=== PATIENT | female | born 1995 | race Caucasian/White ===

== ENCOUNTER 2018-09-17 06:26 | Inpatient (IN) | payer MEDICAID, SELFPAY ==
[2018-09-17] VITALS (20 sets, daily range): BP systolic 84–125; BP diastolic 48–78; PULSE 102–130; RESP 16–23; TEMP 36.9–39.3; O2SAT 94–99; BMI 33.4; BMI 33.9
--- NOTE | 2018-09-17 06:30 | CT_ITS ---
STUDY: CT SOFT TISSUE NECK WITH CONTRAST REASON FOR EXAM: Female, 22 years old. Left-sided facial swelling after decompressing a boil. RADIATION DOSAGE (If Supplied By Facility): CTDIvol = ( 21.80 ) mGy, DLP = ( 669.53 ) mGycm TECHNIQUE: The patient was scanned in a multi-detector CT scanner. High resolution transaxial imaging was performed following intravenous administration of 100 ml of Isovue 300 contrast material. Sagittal and coronal images were reconstructed. Individualized dose optimization techniques were used for this CT. COMPARISON: None. FINDINGS: Normal bilateral parotid glands. There is abnormal soft tissue attenuation in the cloth feeder space as well as adjacent to the left masseter muscle and parotid glands consistent with sequela of acute inflammation. There appears to be diffuse groundglass attenuation and soft tissue edema within the subcutaneous tissues adjacent to the mandible suggestive of a local infection. There is no well-defined abscess. There is also some fluid on the right adjacent to the right submandibular gland and in the cloth feeder space. Normal bilateral cloth feeder spaces. Normal bilateral parapharyngeal spaces. Normal bilateral carotid spaces. Normal bilateral sublingual and submandibular glands and spaces. Normal visualized nasopharynx. Normal retropharyngeal space. Normal perivertebral space. Normal visualized bilateral faucial tonsils. The visualized tongue, tongue base and oropharynx are normal. Appears to be an enlarged right-sided submandibular node. This may be reactive. There is also enlargement of a left submandibular node. There are also enlarged bilateral level 2 nodes. The largest right-sided level 2A node measures 2.9 x 1.4 x 1.3 cm. The largest left sided level 2A node measures approximately 3.2 x 1.8 x 1.4 cm in size. There is no demonstrated solid or cystic mass lesion. There is no abnormal contrast enhancement. Normal epiglottis, bilateral vallecula and hypopharynx. The pre-epiglottic and paraglottic adipose spaces are normal. Normal visualized bilateral piriform sinuses, aryepiglottic folds, vocal cords, and arytenoid-cricoid articulations. Normal subglottic trachea. Normal bilateral lobes of the thyroid gland. Normal visualized pulmonary apices. Normal visualized paranasal sinuses. Normal visualized cervical spine. CT/Soft Tissue Neck WITH Contrast IMPRESSION: 1. There is a soft tissue edema and nonspecific fluid in the left cloth feeder space, left submandibular space and left face apparently related to acute infection. The source is unclear from this CT. There is no evidence for abscess. 2. Cervical lymphadenopathy, possibly reactive. Neoplastic etiologies are not excluded. Electronically Signed: Li Brown MD at 7:59 EST , Service support ,
--- NOTE | 2018-09-17 06:31 | ED.VISSUMM ---
- ER Visit Summary Date of Service: 09/17/18 Chief Complaint: [] Facial swelling History of Present Illness: The patient is a 22 F [] patient stated she woke up this morning with significant left cheek and neck swelling. She stated she thinks is from a pimple that she broke open a week ago. In his been sore. Over the last couple days the soreness is increased in her left cheek and upper neck. She took some ibuprofen but came in this morning due to the significant swelling. She is never had this before. She denies this coming from her teeth. Current severity is moderate to severe and she is swallowing her secretions fine. No abscess per patient. Physical Examination: [] Vital signs reviewed General: Well-nourished well-developed Head: Normocephalic atraumatic Eyes: Pupils equal round and reactive to light extraocular movements intact ENT: TMs clear no hemotympanum patient has significant cellulitis and swelling to her left lower cheek and lip. There is submental and the undersurface of her chin has erythema warmth and swelling as well. There is no abscess palpated. Neck: Nontender full range of motion Cardiovascular: Regular rate rhythm no murmurs normal S1-S2 Respiratory: No distress clear to auscultation bilaterally chest nontender Abdomen: Soft nontender nondistended normal bowel sounds no masses Back: Nontender no CVA tenderness Extremities: Nontender active range of motion ?4 extremities no trauma Skin: See above Neuro alert oriented cranial nerves II through XII intact normal strength sensation reflexes Test Results: [] Emergency Department Course and Treatment: [] Patient's soft tissue under her tongue shows no evidence of Ladarius's angina. She does have some discoloration on the inside of her left buccal region and undersurface of her lip. At this time I think she has a significant facial and upper neck cellulitis. IV established and given IV fluids and antibiotics with Zosyn and vancomycin. Pain medicine given. Culture sent of her blood. CT soft tissue neck obtained to rule out abscess. Patient will be admitted for a significant facial cellulitis. Results of her CAT scan will be signed out to the oncoming physician in the emergency department Treatment Plan: [] Disposition: [] Impression: [] Left facial cellulitis Left upper neck cellulitis Critical Care time 74 minutes This note was generated with [employer] software. It may contain incorrect words, spelling, and punctuation that were not noted in review of the chart prior to signing <Michael Andrade - Last Filed: 09/17/18 06:31> - ER Visit Summary Date of Service: 09/17/18 Chief Complaint: [] History of Present Illness: The patient is a 22 F [] Physical Examination: [] Test Results: I assumed the patient's care from the overnight physician at 7:05 AM. Patient is being treated with IV antibiotics for facial cellulitis and swelling. Concern is also for sepsis. CBC showed a white count of 15,100. Normal hemoglobin. No bands. Electrolytes unremarkable. Potassium 3.3. Anion gap of 12. Normal creatinine. Normal liver enzymes. Lactic acid was 1.5. Emergency Department Course and Treatment: Patient treated with IV fluids. IV Zosyn and IV vancomycin for the infection. IV Toradol and p.o. Tylenol for the fever. She also received morphine for pain and Zofran for nausea. Treatment Plan: Repeat exam patient is doing well at oh 7:50 AM. I very spoken to the hospitalist and the patient will be admitted to the PCU. Disposition: Admission Impression: Acute facial cellulitis with soft tissue swelling #2 Sepsis This note was generated with [employer] dictation software. It may contain incorrect words, spelling, and punctuation that were not noted in review of the chart prior to signing <Gee Parsons - Last Filed: 09/17/18 07:56> ED Disposition <Michael Andrade - Last Filed: 09/17/18 06:31> <Gee Parsons - Last Filed: 09/17/18 07:56> - Plan for ED Patient: Chief Complaint: Edema Referrals: Josiah Abdi III, MD [Primary Care Provider] -
[2018-09-17] MEDS: 0.9% Normal Saline 1,000 ML 1000 ML IV ×2 (06:41→07:01)
[2018-09-17] MEDS: Ondansetron 4 MG/2 ML Vial IV ×2 (06:41→11:26)
[2018-09-17] MEDS: Acetaminophen 500 MG Tablet 1000 MG PO (06:42)
[2018-09-17] MEDS: Ketorolac 15 MG/ML Vial IV (06:47)
[2018-09-17] MEDS: Morphine 4 MG/ML Syringe IV (06:48)
[2018-09-17 07:02] LABS: Absolute Lymphocyte Count 0.29 X10^3/ul (0.83-4.51); Absolute Neutrophil Count 13.8 X10^3/uL (2.0-7.7); Basophil# 0.01 X10^3/uL; Basophil% 0.1 % (0-1); Hematocrit 40.5 % (37-47); Hemoglobin 13.8 g/dl (12.0-15.0); Lymphocyte # 0.29 X10^3/ul (4.0); Lymphocyte % 1.9 % (19-41); Mean Corp Hgb Conc 34.1 g/gl (32-36); Mean Corpuscular Hgb 28.6 pg (27.0-32.0); Mean Platelet Vol. 11.7 fl (6.2-12.0); Monocyte# 0.84 X10^3/uL; Monocyte% 5.6 % (0-10); Neutrophil # 13.79 X10^3/uL (2.7-7.7); Neutrophil % 91.2 % (47-70); Platelet Count 161 K/mm3 (150-450); RBC Distribution Width CV 13.7 % (11.6-14.6); RBC Distribution Width SD 41.8 fl (35.1-43.9); Red Blood Count 4.82 M/mm3 (4.2-5.4); White Blood Count 15.1 K/mm3 (4.4-11.0)
[2018-09-17 07:03] LABS: POSITIVE DIFFERENTIAL YES
[2018-09-17 07:04] LABS: Differential Indicated SCAN CRITERIA MET; POSITIVE COUNT NO; POSITIVE MORPHOLOGY NO
[2018-09-17 07:13] LABS: AST(SGOT) 25 U/L (15-37); Alanine Aminotransfer ALT/SGPT 28 U/L (13-56); Albumin, Serum 3.5 g/dL (3.2-5.0); Alkaline Phosphatase 71 U/L (45-117); Anion Gap 12 (5-15); BUN 11 mg/dL (7-18); BUN/Creat Ratio 13.4 RATIO (10-20); Bilirubin, Direct 0.19 mg/dL (0.00-0.30); Calcium,Total 8.6 mg/dL (8.5-10.1); Chloride 106 mmol/L (98-107); Creatinine, Serum 0.82 mg/dL (0.55-1.02); EST Glomerular Filtration Rate 90 mL/min (>60); Est Glom Filt Rate - Afr Amer 109 mL/min (>60); Estimated Creatinine Clearance 106.72 ml/min; Globulin 3.6 g/dL (2.2-4.2); Glucose 125 mg/dL (74-106); Potassium 3.3 mmol/L (3.5-5.1); Protein, Total 7.1 g/dL (6.4-8.2); Sodium Level 137 mmol/L (136-145)
[2018-09-17 07:24] LABS: Differential Comment SCANNED
[2018-09-17 07:27] LABS: Lactic Acid 1.5 mmol/L (0.4-2.0)
--- NOTE | 2018-09-17 07:55 | PCM.HP.STD ---
Problem List (1) Facial cellulitis Status: Acute (2) Sepsis Status: Acute History of Present Illness Date of Admission: 09/17/18 Chief Complaint: Facial swelling The patient is a 22 year old F [] Past Medical History Allergies azithromycin [From Zithromax] Allergy (Verified 09/17/18 06:32) Unknown diphenhydramine HCl [From Benadryl] Allergy (Verified 09/17/18 06:32) Unknown Home Medications: Ambulatory Orders Medication Instructions Recorded NK 09/17/18 Smoking Status: Current every day smoker Review of Systems Constitutional: Denies: Chills, Fever, Weight Change HEENT: Denies: Head Aches, Sinus Congestion, Sinus Drainage Cardiovascular: Denies: Chest Pain, Palpitations Respiratory: Denies: Cough, Shortness of breath at rest, Sputum production Gastrointestinal: Denies: Abdominal Pain, Nausea, Vomiting Genitourinary: Denies: Dysuria Musculoskeletal: Denies: Joint Pain, Joint Tenderness Skin: Denies: Rash, Wounds Neurological: Denies: Numbness, Tingling, Focal weakness Psychiatric: Denies: Anxiety, Depression, Homicidal Ideations, Suicidal Ideations Hematologic/ Lymphatic: Denies: Easy Bruising, Easy Bleeding VTE Information - Inpt Only VTE Present on Admission: No VTE Pharm Prophylaxis ordered?: Yes Patient Problems: Active and Suspected Problems Facial cellulitis (Acute) Sepsis (Acute) - Physical Exam General: Alert, Oriented x3, Cooperative HEENT: Atraumatic, PERRLA, EOMI, Normocephalic Neck: Supple, No JVD, Negative Carotid Bruits Lungs: Clear to auscultation, Normal air movement Cardiovascular: Regular rate, No murmurs Abdomen: Bowel Sounds Present, Soft, Non Tender Extremities: No edema, Capillary Refill Less than 3 Seconds Skin: No rashes, No breakdown Musculoskeletal: No Tenderness to Palpation of Joints or Extremities Neurological: Cranial nerves II-XII grossly intact Psych/Mental Status: Normal Affect, Appropriate Vital Signs Temp Pulse Resp BP Pulse Ox 101.6 F H 120 H 20 H 105/59 L 95 09/17/18 07:31 09/17/18 07:31 09/17/18 07:31 09/17/18 07:31 09/17/18 07:31 Oxygen Delivery Method Room Air Weight: 99.79 kg Body Mass Index (BMI) 33.4 Laboratory Tests Past 24 Hrs 09/17/18 09/17/18 09/17/18 06:40 06:40 06:40 WBC 15.1 H RBC 4.82 Hgb 13.8 Hct 40.5 MCV 84.0 MCH 28.6 MCHC 34.1 RDW 13.7 RDW Differential 41.8 Plt Count 161 MPV 11.7 Immature Gran % (Auto) 1.200 H Neut % (Auto) 91.2 H Lymph % (Auto) 1.9 L [place] % (Auto) 5.6 Eos % (Auto) 0.0 Baso % (Auto) 0.1 Absolute Neuts (auto) 13.8 H Absolute Lymphs (auto) 0.29 L Total Counted Not Reportable Differential Comment SCANNED Sodium 137 Potassium 3.3 L Chloride 106 Carbon Dioxide 19.0 L Anion Gap 12 BUN 11 Creatinine 0.82 Estim Creat Clear Calc 106.72 Est GFR (MDRD) Af Amer 109 Est GFR (MDRD) Non-Af 90 BUN/Creatinine Ratio 13.4 Glucose 125 H Lactic Acid 1.5 Calcium 8.6 Total Bilirubin 1.00 Direct Bilirubin 0.19 AST 25 ALT 28 Alkaline Phosphatase 71 Total Protein 7.1 Albumin 3.5 Globulin 3.6 Assessment/Plan All Active Problems Facial cellulitis (Acute) Sepsis (Acute) Code Visit Inpatient E&M: 43385 Init Hosp L3
--- NOTE | 2018-09-17 09:21 | PCM.RX.CS ---
Consult Pharmacy has been consulted to manage selected antiobiotic: Vancomycin Type of Consult: New start Suspected Infection: Sepsis, Skin/Soft tissue Prior Doses of Antibiotics Received/Current Regimen: VANCOMYCIN 1500MG IV X1 IN ED 09/17/18 @0729 Labs: Sodium 137 mmol/L (136-145) 09/17/18 06:40 Potassium 3.3 mmol/L (3.5-5.1) L 09/17/18 06:40 Chloride 106 mmol/L (98-107) 09/17/18 06:40 Carbon Dioxide 19.0 mmol/L (21.0-32.0) L 09/17/18 06:40 Anion Gap 12 (5-15) 09/17/18 06:40 BUN 11 mg/dL (7-18) 09/17/18 06:40 Creatinine 0.82 mg/dL (0.55-1.02) 09/17/18 06:40 Est GFR (MDRD) Af Amer 109 mL/min (>60) 09/17/18 06:40 Est GFR (MDRD) Non-Af 90 mL/min (>60) 09/17/18 06:40 BUN/Creatinine Ratio 13.4 RATIO (10-20) 09/17/18 06:40 Glucose 125 mg/dL (74-106) H 09/17/18 06:40 Weight used for dosin kg Estimated Creatinine Clearance: 106ML/MIN Goal Trough: 15-20 mcg/mL Pharmacy Plan for Drug Dosing: PLAN/RECOMMENDATIONS 1. Vancomycin 1250mg IV Q8hr per protocol. Start 09/17/18 @1500 2. Trough scheduled prior to the 4th total dose of vancomycin 09/18/18 @0630 3. Pharmacy Service will continue to monitor and adjust dosing as required.
[2018-09-17] MEDS: 0.9% Normal Saline 1,000 ML 100 ML IV ×2 (09:27→18:18)
[2018-09-17] MEDS: oxyCODONE 5 MG Tablet PO ×2 (10:08→15:46)
[2018-09-17] MEDS: 0.9% NaCl Peripheral Flush Adult/Peds IV ×7 (10:45→23:03)
--- NOTE | 2018-09-17 11:44 | PCM.HP.STD ---
<Nicholas Quiroz - Last Filed: 09/17/18 11:44> Problem List (1) Sepsis Status: Acute (2) Facial cellulitis Status: Acute (3) Obesity Status: Chronic (4) Nicotine abuse Status: Chronic History of Present Illness Date of Admission: 09/17/18 Chief Complaint: facial pain and swelling The patient is a 22 year old F with a past medical history of unspecified spinal cancer in childhood in remission, obesity, nicotine abuse, who presented to the emergency room with complaints of facial swelling and pain. This began after she had picked a pimple on her face, left cheek, about 3 days ago. The next day she woke up and it felt very swollen and painful. She began having fevers and chills. She denies history of cellulitis. There is no drainage. She has pain throughout her left cheek, chin, and neck, with increased redness and warmth. She also had some nausea and vomiting, no diarrhea. She denies any tightness in her throat, shortness of breath, or feeling of airway closure. In the ER she appeared septic with tachycardia, leukocytosis, and a fever of 102.7, negative lactate. [] Past Medical History Past Medical History (Chronic Problems): Chronic Problems Obesity (Chronic) Nicotine abuse (Chronic) Allergies azithromycin [From Zithromax] Allergy (Verified 09/17/18 06:32) Unknown diphenhydramine HCl [From Benadryl] Allergy (Verified 09/17/18 06:32) Unknown Home Medications: Ambulatory Orders Medication Instructions Recorded NK 09/17/18 Surgical History: - - Spinal surgery Psychiatric History: No pertinent psych hx BUSINESS ADMINISTRATION PROGRAM CHAIR History: No pertinent BUSINESS ADMINISTRATION PROGRAM CHAIR history Lives: With Family Smoking Status: Current every day smoker Tobacco Use: Cigarettes Alcohol: None Drugs: None - *Family History Maternal History Items: Diabetes Paternal History Items: No pertinent history Sibling History Items: No pertinent history Review of Systems Constitutional: Reports: Chills, Fever. Denies: Weight Change HEENT: Denies: Head Aches, Sinus Congestion, Sinus Drainage Cardiovascular: Denies: Chest Pain, Palpitations Respiratory: Denies: Cough, Shortness of breath at rest, Sputum production Gastrointestinal: Denies: Abdominal Pain, Nausea, Vomiting Genitourinary: Denies: Dysuria Musculoskeletal: Denies: Joint Pain, Joint Tenderness Skin: Reports: Rash, - - Facial and neck erythema, pain, swelling. Denies: Wounds Neurological: Denies: Numbness, Tingling, Focal weakness Psychiatric: Denies: Anxiety, Depression, Homicidal Ideations, Suicidal Ideations Hematologic/ Lymphatic: Denies: Easy Bruising, Easy Bleeding VTE Information - Inpt Only VTE Present on Admission: No VTE Mechan Device Prophylaxis: None VTE Pharm Prophylaxis ordered?: No Reason prophylaxis not ordered:: Procedure Not Indicated Patient Problems: Active and Suspected Problems Facial cellulitis (Acute) Sepsis (Acute) - Physical Exam General: Alert, Oriented x3, Cooperative HEENT: Atraumatic, PERRLA, EOMI, Normocephalic, - - She has swelling, erythema, tenderness of the left cheek, chin, neck, no adenopathy appreciated, she has a muffled voice and difficulty opening her mouth Neck: Supple, No JVD, Negative Carotid Bruits Lungs: Clear to auscultation, Normal air movement Cardiovascular: Regular rate, No murmurs Abdomen: Bowel Sounds Present, Soft, Non Tender Extremities: No edema, Capillary Refill Less than 3 Seconds Skin: No rashes, No breakdown Musculoskeletal: No Tenderness to Palpation of Joints or Extremities Neurological: Cranial nerves II-XII grossly intact Psych/Mental Status: Normal Affect, Appropriate, Alert and oriented to time, place, person, mood and affect Vital Signs Temp Pulse Resp BP Pulse Ox 98.6 F 108 H 16 87/52 L 95 09/17/18 10:46 09/17/18 11:00 09/17/18 10:46 09/17/18 10:46 09/17/18 10:46 Oxygen Delivery Method Room Air Weight: 223 lb 1.725 oz Body Mass Index (BMI) 33.9 Laboratory Tests Past 24 Hrs 09/17/18 09/17/18 09/17/18 06:40 06:40 06:40 WBC 15.1 H RBC 4.82 Hgb 13.8 Hct 40.5 MCV 84.0 MCH 28.6 MCHC 34.1 RDW 13.7 RDW Differential 41.8 Plt Count 161 MPV 11.7 Immature Gran % (Auto) 1.200 H Neut % (Auto) 91.2 H Lymph % (Auto) 1.9 L [place] % (Auto) 5.6 Eos % (Auto) 0.0 Baso % (Auto) 0.1 Absolute Neuts (auto) 13.8 H Absolute Lymphs (auto) 0.29 L Total Counted Not Reportable Differential Comment SCANNED Sodium 137 Potassium 3.3 L Chloride 106 Carbon Dioxide 19.0 L Anion Gap 12 BUN 11 Creatinine 0.82 Estim Creat Clear Calc 106.72 Est GFR (MDRD) Af Amer 109 Est GFR (MDRD) Non-Af 90 BUN/Creatinine Ratio 13.4 Glucose 125 H Lactic Acid 1.5 Calcium 8.6 Total Bilirubin 1.00 Direct Bilirubin 0.19 AST 25 ALT 28 Alkaline Phosphatase 71 Total Protein 7.1 Albumin 3.5 Globulin 3.6 Assessment/Plan All Active Problems Facial cellulitis (Acute) Sepsis (Acute) 1. Acute sepsis 2/2 facial cellulitis - Continue vanc/zosyn. Discussed with Infectious disease, with trismus and muffled voice she is at risk for developing airway compromise and the maxilofacial surgeon will need consulted. Sepsis as evidenced by WBC elevation, fever, tachycardia, negative lactate. 2. Nicotine abuse - declines patch 3. Obesity - dietary eval 4. Hypokalemia - replete. 5. Hx spinal cancer as child, in remission since 2011 s/p surgery and rads, treated by [facility] DVT ppx: early ambulation DC planning: likely home with family at co. This patient was seen by Nicholas Quiroz PA-C under the supervision of Doctor Caceres. <Geeta Caceres - Last Filed: 09/17/18 14:24> Problem List (1) Facial cellulitis Status: Acute (2) Sepsis Status: Acute History of Present Illness The patient is a 22 year old F [] Past Medical History Allergies azithromycin [From Zithromax] Allergy (Verified 09/17/18 06:32) Unknown diphenhydramine HCl [From Benadryl] Allergy (Verified 09/17/18 06:32) Unknown - Physical Exam Vital Signs Temp Pulse Resp BP Pulse Ox 99.7 F H 112 H 18 89/56 L 99 09/17/18 12:48 09/17/18 12:48 09/17/18 12:48 09/17/18 12:48 09/17/18 12:48 Oxygen Delivery Method Room Air Weight: 101.2 kg Body Mass Index (BMI) 33.9 Intake and Output for Last 24 Hours 09/15/18 09/16/18 09/17/18 23:59 23:59 23:59 Intake Total 3312 / 3312 Balance 3312 / 3312 Laboratory Tests Past 24 Hrs 09/17/18 09/17/18 09/17/18 06:40 06:40 06:40 WBC 15.1 H RBC 4.82 Hgb 13.8 Hct 40.5 MCV 84.0 MCH 28.6 MCHC 34.1 RDW 13.7 RDW Differential 41.8 Plt Count 161 MPV 11.7 Immature Gran % (Auto) 1.200 H Neut % (Auto) 91.2 H Lymph % (Auto) 1.9 L [place] % (Auto) 5.6 Eos % (Auto) 0.0 Baso % (Auto) 0.1 Absolute Neuts (auto) 13.8 H Absolute Lymphs (auto) 0.29 L Total Counted Not Reportable Differential Comment SCANNED Sodium 137 Potassium 3.3 L Chloride 106 Carbon Dioxide 19.0 L Anion Gap 12 BUN 11 Creatinine 0.82 Estim Creat Clear Calc 106.72 Est GFR (MDRD) Af Amer 109 Est GFR (MDRD) Non-Af 90 BUN/Creatinine Ratio 13.4 Glucose 125 H Lactic Acid 1.5 Calcium 8.6 Total Bilirubin 1.00 Direct Bilirubin 0.19 AST 25 ALT 28 Alkaline Phosphatase 71 Total Protein 7.1 Albumin 3.5 Globulin 3.6 Assessment/Plan This patient was seen in conjunction with VANDANA Aggarwal. I have independently interviewed and examined the patient and reviewed pertinent historical, laboratory, and other data. Please refer to VANDANA Aggarwal note for his patient's presentation, findings, and recommendations. I have reviewed and his note and concur with his documentation 22-year-old female with past medical history of spinal tumor, unspecified type, status post surgical removal, radiation therapy in childhood, BCC who comes in with complaints of left facial pain as well as swelling that started suddenly. Patient remembers picking a pimple on the left cheek, woke up and felt a very swollen and painful. It was associated with chills and fever. She denied any tightness in the throat or shortness of breath. Denied any chest pain or dizziness. She admits to some nausea and vomiting but no diarrhea. PMHx: Obesity, nicotine abuse PSHx: Post spinal tumor removal FHx: DM in mother SHX: Smokes, does not drink, denies use of illicit drugs ROS; Essentially negative apart from HPI Physical Exam: Gen: Looks in some discomfort, obese, not pale, not jaundiced, able to complete sentences Head: Swelling of her left lower hamzah and neck, spreading to left mandibular region and lips. No swelling of tongue or pharynx. CVS:HS I +II, regular, no murmurs RESP: CTA GI: BS present and normal, soft, nontender, no palpable organs EXT:No edema ASSESSMENT: 1. Sepsis secondary to left jaw/facial cellulitis 2. Nicotine dependence 3. Hypokalemia 4. Obesity 5. H/o spinal tumor s/p removal 6. DVT PPx- Early ambulation Plan: Start on empiric antibiotics, ID consult, Monitor vitals closely IV fluids resusitation, strict I & Os Replace potassium Labs in a.m. Follow-up on blood cultures Code Visit Inpatient E&M: 43519 Init Hosp L3
--- NOTE | 2018-09-17 12:15 | PCM.HP.ID ---
Problem List (1) Facial cellulitis Status: Acute Reason for Consult: facial cellulitis Consulted by: Dr. Caceres History of Present Illness: The patient is a 22 year old F with h/o obesity and smoking who presented to ED this AM with sudden onset of diffuse facial swelling, shakes/chills, severe 10/10 aching jaw pain. Had pimple on L chin several days ago. Area around it with some soreness, but sx acutely worsened when she woke up this AM. No drainage. Having difficulty opening jaw and having some voice changes. No recent abx. Denies SOB. Mouth is dry, no issues with handling secretions. Had some associated n/v this AM. Came to ED, CT done, bcx sent, started on vanc/zosyn and admitted. Full ROS performed and neg except as noted above. Denies any h/o skin abscess or MRSA infection. No h/o dental problems or infections. - Medical History Past Medical History (Chronic Problems): Chronic Problems Obesity (Chronic) Nicotine abuse (Chronic) Allergies/Adverse Reactions: Allergies azithromycin [From Zithromax] Allergy (Verified 09/17/18 06:32) Unknown diphenhydramine HCl [From Benadryl] Allergy (Verified 09/17/18 06:32) Unknown Home Medications: Ambulatory Orders Medication Instructions Recorded NK 09/17/18 - Social History SMOKING STATUS:: Current every day smoker Vital Signs Temp Pulse Resp BP Pulse Ox 98.6 F 108 H 16 87/52 L 95 09/17/18 10:46 09/17/18 11:00 09/17/18 10:46 09/17/18 10:46 09/17/18 11:50 Oxygen Delivery Method Room Air Weight: 101.2 kg Body Mass Index (BMI) 33.9 Laboratory Tests Past 24 Hrs 09/17/18 09/17/18 09/17/18 06:40 06:40 06:40 WBC 15.1 H RBC 4.82 Hgb 13.8 Hct 40.5 MCV 84.0 MCH 28.6 MCHC 34.1 RDW 13.7 RDW Differential 41.8 Plt Count 161 MPV 11.7 Immature Gran % (Auto) 1.200 H Neut % (Auto) 91.2 H Lymph % (Auto) 1.9 L [place] % (Auto) 5.6 Eos % (Auto) 0.0 Baso % (Auto) 0.1 Absolute Neuts (auto) 13.8 H Absolute Lymphs (auto) 0.29 L Total Counted Not Reportable Differential Comment SCANNED Sodium 137 Potassium 3.3 L Chloride 106 Carbon Dioxide 19.0 L Anion Gap 12 BUN 11 Creatinine 0.82 Estim Creat Clear Calc 106.72 Est GFR (MDRD) Af Amer 109 Est GFR (MDRD) Non-Af 90 BUN/Creatinine Ratio 13.4 Glucose 125 H Lactic Acid 1.5 Calcium 8.6 Total Bilirubin 1.00 Direct Bilirubin 0.19 AST 25 ALT 28 Alkaline Phosphatase 71 Total Protein 7.1 Albumin 3.5 Globulin 3.6 - Other Studies Radiology: [] reviewed Other Studies: [] Route of nutrition/ use of supplements: [] Nutritional Intake: [] IV Site: [] [place] Catheter: [] - Physical Exam General: Alert, Oriented x3, Cooperative, - - ill appearing, uncomfortable HEENT: Atraumatic, PERRLA, EOMI, - - Lower half of face with diffuse redness, swelling, and tenderness; L more than R. Neck: Supple Lungs: Clear to auscultation, Normal air movement Cardiovascular: Regular rate, Regular Rhythm, No murmurs Abdomen: Soft, Non Tender, Non-Distended Extremities: No edema Skin: No rashes - no other rashes IV Site: Peripheral, without redness Musculoskeletal: No Tenderness to Palpation of Joints or Extremities Neurological: Cranial nerves II-XII grossly intact - Assessment/Plan Antibiotics: [] Assessment/Plan: [] Active and Suspected Problems Facial cellulitis (Acute) Sepsis (Acute) sepsis due to facial cellulitis - concern for possible Ladarius's angina. CT shows possible involvement of submandibular space. Bcx pending. Difficulty opening jaw and some voice changes. Will cover with vanc/unasyn, recommend OMFS eval; primary team will contact. Will follow, thank you, d/w primary team.
[2018-09-17] MEDS: Acetaminophen 325 MG Tablet 650 MG PO ×2 (13:19→21:19)
--- NOTE | 2018-09-17 17:18 | PCM.CONS.GEN ---
Problem List (1) Facial cellulitis Status: Acute (2) Sepsis Status: Acute Reason for Consult Date of Consultation: 09/17/18 Reason for Consultation: facial cellulitis History of Present Illness: The patient is a 22 year old F Who presents with acute left cheek swelling after popping a pimple over the skin. This rapidly became swollen and painful over the last 2 days. This has improved on IV antibiotics over the course of today. She reports swelling and tightness over the left neck has subsided and currently denies hoarseness, dysphagia, or worsening pain. She denies prior occurrence or frequent severe infection. She denies diabetes or immune suppression. She denies dental caries or infection. She denies animal or insect bites. 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 Denies: Difficulty Hearing, Difficulty Swallowing, Post Nasal Drip, Sinus Congestion Cardiovascular: Denies: Chest Pain, Chest Pressure, Chest Tightness Respiratory: Denies: Cough, Hemoptysis, Shortness of Breath Gastrointestinal: Denies: Abdominal Pain Genitourinary: Denies: Dysuria Musculoskeletal: Denies: Arm Pain, Back Pain, Neck Pain Neurological: Denies: Balance problems, Blurred vision, Difficulty swallowing Hematologic/ Lymphatic: Denies: Anemia, Easy Bruising, Easy Bleeding Patient Problems: Active and Suspected Problems Facial cellulitis (Acute) Sepsis (Acute) Subjective: Patient reports that her neck swelling has subsided and that she feels there has been improvement in the swelling of her left face and cheek. Objective: Well appearing female, eating dinner at bedside without difficultly. Soft, moderately tender edema of the left cheek with overlying erythema is noted. No consolidation or pointing to suggest abscess is noted. - Physical Exam General: Alert, Oriented x3, Cooperative, No apparent distress HEENT: Atraumatic, PERRLA, EOMI, Normocephalic, TM's Clear, EAC Clear Oral: Moist Mucosa, No Gingival or Mucosal Lesions/ Ulcerations, - - good dental condition wihtout caries Neck: Supple, No Nodes Lungs: Normal air movement, No rhonchi, No wheeze Cardiovascular: Regular rate, Regular Rhythm Extremities: No clubbing, No cyanosis Skin: - - mild erythema over left cheek Lymphatic: - - shotty adenopathy left neck Neurological: Cranial nerves II-XII grossly intact Psych/Mental Status: Normal Affect, Alert and oriented to time, place, person, mood and affect Vital Signs Temp Pulse Resp BP Pulse Ox 99.2 F H 112 H 20 H 89/64 L 96 09/17/18 15:44 09/17/18 16:39 09/17/18 15:44 09/17/18 15:44 09/17/18 15:44 Oxygen Delivery Method Room Air Weight: 101.2 kg Body Mass Index (BMI) 33.9 Intake and Output for Last 24 Hours 09/15/18 09/16/18 09/17/18 23:59 23:59 23:59 Intake Total 3312 / 3312 Balance 3312 / 3312 Laboratory Tests Past 24 Hrs 09/17/18 09/17/18 09/17/18 06:40 06:40 06:40 WBC 15.1 H RBC 4.82 Hgb 13.8 Hct 40.5 MCV 84.0 MCH 28.6 MCHC 34.1 RDW 13.7 RDW Differential 41.8 Plt Count 161 MPV 11.7 Immature Gran % (Auto) 1.200 H Neut % (Auto) 91.2 H Lymph % (Auto) 1.9 L Terry % (Auto) 5.6 Eos % (Auto) 0.0 Baso % (Auto) 0.1 Absolute Neuts (auto) 13.8 H Absolute Lymphs (auto) 0.29 L Total Counted Not Reportable Differential Comment SCANNED Sodium 137 Potassium 3.3 L Chloride 106 Carbon Dioxide 19.0 L Anion Gap 12 BUN 11 Creatinine 0.82 Estim Creat Clear Calc 106.72 Est GFR (MDRD) Af Amer 109 Est GFR (MDRD) Non-Af 90 BUN/Creatinine Ratio 13.4 Glucose 125 H Lactic Acid 1.5 Calcium 8.6 Total Bilirubin 1.00 Direct Bilirubin 0.19 AST 25 ALT 28 Alkaline Phosphatase 71 Total Protein 7.1 Albumin 3.5 Globulin 3.6 Assessment/Plan All Active Problems Facial cellulitis (Acute) Sepsis (Acute) Acute cellulitis of left face and cheek following trauma to facial skin lesion. CT is reviewed and I see no clinical evidence of abscess. She reports improvement with IV antibiotic and I would anticipate ongoing improvement. We discussed that signs of progression such as increasing pain, redness, firmness, enlargement, or continue fever and elevated white count may suggest abscess requiring surgical intervention, but that I feel the risk for this is low given her otherwise good health. I will continue to follow hospital course and may be notified of any progression for evaluation but agree with the current course of treatment.
[2018-09-17] MEDS: Calcium Carbonate 500 MG Tablet 1000 MG PO (21:19)
[2018-09-17] MEDS: Morphine 2 MG/ML Syringe 1 MG IV (21:33)
[2018-09-17] MEDS: 0.9% Normal Saline 1,000 ML 999 ML IV (23:03)
[2018-09-18] VITALS (17 sets, daily range): BP systolic 88–110; BP diastolic 50–69; PULSE 103–129; RESP 14–26; TEMP 36.8–37.9; O2SAT 94–99
--- NOTE | 2018-09-18 03:09 | EKG12_ITS ---
Test Reason : CP Blood Pressure : / mmHG Vent. Rate : 124 BPM Atrial Rate : 124 BPM P-R Int : 120 ms QRS Dur : 080 ms QT Int : 280 ms P-R-T Axes : 049 034 -08 degrees QTc Int : 402 ms Sinus tachycardia Low voltage QRS Nonspecific T wave abnormality Abnormal ECG Confirmed by KENISHA ROWE, CHACHA ([id number]), material expeditor DEANDRE BERUMEN ([id number]) on 09/20/2018 8:30:30 AM Referred By: MADHAV Confirmed By:CHACHA DE MD
[2018-09-18] MEDS: Acetaminophen 325 MG Tablet 650 MG PO ×3 (05:10→21:55)
[2018-09-18] MEDS: 0.9% Normal Saline 1,000 ML 100 ML IV ×2 (06:56→23:20)
[2018-09-18 07:12] LABS: Anion Gap 11 (5-15); BUN 6 mg/dL (7-18); BUN/Creat Ratio 8.6 RATIO (10-20); Calcium,Total 6.8 mg/dL (8.5-10.1); Chloride 112 mmol/L (98-107); EST Glomerular Filtration Rate 108 mL/min (>60); Est Glom Filt Rate - Afr Amer 131 mL/min (>60); Estimated Creatinine Clearance 125.01 ml/min; Glucose 93 mg/dL (74-106); Potassium 3.1 mmol/L (3.5-5.1); Sodium Level 142 mmol/L (136-145)
[2018-09-18 07:28] LABS: Vancomycin, Trough Level 11.2 ug/mL (5.0-15.0)
[2018-09-18] MEDS: oxyCODONE 5 MG Tablet PO ×3 (07:46→17:26)
[2018-09-18 08:31] LABS: Magnesium 1.4 mg/dL (1.6-2.6)
--- NOTE | 2018-09-18 10:25 | CASEMGMT ---
JEFF GRANGER assessment: Face to Face with patient for initial transition planning/care coordination assessment. JEFF GRANGER introduced self and role at [facility], pt voices understanding and consents to assessment at this time. Pt is lying in bed in no distress at this time. Pt is A/Ox4 at this time and answer all questions appropriately at this time. Pt's sig other at bedside during assessment. Care providers, pharmacy, and demographics verified at this time. PCP: Josiah Abdi Specialists: Pt states currently has no specialists. Preferred Pharmacy: [facility] retail pharm Insurance: [facility] Prescription Benefit: [facility] Living Will/HPOA: Pt states does not have LW/HPOA and declines info at this time. LNOK: Dominga Barker, mother; Margie Barker, grandmother Living Arrangements: Pt states lives with boyfriend and 2 children in house and states no concerns at home at this time. Pt is independent with ADL's. Transportation: Pt states drives self and states no transportation concerns at this time. DME/HHC: Pt states does not have any current DME and states no need for any at this time. Pt states no hx of HHC or SNF in the past. Pt states no concerns with going home at time of dishcarge. Pt states is currently unemployed. Pt states smokes 1/2pack/day and does not drink ETOH. Pt state no further concerns/needs at this time. CM to follow for any further discharge planning/needs. Advised pt to ask for CM if any further questions/concerns/needs arise, voices understanding. Plan: [place] JEFF GRANGER
--- NOTE | 2018-09-18 10:25 | PCM.PN.ID ---
Patient Problems: Active and Suspected Problems Facial cellulitis (Acute) Sepsis (Acute) Subjective: Feeling a little better, jaw and swelling slightly improved. Fever overnight. No n/v/d with abx. - Physical Exam General: Alert, Cooperative, No apparent distress Neck: - - diffuse swelling, redness, slightly improved. Mild induration over chin. Lungs: Clear to auscultation, Normal air movement Cardiovascular: Regular rate, Regular Rhythm Abdomen: Soft, Non Tender, Non-Distended Skin: No rashes - no other rash Vital Signs Temp Pulse Resp BP Pulse Ox 99.0 F 126 H 14 105/58 L 99 09/18/18 09:31 09/18/18 09:31 09/18/18 09:31 09/18/18 09:31 09/18/18 09:31 Oxygen Delivery Method Room Air Weight: 101.2 kg Body Mass Index (BMI) 33.9 Intake and Output for Last 24 Hours 09/16/18 09/17/18 09/18/18 23:59 23:59 23:59 Intake Total 6155.5 / 6155.5 2197 / 8 Output Total 200 / 200 Balance 5955.5 / 5955.5 2197 / 8 Laboratory Tests Past 24 Hrs 09/18/18 09/18/18 09/18/18 06:25 06:25 06:25 Sodium 142 Potassium 3.1 L Chloride 112 H Carbon Dioxide 19.0 L Anion Gap 11 BUN 6 L Creatinine 0.70 Estim Creat Clear Calc 125.01 Est GFR (MDRD) Af Amer 131 Est GFR (MDRD) Non-Af 108 BUN/Creatinine Ratio 8.6 L Glucose 93 Calcium 6.8 L Magnesium 1.4 L Vancomycin Trough 11.2 Medical Necessity - Tobacco Use Smoking Status: Current every day smoker Tobacco Use: Cigarettes Route of nutrition/ use of supplements: [] Nutritional Intake: [] IV Site: [] Peraza Catheter: [] - Assessment/Plan Antibiotics: [] Assessment/Plan: [] Active and Suspected Problems Facial cellulitis (Acute) Sepsis (Acute) sepsis due to facial cellulitis - some improvement, bcx neg so far, continue vanc/unasyn. Will follow
--- NOTE | 2018-09-18 10:55 | PCM.RX.CS ---
Consult Pharmacy has been consulted to manage selected antiobiotic: Vancomycin Type of Consult: Follow-up Suspected Infection: Skin/Soft tissue Prior Doses of Antibiotics Received/Current Regimen: Medications Vancomycin HCl 1,250 mg/ (Sodium Chloride) 275 mls @ 167 mls/hr IV Q8H [id number] Last Admin: 09/18/18 07:41 Dose: 167 mls/hr Labs: Sodium 142 mmol/L (136-145) 09/18/18 06:25 Potassium 3.1 mmol/L (3.5-5.1) L 09/18/18 06:25 Chloride 112 mmol/L (98-107) H 09/18/18 06:25 Carbon Dioxide 19.0 mmol/L (21.0-32.0) L 09/18/18 06:25 Anion Gap 11 (5-15) 09/18/18 06:25 BUN 6 mg/dL (7-18) L 09/18/18 06:25 Creatinine 0.70 mg/dL (0.55-1.02) 09/18/18 06:25 Est GFR (MDRD) Af Amer 131 mL/min (>60) 09/18/18 06:25 Est GFR (MDRD) Non-Af 108 mL/min (>60) 09/18/18 06:25 BUN/Creatinine Ratio 8.6 RATIO (10-20) L 09/18/18 06:25 Glucose 93 mg/dL (74-106) 09/18/18 06:25 Vancomycin Trough 11.2 ug/mL (5.0-15.0) 09/18/18 06:25 Goal Trough: 10-15 mcg/mL Pharmacy Plan for Drug Dosin hour trough 11.2 mcg/mL. D/W Dr Fall, will adjust goal level to 10-15 mcg/mL and leave dose the same. Recheck per protocol in 4 days. Pharmacy Service will continue to monitor and adjust dosing as required. Follow-Up Labs: Trough Vancomycin - 2/2 @ 0630
--- NOTE | 2018-09-18 10:58 | PHA.PHARE_ITS ---
Consult Pharmacy has been consulted to manage selected antiobiotic: Vancomycin Type of Consult: Follow-up Suspected Infection: Skin/Soft tissue Prior Doses of Antibiotics Received/Current Regimen: Medications Vancomycin HCl 1,250 mg/ (Sodium Chloride) 275 mls @ 167 mls/hr IV Q8H [id number] Last Admin: 09/18/18 07:41 Dose: 167 mls/hr Labs: Sodium 142 mmol/L (136-145) 09/18/18 06:25 Potassium 3.1 mmol/L (3.5-5.1) L 09/18/18 06:25 Chloride 112 mmol/L (98-107) H 09/18/18 06:25 Carbon Dioxide 19.0 mmol/L (21.0-32.0) L 09/18/18 06:25 Anion Gap 11 (5-15) 09/18/18 06:25 BUN 6 mg/dL (7-18) L 09/18/18 06:25 Creatinine 0.70 mg/dL (0.55-1.02) 09/18/18 06:25 Est GFR (MDRD) Af Amer 131 mL/min (>60) 09/18/18 06:25 Est GFR (MDRD) Non-Af 108 mL/min (>60) 09/18/18 06:25 BUN/Creatinine Ratio 8.6 RATIO (10-20) L 09/18/18 06:25 Glucose 93 mg/dL (74-106) 09/18/18 06:25 Vancomycin Trough 11.2 ug/mL (5.0-15.0) 09/18/18 06:25 Goal Trough: 10-15 mcg/mL Pharmacy Plan for Drug Dosin hour trough 11.2 mcg/mL. D/W Dr Fall, will adjust goal level to 10-15 mcg/mL and leave dose the same. Recheck per protocol in 4 days. Pharmacy Service will continue to monitor and adjust dosing as required. Follow-Up Labs: Trough Vancomycin - 2/2 @ 0630
[2018-09-18] MEDS: Ondansetron 4 MG/2 ML Vial IV (11:33)
--- NOTE | 2018-09-18 12:20 | PCM.PROGNOTE ---
Patient Problems: Active and Suspected Problems Facial cellulitis (Acute) Sepsis (Acute) Subjective: Continues to have fevers, she does note that her face swelling is beginning to improve. She did however have a slight increase in swelling and pain in the neck and chest. She continues to be tachycardic-sinus tachycardia. No shortness of breath, cough, sinusitis. No discharge. - Physical Exam General: Alert, Oriented x3, Cooperative HEENT: Atraumatic, PERRLA, EOMI, Normocephalic Neck: Supple, No JVD, Negative Carotid Bruits Lungs: Clear to auscultation, Normal air movement Cardiovascular: Regular rate, No murmurs Abdomen: Bowel Sounds Present, Soft, Non Tender Extremities: No edema, Capillary Refill Less than 3 Seconds Skin: No rashes, No breakdown, - - Erythema appears to have slightly increased to the upper chest. Swelling of the face is decreased. vat tender to palpation across the neck and cheek. Positive warmth. No expressible discharge. Musculoskeletal: No Tenderness to Palpation of Joints or Extremities Neurological: Cranial nerves II-XII grossly intact Psych/Mental Status: Normal Affect, Appropriate, Alert and oriented to time, place, person, mood and affect Vital Signs Temp Pulse Resp BP Pulse Ox 99.0 F 120 H 14 105/58 L 99 09/18/18 09:31 09/18/18 11:00 09/18/18 09:31 09/18/18 09:31 09/18/18 09:31 Oxygen Delivery Method Room Air Weight: 223 lb 1.725 oz Body Mass Index (BMI) 33.9 Intake and Output for Last 24 Hours 09/16/18 09/17/18 09/18/18 23:59 23:59 23:59 Intake Total 6155.5 / 6155.5 2197 Output Total 200 / 200 Balance 5955.5 / 5955.5 2197 Laboratory Tests Past 24 Hrs 09/18/18 09/18/18 09/18/18 06:25 06:25 06:25 Sodium 142 Potassium 3.1 L Chloride 112 H Carbon Dioxide 19.0 L Anion Gap 11 BUN 6 L Creatinine 0.70 Estim Creat Clear Calc 125.01 Est GFR (MDRD) Af Amer 131 Est GFR (MDRD) Non-Af 108 BUN/Creatinine Ratio 8.6 L Glucose 93 Calcium 6.8 L Magnesium 1.4 L Vancomycin Trough 11.2 Medical Necessity - Tobacco Use Smoking Status: Current every day smoker Tobacco Use: Cigarettes Assessment/Plan All Active Problems Facial cellulitis (Acute) Sepsis (Acute) 1. Acute sepsis 2/2 facial cellulitis -infectious disease and ENT are following. Persistent fevers, however these are lower, and tachycardia. Continue Vanco and Unasyn per infectious disease. Tachypnea resolved. 2. Nicotine abuse - declines patch 3. Obesity - dietary eval 4. Hypokalemia - replete. Mag is low at 1.4, will provide 4 g IV. Recheck in a.m., check phosphorus. 5. Hx spinal cancer as child, in remission since 2011 s/p surgery and rads, treated by [facility]. DVT ppx: early ambulation DC planning: likely home with family at dc. This patient was seen by Nicholas Quiroz PA-C under the supervision of Doctor Singh
--- NOTE | 2018-09-18 12:24 | PN_ITS ---
Patient Problems: Active and Suspected Problems Facial cellulitis (Acute) Sepsis (Acute) Subjective: Continues to have fevers, she does note that her face swelling is beginning to improve. She did however have a slight increase in swelling and pain in the neck and chest. She continues to be tachycardic-sinus tachycardia. No sh ortness of breath, cough, sinusitis. No discharge. - Physical Exam General: Alert, Oriented x3, Cooperative HEENT: Atraumatic, PERRLA, EOMI, Normocephalic Neck: Supple, No JVD, Negative Carotid Bruits Lungs: Clear to auscultation, Normal air movement Cardiovascular: Regular rate, No murmurs Abdomen: Bowel Sounds Present, Soft, Non Tender Extremities: No edema, Capillary Refill Less than 3 Seconds Skin: No rashes, No breakdown, - - Erythema appears to have slightly increased to the upper chest. Swelling of the face is decreased. mangle tender cloth to palpation across the neck and cheek. Positive warmth. No expressible discharge. Musculoskeletal: No Tenderness to Palpation of Joints or Extremities Neurological: Cranial nerves II-XII grossly intact Psych/Mental Status: Normal Affect, Appropriate, Alert and oriented to time, place, person, mood and affect Vital Signs Temp Pulse Resp BP Pulse Ox 99.0 F 120 H 14 105/58 L 99 09/18/18 09:31 09/18/18 11:00 09/18/18 09:31 09/18/18 09:31 09/18/18 09:31 Oxygen Delivery Method Room Air Weight: 223 lb 1.725 oz Body Mass Index (BMI) 33.9 Intake and Output for Last 24 Hours 09/16/18 09/17/18 09/18/18 23:59 23:59 23:59 Intake Total 6155.5 / 6155.5 2197 Output Total 200 / 200 Balance 5955.5 / 5955.5 2197 Laboratory Tests Past 24 Hrs 09/18/18 09/18/18 09/18/18 06:25 06:25 06:25 Sodium 142 Potassium 3.1 L Chloride 112 H Carbon Dioxide 19.0 L Anion Gap 11 BUN 6 L Creatinine 0.70 Estim Creat Clear Calc 125.01 Est GFR (MDRD) Af Amer 131 Est GFR (MDRD) Non-Af 108 BUN/Creatinine Ratio 8.6 L Glucose 93 Calcium 6.8 L Magnesium 1.4 L Vancomycin Trough 11.2 Medical Necessity - Tobacco Use Smoking Status: Current every day smoker Tobacco Use: Cigarettes Assessment/Plan All Active Problems Facial cellulitis (Acute) Sepsis (Acute) 1. Acute sepsis 2/2 facial cellulitis -infectious disease and ENT are following. Persistent fevers, however these are lower, and tachycardia. Continue Vanco and Unasyn per infectious disease. Tachypnea resolved. 2. Nicotine abuse - declines patch 3. Obesity - dietary eval 4. Hypokalemia - replete. Mag is low at 1.4, will provide 4 g IV. Recheck in a.m., check phosphorus. 5. Hx spinal cancer as child, in remission since 2011 s/p surgery and rads, treated by [facility]. DVT ppx: early ambulation DC planning: likely home with family at dc. This patient was seen by Nicholas Quiroz PA-C under the supervision of Doctor Singh
[2018-09-18] MEDS: Magnesium Sulfate 4gm/100mL 4 GM/100 ML IV.SOLN. IV (13:05)
[2018-09-18 13:13] LABS: Phosphorus 1.1 mg/dL (2.5-4.9)
[2018-09-18] MEDS: Na Biphos/Potassium Phosphate PACKET 1 PACKET PO ×2 (15:25→21:52)
--- NOTE | 2018-09-18 17:11 | PCM.PROGNOTE ---
Patient Problems: Active and Suspected Problems Facial cellulitis (Acute) Sepsis (Acute) Subjective: Patient reports swelling has subsided and swallowing is improved, but still with moderate discomfort. Redness has progressed over upper chest but subsided in the face. Objective: Well appearing with soft erythema over upper chest and back, reduced swelling of left cheek without palpable masses or area of induration. - Physical Exam General: Alert, Oriented x3, Cooperative, No apparent distress HEENT: Atraumatic, PERRLA, EOMI Oral: Dry Mucosa Neck: Supple Lungs: Normal air movement, No rhonchi, No wheeze Skin: - - soft, but wide erythema over upper chest and back extending to anterior neck, blanches with pressure with brisk refill Psych/Mental Status: Alert and oriented to time, place, person, mood and affect Vital Signs Temp Pulse Resp BP Pulse Ox 98.5 F 122 H 18 110/69 99 09/18/18 15:30 09/18/18 15:30 09/18/18 15:30 09/18/18 15:30 09/18/18 15:30 Oxygen Delivery Method Room Air Weight: 101.2 kg Body Mass Index (BMI) 33.9 Intake and Output for Last 24 Hours 09/16/18 09/17/18 09/18/18 23:59 23:59 23:59 Intake Total 6155.5 / 6155.5 3298 / 3298 Output Total 200 / 200 2 / 2 Balance 5955.5 / 5955.5 3296 / 3296 Laboratory Tests Past 24 Hrs 09/18/18 09/18/18 09/18/18 06:25 06:25 06:25 Sodium 142 Potassium 3.1 L Chloride 112 H Carbon Dioxide 19.0 L Anion Gap 11 BUN 6 L Creatinine 0.70 Estim Creat Clear Calc 125.01 Est GFR (MDRD) Af Amer 131 Est GFR (MDRD) Non-Af 108 BUN/Creatinine Ratio 8.6 L Glucose 93 Calcium 6.8 L Phosphorus Magnesium 1.4 L Vancomycin Trough 11.2 09/18/18 06:25 Sodium Potassium Chloride Carbon Dioxide Anion Gap BUN Creatinine Estim Creat Clear Calc Est GFR (MDRD) Af Amer Est GFR (MDRD) Non-Af BUN/Creatinine Ratio Glucose Calcium Phosphorus 1.1 L* Magnesium Vancomycin Trough Medical Necessity - Tobacco Use Smoking Status: Current every day smoker Tobacco Use: Cigarettes Assessment/Plan All Active Problems Facial cellulitis (Acute) Sepsis (Acute) Patient appears to have improved swelling over left face, but area of redness has progressed. The absence of induration seems atypical for infectious cause and other causes may be prudent to consider if WBC count is declining, but this was not done today. I would obtain with tomorrow's labs for evaluation of trend. Consideration of red man syndrome from Vancomycin is considered but will defer to ID. I see no need for surgical intervention as no apparent abscess formation is noted, nor any crepitice to suggest air forming organisms, but serial follow-up is warranted until redness ans swelling is resolved. Cultures remain negative to date.
[2018-09-18 21:34] LABS: M R Staph aureus DNA By PCR Negative (Negative); Probe Check PASS; Specimen Processing Control PASS
[2018-09-18] MEDS: 0.9% NaCl Peripheral Flush Adult/Peds IV (21:51)
[2018-09-19] VITALS (8 sets, daily range): BP systolic 92–114; BP diastolic 59–78; PULSE 85–109; RESP 14–26; TEMP 36.7–37.6; O2SAT 95–100
[2018-09-19] MEDS: oxyCODONE 5 MG Tablet PO ×4 (04:45→20:22)
[2018-09-19 06:55] LABS: Absolute Lymphocyte Count 0.44 X10^3/ul (0.83-4.51); Absolute Neutrophil Count 6.5 X10^3/uL (2.0-7.7); Basophil# 0.01 X10^3/uL; Basophil% 0.1 % (0-1); Eosinophil# 0.14 X10^3/uL; Eosinophils% 1.9 % (0-5); Hematocrit 32.9 % (37-47); Hemoglobin 10.4 g/dl (12.0-15.0); Lymphocyte # 0.44 X10^3/ul (4.0); Lymphocyte % 5.9 % (19-41); Mean Corp Hgb Conc 31.6 g/gl (32-36); Mean Corpuscular Hgb 27.5 pg (27.0-32.0); Mean Platelet Vol. 11.7 fl (6.2-12.0); Monocyte# 0.31 X10^3/uL; Monocyte% 4.1 % (0-10); Neutrophil # 6.53 X10^3/uL (2.7-7.7); Neutrophil % 87.5 % (47-70); Platelet Count 111 K/mm3 (150-450); RBC Distribution Width CV 14.6 % (11.6-14.6); Red Blood Count 3.78 M/mm3 (4.2-5.4); White Blood Count 7.5 K/mm3 (4.4-11.0)
[2018-09-19 06:59] LABS: Differential Indicated SCAN CRITERIA MET; POSITIVE COUNT NO; POSITIVE DIFFERENTIAL YES; POSITIVE MORPHOLOGY NO
[2018-09-19 07:45] LABS: Anion Gap 7 (5-15); BUN 4 mg/dL (7-18); BUN/Creat Ratio 7.1 RATIO (10-20); Calcium,Total 7.4 mg/dL (8.5-10.1); Chloride 112 mmol/L (98-107); Creatinine, Serum 0.57 mg/dL (0.55-1.02); EST Glomerular Filtration Rate 139 mL/min (>60); Est Glom Filt Rate - Afr Amer 168 mL/min (>60); Estimated Creatinine Clearance 153.52 ml/min; Glucose 124 mg/dL (74-106); Magnesium 2.1 mg/dL (1.6-2.6); Phosphorus 0.9 mg/dL (2.5-4.9); Potassium 3.6 mmol/L (3.5-5.1); Sodium Level 141 mmol/L (136-145)
[2018-09-19] MEDS: Acetaminophen 325 MG Tablet 650 MG PO ×2 (08:20→14:21)
[2018-09-19] MEDS: Na Biphos/Potassium Phosphate PACKET 1 PACKET PO ×4 (08:20→21:49)
[2018-09-19] MEDS: 0.9% Normal Saline 1,000 ML 100 ML IV ×2 (08:21→18:02)
--- NOTE | 2018-09-19 13:38 | PCM.PROGNOTE ---
Patient Problems: Active and Suspected Problems Facial cellulitis (Acute) Sepsis (Acute) Subjective: Chills overnight again. Low grade fever. Neck erythema not improved. Still pruritic. Facial swelling and erythema improved. - Physical Exam General: Alert, Oriented x3, Cooperative HEENT: Atraumatic, PERRLA, EOMI, Normocephalic Neck: Supple, No JVD, Negative Carotid Bruits Lungs: Clear to auscultation, Normal air movement Cardiovascular: No murmurs, Tachycardic Abdomen: Bowel Sounds Present, Soft, Non Tender Extremities: No edema, Capillary Refill Less than 3 Seconds Skin: - - rash on neck no improvement. facial erythema and swelling improved. Musculoskeletal: No Tenderness to Palpation of Joints or Extremities Neurological: Cranial nerves II-XII grossly intact Psych/Mental Status: Normal Affect, Appropriate, Alert and oriented to time, place, person, mood and affect Vital Signs Temp Pulse Resp BP Pulse Ox 99.7 F H 98 14 109/70 100 09/19/18 10:00 09/19/18 10:00 09/19/18 10:00 09/19/18 10:09/19/18 10:00 Oxygen Delivery Method Room Air Weight: 223 lb 1.725 oz Body Mass Index (BMI) 33.9 Intake and Output for Last 24 Hours 09/17/18 09/18/18 09/19/18 23:59 23:59 23:59 Intake Total 6155.5 / 6155.5 5708.1 / 5708.1 2296 / 2296 Output Total 200 / 200 2 / 2 Balance 5955.5 / 5955.5 5706.1 / 5706.1 2296 / 2296 Microbiology Past 72 Hours 09/17/18 06:40 Blood Culture - Preliminary Blood Culture (Wb) - Left Hand No growth in 48 hours. 09/17/18 06:55 Blood Culture - Preliminary Blood Culture (Wb) - Right Hand No growth in 48 hours. Laboratory Tests Past 24 Hrs 09/18/18 09/19/18 09/19/18 18:30 06:10 06:10 WBC 7.5 RBC 3.78 L Hgb 10.4 L Hct 32.9 L MCV 87.0 MCH 27.5 MCHC 31.6 L RDW 14.6 RDW Differential 45.0 H Plt Count 111 L MPV 11.7 Immature Gran % (Auto) 0.500 Neut % (Auto) 87.5 H Lymph % (Auto) 5.9 L Loving % (Auto) 4.1 Eos % (Auto) 1.9 Baso % (Auto) 0.1 Absolute Neuts (auto) 6.5 Absolute Lymphs (auto) 0.44 L Total Counted Not Reportable Sodium 141 Potassium 3.6 Chloride 112 H Carbon Dioxide 22.0 Anion Gap 7 BUN 4 L Creatinine 0.57 Estim Creat Clear Calc 153.52 Est GFR (MDRD) Af Amer 168 Est GFR (MDRD) Non-Af 139 BUN/Creatinine Ratio 7.1 L Glucose 124 H Calcium 7.4 L Phosphorus 0.9 L* Magnesium 2.1 MRSA (PCR) Negative Medical Necessity - Tobacco Use Smoking Status: Current every day smoker Tobacco Use: Cigarettes Assessment/Plan All Active Problems Facial cellulitis (Acute) Sepsis (Acute) 1. Acute sepsis 2/2 facial cellulitis -infectious disease and ENT are following. Improving. Vanco DCd for itchy erythematous rash. Facial swelling and erythema improved. Leukocytosis resolved. Hgb did decline 3 grams, will recheck in AM, no sign of bleeding. Blood cultures negative. 2. Nicotine abuse - declines patch 3. Obesity - dietary eval 4. Hypokalemia and hypomagnesemia resolved. Continue to replete and recheck phos. 5. Hx spinal cancer as child, in remission since 2012 s/p surgery and rads, treated by [facility] DVT ppx: early ambulation DC planning: likely home with family at [place]. This patient was seen by Nicholas Quiroz PA-C under the supervision of Doctor Singh
--- NOTE | 2018-09-19 13:41 | PN_ITS ---
Patient Problems: Active and Suspected Problems Facial cellulitis (Acute) Sepsis (Acute) Subjective: Chills overnight again. Low grade fever. Neck erythema not improved. Still pruritic. Facial swelling and erythema improved. - Physical Exam General: Alert, Oriented x3, Cooperative HEENT: Atraumatic, PERRLA, EOMI, Normocephalic Neck: Supple, No JVD, Negative Carotid Bruits Lungs: Clear to auscultation, Normal air movement Cardiovascular: No murmurs, Tachycardic Abdomen: Bowel Sounds Present, Soft, Non Tender Extremities: No edema, Capillary Refill Less than 3 Seconds Skin: - - rash on neck no improvement. facial erythema and swelling improved. Musculoskeletal: No Tenderness to Palpation of Joints or Extremities Neurological: Cranial nerves II-XII grossly intact Psych/Mental Status: Normal Affect, Appropriate, Alert and oriented to time, place, person, mood and affect Vital Signs Temp Pulse Resp BP Pulse Ox 99.7 F H 98 14 109/70 100 09/19/18 10:00 09/19/18 10:00 09/19/18 10:00 09/19/18 10:09/19/18 10:00 Oxygen Delivery Method Room Air Weight: 223 lb 1.725 oz Body Mass Index (BMI) 33.9 Intake and Output for Last 24 Hours 09/17/18 09/18/18 09/19/18 23:59 23:59 23:59 Intake Total 6155.5 / 6155.5 5708.1 / 5708.1 2296 / 2296 Output Total 200 / 200 2 / 2 Balance 5955.5 / 5955.5 5706.1 / 5706.1 2296 / 2296 Microbiology Past 72 Hours 09/17/18 06:40 Blood Culture - Preliminary Blood Culture (Wb) - Left Hand No growth in 48 hours. 09/17/18 06:55 Blood Culture - Preliminary Blood Culture (Wb) - Right Hand No growth in 48 hours. Laboratory Tests Past 24 Hrs 09/18/18 09/19/18 09/19/18 18:30 06:10 06:10 WBC 7.5 RBC 3.78 L Hgb 10.4 L Hct 32.9 L MCV 87.0 MCH 27.5 MCHC 31.6 L RDW 14.6 RDW Differential 45.0 H Plt Count 111 L MPV 11.7 Immature Gran % (Auto) 0.500 Neut % (Auto) 87.5 H Lymph % (Auto) 5.9 L [place] % (Auto) 4.1 Eos % (Auto) 1.9 Baso % (Auto) 0.1 Absolute Neuts (auto) 6.5 Absolute Lymphs (auto) 0.44 L Total Counted Not Reportable Sodium 141 Potassium 3.6 Chloride 112 H Carbon Dioxide 22.0 Anion Gap 7 BUN 4 L Creatinine 0.57 Estim Creat Clear Calc 153.52 Est GFR (MDRD) Af Amer 168 Est GFR (MDRD) Non-Af 139 BUN/Creatinine Ratio 7.1 L Glucose 124 H Calcium 7.4 L Phosphorus 0.9 L* Magnesium 2.1 MRSA (PCR) Negative Medical Necessity - Tobacco Use Smoking Status: Current every day smoker Tobacco Use: Cigarettes Assessment/Plan All Active Problems Facial cellulitis (Acute) Sepsis (Acute) 1. Acute sepsis 2/2 facial cellulitis -infectious disease and ENT are following. Improving. Vanco DCd for itchy erythematous rash. Facial swelling and erythema improved. Leukocytosis resolved. Hgb did decline 3 grams, will recheck in AM, no sign of bleeding. Blood cultures negative. 2. Nicotine abuse - declines patch 3. Obesity - dietary eval 4. Hypokalemia and hypomagnesemia resolved. Continue to replete and recheck phos. 5. Hx spinal cancer as child, in remission since 2012 s/p surgery and rads, treated by [facility] DVT ppx: early ambulation DC planning: likely home with family at ok. This patient was seen by Nicholas Quiroz PA-C under the supervision of Doctor Singh
--- NOTE | 2018-09-19 14:12 | PN.ID_ITS ---
Patient Problems: Active and Suspected Problems Facial cellulitis (Acute) Sepsis (Acute) Subjective: Feeling better. Vanc stopped, redness and itching slightly improved. Jaw better, face less swollen. No fever. - Physical Exam General: Alert, Cooperative, No apparent distress Lungs: Clear to auscultation, Normal air movement Cardiovascular: Regular rate, Regular Rhythm Abdomen: Soft, Non Tender, Non-Distended Skin: - - Improved redness and swelling around jaw; chin with mild induration. Redness improved on chest and torso. Vital Signs Temp Pulse Resp BP Pulse Ox 99.7 F H 98 14 109/70 100 09/19/18 10:00 09/19/18 10:00 09/19/18 10:00 09/19/18 10:00 09/19/18 10:00 Oxygen Delivery Method Room Air Weight: 101.2 kg Body Mass Index (BMI) 33.9 Intake and Output for Last 24 Hours 09/17/18 09/18/18 09/19/18 23:59 23:59 23:59 Intake Total 6155.5 / 6155.5 5708.1 / 5708.1 2296 / 2296 Output Total 200 / 200 2 / 2 Balance 5955.5 / 5955.5 5706.1 / 5706.1 2296 / 2296 Microbiology Past 72 Hours 09/17/18 06:40 Blood Culture - Preliminary Blood Culture (Wb) - Left Hand No growth in 48 hours. 09/17/18 06:55 Blood Culture - Preliminary Blood Culture (Wb) - Right Hand No growth in 48 hours. Laboratory Tests Past 24 Hrs 09/18/18 09/19/18 09/19/18 18:30 06:10 06:10 WBC 7.5 RBC 3.78 L Hgb 10.4 L Hct 32.9 L MCV 87.0 MCH 27.5 MCHC 31.6 L RDW 14.6 RDW Differential 45.0 H Plt Count 111 L MPV 11.7 Immature Gran % (Auto) 0.500 Neut % (Auto) 87.5 H Lymph % (Auto) 5.9 L [place] % (Auto) 4.1 Eos % (Auto) 1.9 Baso % (Auto) 0.1 Absolute Neuts (auto) 6.5 Absolute Lymphs (auto) 0.44 L Total Counted Not Reportable Sodium 141 Potassium 3.6 Chloride 112 H Carbon Dioxide 22.0 Anion Gap 7 BUN 4 L Creatinine 0.57 Estim Creat Clear Calc 153.52 Est GFR (MDRD) Af Amer 168 Est GFR (MDRD) Non-Af 139 BUN/Creatinine Ratio 7.1 L Glucose 124 H Calcium 7.4 L Phosphorus 0.9 L* Magnesium 2.1 MRSA (PCR) Negative Medical Necessity - Tobacco Use Smoking Status: Current every day smoker Tobacco Use: Cigarettes Route of nutrition/ use of supplements: [] Nutritional Intake: [] IV Site: [] Peraza Catheter: [] - Assessment/Plan Antibiotics: [] Assessment/Plan: [] Active and Suspected Problems Facial cellulitis (Acute) Sepsis (Acute) sepsis due to facial cellulitis - much more improvement, bcx neg so far, continue unasyn. Plan on home on augmentin for 5 more days. allergic reaction - rash and itching on chest may be due to vanc. Improving now that vanc stopped. Will follow
[2018-09-19] MEDS: Calcium Carbonate 500 MG Tablet 1000 MG PO (19:27)
[2018-09-19] MEDS: Ondansetron ODT 4 MG Tablet PO (21:58)
[2018-09-20] MEDS: oxyCODONE 5 MG Tablet PO ×3 (01:03→10:07)
[2018-09-20 02:20] VITALS: BP 114/66; PULSE 80; RESP 16; TEMP 36.9; O2SAT 96
[2018-09-20] MEDS: Acetaminophen 325 MG Tablet 650 MG PO ×2 (04:01→10:07)
[2018-09-20] MEDS: 0.9% Normal Saline 1,000 ML 100 ML IV (04:14)
[2018-09-20] MEDS: Ondansetron 4 MG/2 ML Vial IV (04:20)
[2018-09-20] MEDS: 0.9% NaCl Peripheral Flush Adult/Peds IV (04:20)
[2018-09-20 04:34] VITALS: TEMP 37.2
[2018-09-20 06:38] LABS: Absolute Lymphocyte Count 0.73 X10^3/ul (0.83-4.51); Basophil# 0.01 X10^3/uL; Basophil% 0.2 % (0-1); Eosinophil# 0.08 X10^3/uL; Eosinophils% 1.5 % (0-5); Hematocrit 31.6 % (37-47); Hemoglobin 10.2 g/dl (12.0-15.0); Lymphocyte # 0.73 X10^3/ul (4.0); Lymphocyte % 13.8 % (19-41); Mean Corp Hgb Conc 32.3 g/gl (32-36); Mean Corpuscular Volume 86.8 fL (81-99); Mean Platelet Vol. 11.2 fl (6.2-12.0); Monocyte# 0.44 X10^3/uL; Monocyte% 8.3 % (0-10); Neutrophil # 4.02 X10^3/uL (2.7-7.7); Neutrophil % 75.8 % (47-70); Platelet Count 133 K/mm3 (150-450); RBC Distribution Width CV 14.4 % (11.6-14.6); RBC Distribution Width SD 44.3 fl (35.1-43.9); Red Blood Count 3.64 M/mm3 (4.2-5.4); White Blood Count 5.3 K/mm3 (4.4-11.0)
[2018-09-20 06:51] LABS: POSITIVE COUNT NO; POSITIVE DIFFERENTIAL NO; POSITIVE MORPHOLOGY NO
[2018-09-20 06:58] LABS: Phosphorus 2.7 mg/dL (2.5-4.9)
[2018-09-20 08:35] VITALS: BP 105/72; PULSE 67; RESP 16; TEMP 37.1; O2SAT 95
[2018-09-20] MEDS: Na Biphos/Potassium Phosphate PACKET 1 PACKET PO (08:39)
--- NOTE | 2018-09-20 10:57 | PCM.PN.ID ---
Patient Problems: Active and Suspected Problems Facial cellulitis (Acute) Sepsis (Acute) Subjective: Feeling better, redness improved, no fever, jaw pain improved. - Physical Exam General: Alert, Cooperative, No apparent distress Lungs: Clear to auscultation, Normal air movement Cardiovascular: Regular rate, Regular Rhythm Abdomen: Soft, Non Tender, Non-Distended Skin: - - rash and swelling improved on face and chest. Small area of induration on chin. Vital Signs Temp Pulse Resp BP Pulse Ox 98.8 F 67 16 105/72 95 09/20/18 08:35 09/20/18 08:35 09/20/18 08:35 09/20/18 08:35 09/20/18 08:35 Oxygen Delivery Method Room Air Weight: 101.2 kg Body Mass Index (BMI) 33.9 Intake and Output for Last 24 Hours 09/18/18 09/19/18 09/20/18 23:59 23:59 23:59 Intake Total 5708.1 / 5708.1 4363 / 4363 796 / 796 Output Total 2 / 2 Balance 5706.1 / 5706.1 4363 / 4363 796 / 796 Microbiology Past 72 Hours 09/17/18 06:40 Blood Culture - Preliminary Blood Culture (Wb) - Left Hand No growth in 48 hours. 09/17/18 06:55 Blood Culture - Preliminary Blood Culture (Wb) - Right Hand No growth in 48 hours. Laboratory Tests Past 24 Hrs 09/20/18 09/20/18 06:25 06:25 WBC 5.3 RBC 3.64 L Hgb 10.2 L Hct 31.6 L MCV 86.8 MCH 28.0 MCHC 32.3 RDW 14.4 RDW Differential 44.3 H Plt Count 133 L MPV 11.2 Immature Gran % (Auto) 0.400 Neut % (Auto) 75.8 H Lymph % (Auto) 13.8 L [place] % (Auto) 8.3 Eos % (Auto) 1.5 Baso % (Auto) 0.2 Absolute Neuts (auto) 4.0 Absolute Lymphs (auto) 0.73 L Total Counted Not Reportable Phosphorus 2.7 Medical Necessity - Tobacco Use Smoking Status: Current every day smoker Tobacco Use: Cigarettes Route of nutrition/ use of supplements: [] Nutritional Intake: [] IV Site: [] Peraza Catheter: [] - Assessment/Plan Antibiotics: [] Assessment/Plan: [] Active and Suspected Problems Facial cellulitis (Acute) Sepsis (Acute) sepsis due to facial cellulitis - much more improvement, bcx neg so far, continue unasyn. Plan on home on augmentin for 5 more days. allergic reaction - rash and itching on chest may be due to vanc. Improving now that vanc stopped. Will follow
--- NOTE | 2018-09-20 11:39 | DCINST_ITS ---
- Discharge Diagnoses Current Active Problems: Current Active and Chronic Problems Facial cellulitis (Acute) Sepsis (Acute) Obesity (Chronic) Nicotine abuse (Chronic) You will use the following diet at home:: No restrictions Your food should be the consistency of: Regular Your liquids should be the consistency of: Regular/Thin Discharge Activity: Return to Normal Activity Allergies/Adverse Reactions: Allergies azithromycin [From Zithromax] Allergy (Verified 09/17/18 06:32) Unknown diphenhydramine HCl [From Benadryl] Allergy (Verified 09/17/18 06:32) Unknown Medications to take at Discharge Amoxicillin/Potassium Clav [Augmentin 875-125 Tablet] 1 each PO BID #10 tablet 09/20/18 Oxycodone [Oxyir] 5 mg PO Q6H PRN PRN 2 Days #8 tablet 09/20/18 The following prescriptions were given: Amoxicillin/Potassium Clav [Augmentin 875-125 Tablet] 1 each PO BID #10 tablet Oxycodone [Oxyir] 5 mg PO Q6H PRN PRN 2 Days #8 tablet PRN Reason: Mod-Severe Pain (4-10/10) Primary Care Physician: Josiah Abdi III, MD [Primary Care Provider] - Please follow up with your Primary Care Physician in: 1-2 weeks Test Results: Test results from this visit will be discussed in further detail at your follow- up appointment, if applicable. Proposed Discharge Date: 09/20/18
--- NOTE | 2018-09-20 13:05 | DS.PCM_ITS ---
Discharge Date and Diagnosis - Problem List Patient Problems: Active and Suspected Problems Facial cellulitis (Acute) Sepsis (Acute) Date of Admission: 09/17/18 Date of Discharge: 09/20/18 - Primary Discharge Diagnosis Active and Suspected Problems Acute sepsis secondary to facial cellulitis Drug reaction-vancomycin Hypokalemia normocytic anemia Hypophosphatemia Hypomagnesemia Obesity History of pediatric spinal cancer in remission status post resection and chemotherapy. Nicotine abuse - Secondary Discharge Diagnosis Chronic Problems Obesity (Chronic) Nicotine abuse (Chronic) Hospital Course and Treatment Imaging Results: CT/Soft Tissue Neck WITH Contrast IMPRESSION: 1. There is a soft tissue edema and nonspecific fluid in the left customer services supervisor space, left submandibular space and left face apparently related to acute infection. The source is unclear from this CT. There is no evidence for abscess. 2. Cervical lymphadenopathy, possibly reactive. Neoplastic etiologies are not excluded. Consults: ID - Juan David ENT - [facility] Operations: None Procedures: None Summary of Care Provided: Hospital Course: The patient is a 22 year old F with past medical history as above who presented to the emergency room with swelling of the left side of her face markedly over her lower cheek and chin. This began several days prior after she popped a zit on her face. She has had significant pain, swelling, warmth of her face and neck. She is found to be septic in the emergency room with elevated white count, tachycardia, fever. She is placed on Vanco and Zosyn and admitted to the PCU. On presentation she had muffled voice and difficulty fully opening her jaw. Infectious disease and ENT were consulted. The patient appeared to have an increased rash across her chest with pruritus which was felt to be secondary to the addition of vancomycin. This was discontinued. She gradually improved on IV antibiotics. There is no expressible discharge culture. She was transitioned to Augmentin for 5 more days as per infectious disease recommendation. Her white count resolved, her tachycardia resolved, fever resolved. Also during her stay she had significant hypokalemia, hypomagnesemia, hypophosphatemia. He did and normalized. She will need to follow-up with her PCP in 1-2 weeks. This patient was seen by Nicholas Quiroz PA-C under the supervision of Doctor Singh. [] Patient Problems: Active and Suspected Problems Facial cellulitis (Acute) Sepsis (Acute) - Physical Exam General: Alert, Oriented x3, Cooperative HEENT: Atraumatic, PERRLA, EOMI, Normocephalic Neck: Supple, No JVD, Negative Carotid Bruits Lungs: Clear to auscultation, Normal air movement Cardiovascular: Regular rate, No murmurs Abdomen: Bowel Sounds Present, Soft, Non Tender Extremities: No edema, Capillary Refill Less than 3 Seconds Skin: No rashes, No breakdown, - - erythema over the left lower face. erythema over the chest. warmth improved. Musculoskeletal: No Tenderness to Palpation of Joints or Extremities Neurological: Cranial nerves II-XII grossly intact Psych/Mental Status: Normal Affect, Appropriate, Alert and oriented to time, place, person, mood and affect Vital Signs Temp Pulse Resp BP Pulse Ox 98.8 F 67 16 105/72 95 09/20/18 08:35 09/20/18 08:35 09/20/18 08:35 09/20/18 08:35 09/20/18 08:35 Oxygen Delivery Method Room Air Weight: 223 lb 1.725 oz Body Mass Index (BMI) 33.9 Intake and Output for Last 24 Hours 09/18/18 09/19/18 09/20/18 23:59 23:59 23:59 Intake Total 5708.1 / 5708.1 4363 / 4363 796 / 796 Output Total 2 / 2 Balance 5706.1 / 5706.1 4363 / 4363 796 / 796 Microbiology Past 72 Hours 09/17/18 06:40 Blood Culture - Preliminary Blood Culture (Wb) - Left Hand No growth in 48 hours. 09/17/18 06:55 Blood Culture - Preliminary Blood Culture (Wb) - Right Hand No growth in 48 hours. Laboratory Tests Past 24 Hrs 09/20/18 09/20/18 06:25 06:25 WBC 5.3 RBC 3.64 L Hgb 10.2 L Hct 31.6 L MCV 86.8 MCH 28.0 MCHC 32.3 RDW 14.4 RDW Differential 44.3 H Plt Count 133 L MPV 11.2 Immature Gran % (Auto) 0.400 Neut % (Auto) 75.8 H Lymph % (Auto) 13.8 L [place] % (Auto) 8.3 Eos % (Auto) 1.5 Baso % (Auto) 0.2 Absolute Neuts (auto) 4.0 Absolute Lymphs (auto) 0.73 L Total Counted Not Reportable Phosphorus 2.7 Discharge Diet: No Restrictions Discharge Activity: Return to Normal Activity Home Medications: Medications to take at Discharge Amoxicillin/Potassium Clav [Augmentin 875-125 Tablet] 1 each PO BID #10 tablet 09/20/18 Oxycodone [Oxyir] 5 mg PO Q6H PRN PRN 2 Days #8 tablet 09/20/18 Following Prescrptions Were Given to Patient: Amoxicillin/Potassium Clav [Augmentin 875-125 Tablet] 1 each PO BID #10 tablet Oxycodone [Oxyir] 5 mg PO Q6H PRN PRN 2 Days #8 tablet PRN Reason: Mod-Severe Pain (-05/30) Primary Care Physician: Josiah Abdi III, MD [Primary Care Provider] - Please follow up with your Primary Care Physician in: 1-2 weeks Disposition: Home Minutes spent on discharge:: 35 Patient Condition:: Stable Medical Necessity - Tobacco Use Smoking Status: Current every day smoker Tobacco Use: Cigarettes Meaningful Use Info Meaningful Use Diagnoses (Choose all that apply): None applicable
[2018-09-20 13:27] VITALS: BP 107/62; PULSE 60; RESP 18; TEMP 36.7; O2SAT 97
--- NOTE | 2018-09-20 14:05 | PHA.DC.COU ---
Pharmacy Services has performed discharge medication counseling for this patient. The patient was counseled on the following discharge medications and changes in medications for homegoing review. 1. AUGMENTIN The Reason for Use, instructions for use, and potential side effects were reviewed for all new medications. The patient's questions regarding all of their medications were answered. The patient was able to verbally demonstrate an understanding of their discharge medications.
== END 2018-09-20 15:00 | disposition home or self-care (01) | DRG 720 ==
LOC: ED 06:49 → PCU 08:05
PROVIDERS: Physician Assistant; Admitting Provider Internal Medicine; Emergency Provider Emergency Medicine; Family Provider Family Medicine; PCP Family Medicine; Visit Provider Internal Medicine
DX: A41.9 Sepsis, unspecified organism (principal); L03.211 Cellulitis of face; F17.210 Nicotine dependence, cigarettes, uncomplicated; E87.6 Hypokalemia; E83.42 Hypomagnesemia; L27.0 Generalized skin eruption due to drugs and medicaments taken internally; T36.8X5A Adverse effect of other systemic antibiotics, initial encounter; Y92.230 Patient room in hospital as the place of occurrence of the external cause; Z68.33 Body mass index [BMI] 33.0-33.9, adult; Z85.89 Personal history of malignant neoplasm of other organs and systems; E66.9 Obesity, unspecified
CPT/HCPCS: 36415; 70491; 80048; 80076; 80202; 83605; 83735; 84100; 85025; 87040; 87641; 93005; 97161; 97166; 97802; 99285; 99406; J7030; J7040; J7050; Q9967; A4216; J0295; J2405

== ENCOUNTER 2018-09-22 08:39 | Emergency (ER) | payer MEDICAID, SELFPAY ==
[2018-09-17 08:27] VITALS: BMI 33.9
[2018-09-22 08:40] VITALS: BP 116/82; PULSE 54; RESP 16; TEMP 36.6; O2SAT 97; BMI 33.4
--- NOTE | 2018-09-22 09:00 | EKG12_ITS ---
Test Reason : CHEST PAIN Blood Pressure : / mmHG Vent. Rate : 053 BPM Atrial Rate : 053 BPM P-R Int : 114 ms QRS Dur : 088 ms QT Int : 462 ms P-R-T Axes : 058 030 036 degrees QTc Int : 433 ms Sinus bradycardia with sinus arrhythmia Otherwise normal ECG Confirmed by FLORENCE ROWE, MAGGI ([id number]), senior technical editor DEANDRE BERUMEN ([id number] on 09/26/2018 1:28:56 PM Referred By: VIVI Confirmed By:MAGGI HENRIQUEZ MD
[2018-09-22 09:21] LABS: Basophil# 0.02 X10^3/uL; Basophil% 0.4 % (0-1); Eosinophil# 0.06 X10^3/uL; Eosinophils% 1.3 % (0-5); Hemoglobin 11.8 g/dl (12.0-15.0); Lymphocyte % 23.7 % (19-41); Mean Corp Hgb Conc 32.8 g/gl (32-36); Mean Corpuscular Hgb 27.6 pg (27.0-32.0); Mean Corpuscular Volume 84.3 fL (81-99); Mean Platelet Vol. 10.9 fl (6.2-12.0); Monocyte# 0.46 X10^3/uL; Monocyte% 9.9 % (0-10); Neutrophil # 2.95 X10^3/uL (2.7-7.7); Neutrophil % 63.4 % (47-70); Platelet Count 215 K/mm3 (150-450); RBC Distribution Width CV 14.2 % (11.6-14.6); RBC Distribution Width SD 43.5 fl (35.1-43.9); Red Blood Count 4.27 M/mm3 (4.2-5.4); White Blood Count 4.7 K/mm3 (4.4-11.0)
[2018-09-22 09:22] LABS: POSITIVE COUNT NO; POSITIVE DIFFERENTIAL NO; POSITIVE MORPHOLOGY NO
[2018-09-22] MEDS: 0.9% Normal Saline 1,000 ML 150 ML IV (09:23)
--- NOTE | 2018-09-22 09:26 | RAD_ITS ---
STUDY: X-RAY CHEST REASON FOR EXAM: Female, 22 years old. Dyspnea TECHNIQUE: PA and lateral views of the chest. COMPARISON: None. FINDINGS: EKG leads project over the chest. The lungs are clear and expanded. There is no demonstrated pleural abnormality. Normal size heart. Normal mediastinum and howard. Normal visualized pulmonary arteries. Normal visualized aortic arch and descending thoracic aorta. Normal visualized thoracic spine. Normal visualized ribs, clavicles, and shoulders. There is no demonstrated abnormality of the visualized soft tissue structures of the upper abdomen. RAD/Chest PA and Lateral IMPRESSION: Normal x-ray examination of the chest. Electronically Signed: Riki Ratliff MD at 9:42 EST , Service support ,
[2018-09-22 09:28] LABS: Anion Gap 9 (5-15); BUN 3 mg/dL (7-18); BUN/Creat Ratio 5.5 RATIO (10-20); Calcium,Total 8.2 mg/dL (8.5-10.1); Chloride 110 mmol/L (98-107); Creatinine, Serum 0.54 mg/dL (0.55-1.02); EST Glomerular Filtration Rate 146 mL/min (>60); Est Glom Filt Rate - Afr Amer 177 mL/min (>60); Estimated Creatinine Clearance 162.05 ml/min; Glucose 90 mg/dL (74-106); Potassium 3.4 mmol/L (3.5-5.1); Sodium Level 143 mmol/L (136-145)
[2018-09-22 09:37] VITALS: BP 114/88; PULSE 52; RESP 15; TEMP 36.8; O2SAT 96
[2018-09-22 09:40] LABS: D-Dimer Quantitative (DVT/PE) 4.28 FEU/ug/m (0.27-0.49)
--- NOTE | 2018-09-22 09:52 | CT_ITS ---
STUDY: CTA CHEST REASON FOR EXAM: Female, 22 years old. Chest pain, history of thoracic spine surgery for cancer RADIATION DOSAGE (If Supplied By Facility): CTDIvol = ( 18.38 ) mGy, DLP = ( 727.65 ) mGycm TECHNIQUE: The examination was performed with the intravenous administration of 100 ml of Isovue 370 contrast material. Post-processing of the angiographic images was performed, with multiplanar reformation and 3D reconstruction. Individualized dose optimization techniques were used for this CT. COMPARISON: None. FINDINGS: Normal enhancement of the main pulmonary artery and right and left pulmonary arteries. Normal enhancement of the bilateral peripheral pulmonary arteries. There is no demonstrated pulmonary embolism. Normal thoracic aorta and visualized great vessels. There is no demonstrated aortic dissection. Normal heart and pericardium. Normal mediastinum. Normal hilar regions. Normal visualized trachea and bronchi. The lungs are well expanded. Normal pulmonary parenchyma. Small volume bilateral pleural effusions. Normal chest wall structures. Operative hardware of posterior thoracolumbar spine identified (spinous processes), very mild degenerative changes of the thoracic spine. No lytic or sclerotic bone lesion. Although not fully visualized, the right kidney appears to be severely atrophic (versus ptotic). Adjacent to the pancreatic head on the first image, there is slight mesenteric induration and fullness of the pancreatic head/body, however, the pancreas is not well visualized. There are small lymph nodes of the upper abdomen. CT/CTA Chest W/WO Contrast IMPRESSION: 1. No central or segmental pulmonary embolism. 2. Mild peripancreatic inflammation and upper abdominal lymph nodes (only partially visualized on the first image) suggests possibility of pancreatitis. Correlation with laboratory values is suggested. 3. Small bilateral pleural effusions. 4. Suspect severe right renal atrophy (incompletely imaged). Electronically Signed: Riki Ratliff MD at 10:26 EST , Service support ,
[2018-09-22 10:00] VITALS: BP 123/87; PULSE 47; RESP 16; TEMP 36.3; O2SAT 94
[2018-09-22 11:00] VITALS: BP 126/87; PULSE 54; RESP 16; TEMP 36.3; O2SAT 98
[2018-09-22 11:58] LABS: Lipase 133 U/L (73-393)
--- NOTE | 2018-09-22 12:24 | ED.VISSUMM ---
- ER Visit Summary Date of Service: 09/22/18 Chief Complaint: [Shortness of breath] History of Present Illness: The patient is a 22 F [presents to the emergency department with complaint of shortness of breath started about a week ago. Patient states she was discharged from the hospital 2 days ago after being admitted for facial cellulitis. Patient had a little bit of a dry cough. She continues to be on antibiotics. This morning patient felt very short of breath and felt like there was a weight on her chest and comes in for evaluation. Mother feels like may be is her anxiety acting up. Patient does have a history of anxiety but is currently not taking any medication. She denies recent travel or surgery.] Physical Examination: HEENT-PERRLA, EOMI. Cranial nerves II through XII grossly intact. TMs clear. Mucous membranes moist. No adenopathy. Cardiovascular-regular rate and rhythm without murmur or ectopy Lungs-clear to auscultation, chest wall stable without crepitus or subcu emphysema Abdomen-normoactive bowel sounds, soft, mild epigastric tenderness on palpation, no rebound or rigidity, no peritoneal signs. Extremities-intact ?4, normal range of motion, normal pulses, atraumatic] Test Results: [CBC with differential obtained showed a white blood cell count of 4.7, hemoglobin 11.8, hematocrit 36, placed 215. Chemistries unremarkable. D-dimer was elevated 4.[address] of the chest was obtained which showed no evidence of PEs. Patient had small bilateral effusions. Patient was noted to have some mild inflammation around the head of the pancreas there is some concern for pancreatitis however her lipase was normal at 133.] EKG obtained on arrival showed a sinus rhythm with a ventricular rate of 53 bpm with no acute I segment changes. Emergency Department Course and Treatment: [Patient was not given any treatment in the emergency department and her dyspnea essentially resolved. She is been ambulatory to the bathroom and back without difficulty.] Treatment Plan: [Patient will be given a prescription for Ativan as needed for anxiety] Disposition: [Discharged home in stable condition] Impression: [Dyspnea-etiology uncertain Anxiety] This note was generated with [employer] software. It may contain incorrect words, spelling, and punctuation that were not noted in review of the chart prior to signing ED Disposition - Plan for ED Patient: Referrals: Josiah Abdi III, MD [Primary Care Provider] -
--- NOTE | 2018-09-22 12:27 | ED.DCSUM_ITS ---
- ER Visit Summary Date of Service: 09/22/18 Chief Complaint: [Shortness of breath] History of Present Illness: The patient is a 22 F [presents to the emergency department with complaint of shortness of breath started about a week ago. Patient states she was discharged from the hospital 2 days ago after being admitted for facial cellulitis. Patient had a little bit of a dry cough. She continues to be on antibiotics. This morning patient felt very short of breath and felt like there was a weight on her chest and comes in for evaluation. Mother feels like may be is her anxiety acting up. Patient does have a history of anxiety but is currently not taking any medication. She denies recent travel or surgery.] Physical Examination: HEENT-PERRLA, EOMI. Cranial nerves II through XII grossly intact. TMs clear. Mucous membranes moist. No adenopathy. Cardiovascular-regular rate and rhythm without murmur or ectopy Lungs-clear to auscultation, chest wall stable without crepitus or subcu emphysema Abdomen-normoactive bowel sounds, soft, mild epigastric tenderness on palpation, no rebound or rigidity, no peritoneal signs. Extremities-intact ?4, normal range of motion, normal pulses, atraumatic] Test Results: [CBC with differential obtained showed a white blood cell count of 4.7, hemoglobin 11.8, hematocrit 36, placed 215. Chemistries unremarkable. D- dimer was elevated 4.[address] of the chest was obtained which showed no evidence of PEs. Patient had small bilateral effusions. Patient was noted to have some mild inflammation around the head of the pancreas there is some concern for pancreatitis however her lipase was normal at 133.] EKG obtained on arrival showed a sinus rhythm with a ventricular rate of 53 bpm with no acute I segment changes. Emergency Department Course and Treatment: [Patient was not given any treatment in the emergency department and her dyspnea essentially resolved. She is been ambulatory to the bathroom and back without difficulty.] Treatment Plan: [Patient will be given a prescription for Ativan as needed for anxiety] Disposition: [Discharged home in stable condition] Impression: [Dyspnea-etiology uncertain Anxiety] This note was generated with [employer] software. It may contain incorrect words, spelling, and punctuation that were not noted in review of the chart prior to signing ED Disposition - Plan for ED Patient: Referrals: Josiah Abdi III, MD [Primary Care Provider] -
--- NOTE | 2018-09-22 12:27 | ED.DEP ---
ED Disposition - Plan for ED Patient: Instructions: ED Chest Pain Atypical Unkn Cause, ED Stress React Prescriptions: Lorazepam [Ativan] 0.5 mg PO TID PRN #10 tab PRN Reason: Anxiety Referrals: Josiah Abdi III, MD [Primary Care Provider] -
[2018-09-22 12:40] VITALS: BP 121/62; PULSE 74; RESP 15; O2SAT 98
== END 2018-09-22 12:42 | disposition home or self-care (01) ==
LOC: ED 09:35
PROVIDERS: Emergency Provider Emergency Medicine; Family Provider Family Medicine; PCP Family Medicine
DX: R06.00 Dyspnea, unspecified (principal); F41.9 Anxiety disorder, unspecified; R74.8 Abnormal levels of other serum enzymes; J90 Pleural effusion, not elsewhere classified; Z72.0 Tobacco use
CPT/HCPCS: 71046; 71275; 80048; 83690; 85025; 85379; 93005; 96360; 96361; 99285; J7030; Q9967; A4216

== ENCOUNTER 2018-09-29 19:07 | Emergency (ER) | payer MEDICAID, SELFPAY ==
[2018-09-29 19:08] VITALS: BP 118/85; PULSE 84; RESP 14; TEMP 36.1; O2SAT 98; BMI 32.6
--- NOTE | 2018-09-29 19:28 | ED.DCSUM_ITS ---
- ER Visit Summary Date of Service: 09/29/18 Chief Complaint: Skin infection History of Present Illness: The patient is a 22 F who was recently admitted for a skin infection. She had a left facial infection that spread down into her neck. She had imaging done and they could not find a focus. She was seen by ID. She was treated with Unasyn and then Augmentin. She completed her Augmentin course about a week ago. She has a continued induration to her left chin and today it started to look purple. No fevers or other associated symptoms. It does not seem to be spreading at this point. Physical Examination: Afebrile and vitals unremarkable. Patient alert and oriented. No acute distress. Patient's left chin has a quarter sized area of induration and it is slightly violaceous. Skin intact. No fluctuance. Skin otherwise unremarkable. Neck unremarkable. Good range of motion. Cranial nerves grossly intact. Test Results: None performed Emergency Department Course and Treatment: Patient has a continued infection. I suspect this may be the source of her recent face and neck infection. She may have a small abscess. I cannot palpate any fluctuance. This appears to be superficial. She may need I&D if this continues to be an issue. Will refer her to plastics. Will restart her Augmentin. Return if it is spreading or for any new or worsening issues. Treatment Plan: As above Disposition: Discharge Impression: 1. Facial cellulitis This note was generated with [employer] dictation software. It may contain incorrect words, spelling, and punctuation that were not noted in review of the chart prior to signing ED Disposition - Plan for ED Patient: Referrals: Josiah Abdi III, MD [Primary Care Provider] -
--- NOTE | 2018-09-29 19:28 | ED.DEP ---
ED Disposition - Plan for ED Patient: Instructions: Discharge Instructions for Cellulitis Prescriptions: Amox/Clavulanate Tablet [Augmentin Tablet] 875 mg PO Q12H #20 tab Referrals: Leonard Clayton MD [STAFF PHYSICIAN] -
[2018-09-29] MEDS: Amox/Clavulanate 875 MG Tablet PO (19:38)
== END 2018-09-29 19:46 | disposition home or self-care (01) ==
LOC: ED 19:30
PROVIDERS: Emergency Provider Emergency Medicine; Family Provider Family Medicine; PCP Family Medicine
DX: L03.211 Cellulitis of face (principal); Z72.0 Tobacco use
CPT/HCPCS: 99283

== ENCOUNTER 2018-10-12 09:35 | Day surgery (SDC) | payer MEDICAID, SELFPAY ==
[2018-10-05 10:15] VITALS: BMI 32.6
--- NOTE | 2018-10-11 17:43 | PCM.HP.BLA ---
History and Physical Date of Admission: 10/12/18 HISTORY OF PRESENT ILLNESS 22 year old female who presents for evaluation of her left chin infection. She was hospitalized on September 17, 2018 for facial cellulitis and sepsis. At that time she states she popped a zit which led to the infection and hospitalization. CT Neck showed soft tissue edema and no evidence of abscess and cervical adenopathy, possibly reactive. She was treated with Unasyn and Vancomycin and discharged home on Augmentin. She finished the antibiotics, and her redness and swelling returned. She went to the ED on 09/29/18 and she was restarted on Augmentin. She has a persistent soft tissue mass left chin, and she presents today for further evaluation and treatment. PAST MEDICAL HISTORY Anxiety and depression Cancer of spinal cord PAST SURGICAL HISTORY spinal surgery ALLERGIES azithromycin [From Zithromax] diphenhydramine HCl [From Benadryl] MEDICATIONS Lorazepam [Ativan] amoxicillin 875 mg-potassium clavulanate 125 mg FAMILY HISTORY Mother - Diabetes Grandmother - Heart disease SOCIAL HISTORY Smoking Status: Current every day smoker alcohol intake: never substance use type: does not use REVIEW OF SYSTEMS General - Denies fever, fatigue, and weight loss. Eyes - Denies cataracts and glaucoma. ENT - Denies nasal congestion and sore throat. Endocrine - Denies excessive thirst and urination. Skin - Denies skin cancer. Has infected soft tissue mass left chin. Musculoskeletal - Denies joint pain, joint stiffness, weakness of muscles and joints, back pain, and arthritis. Neuro - Has headaches. Has lightheadedness. Cardiovascular - Denies chest pain, fatigue, and shortness of breath with exertion. Psych - Has a history of anxiety. Respiratory - Denies chronic cough and shortness of breath. Patient is a smoker. Gastrointestinal - Denies nausea, vomiting, diarrhea, and constipation. Hematologic - Denies abnormal bruising and bleeding. Has a history of spinal cancer with radiation at age 15. Genitourinary - Denies hematuria and urinary frequency. PHYSICAL EXAMINATION General - Alert and oriented. HEENT - PERRL. EOMI. Throat is clear. On the left chin is a soft tissue mass. It is mobile. Slightly tender to palpation. Measures 1.5 cm. It is raised in configuration. No intra oral masses. Patient can smile symmetrically. No sensory deficits. Neck - Supple and non-tender. No cervical adenopathy. Lungs- Clear to auscultation. Heart - Regular rate and rhythm. Abdomen - Soft and non distended. Extremities - FROM. No axillary adenopathy. Radial pulses are palpable. Neuro - CN II-XII grossly intact. Psych - Normal mood and affect. ASSESSMENT 1. 1.5 cm infected soft tissue mass left chin. 2. Smoker. PLAN CT Neck reviewed. Continue the Augmentin. Renewed her script for 10 days. Patient has a persistent infected soft tissue mass left chin. Recommend incision and drainage and excisional debridement of this infected soft tissue mass. Will leave the wound open initially and begin wound care with Silver dressing changes daily. Once the infection is treated and the inflammation has subsided, can consider delayed closure with a local skin flap. Will schedule the surgery next week. Will send tissue to Pathology for analysis to rule out carcinoma and to Microbiology for culture. A positive culture may necessitate antibiotic modification. Surgery will be on an outpatient basis under general anesthesia. In the meantime, recommend warm compresses to her chin to promote drainage. If spontaneous drainage occurs, may be able to postpone the surgery until the inflammation subsides. At which time, may be able to proceed with excision of the mass with primary closure, possibly a local skin flap. Patient was informed of the risks and complications of the procedure including alternatives to surgery. These were discussed with the patient personally. Patient voices understanding and wishes to proceed. Some of the risks and complications were included in a form from the [employer] [employer]. Encouraged patient to stop smoking as it may have deleterious effects on wound healing.
[2018-10-12 10:05] VITALS: BP 107/72; PULSE 77; RESP 18; TEMP 36.9; O2SAT 99; BMI 31.9
--- NOTE | 2018-10-12 11:25 | ABS_PTH ---
PATIENT: KEVIN WALKER LOC: [facility] [place] U#:[id number] AGE/SX: 22/F ROOM: RE10/12/[address]: Dr. Leonard Clayton MD : 1995 BED: DIS: 10/12/2018 SPEC #: [id number] RECD: 10/12/18 13:59 STATUS: REBEKA REChip #: [id number] DELBERT: 10/12/18 11:[address]: Leonard Clayton DEPT: SURGICAL PATHOLOGY RECD BY: Jaskaran Doherty ENTERED: 10/12/18 14:42 SP TYPE: Abscess OTHR DR: Dr. Josiah Abdi III, MD Tissues: Chin Procedures: PAS Fungus (control) Special Stain Group I Surgery Specimen Level IV AFB Stain (control) HEADER OPERATION: Incision, drainage, debridement, chin abscess PRE-OP DIAGNOSIS: 1.5 cm infected soft tissue mass left chin TISSUE SUBMITTED: Soft tissue left chin abscess MICROSCOPIC DIAGNOSIS Left chin abscess: A piece of skin with underlying tissue with acute and chronic inflammation and abscess formation. Special stains for acid fast bacilli and fungi are negative for organisms, in the area of abscess formation; matched controls are appropriate. See comment. JENNIFER:marlo 10/15/18 COMMENT Special stain for fungi is positive for organisms (yeast, consistent with dermatophytes) in the superficial keratin layers of hair follicle. Correlation with cllinical findigs and appropriate follow up are necessary. MICROSCOPIC DESCRIPTION Slides are reviewed. GROSS DESCRIPTION Received in fixative is one container labeled with the patient's name and designated soft tissue of left chip abscess. The specimen consists of a piece of skin with underlying tissue measuring 1.5 x 0.5 cm and up to 0.7 cm in thickness. This specimen appears to be disrupted. Also present in the container is a small piece of akhtar soft tissue measuring 0.3 x 0.3 x 0.1 cm. The largest piece is bisected. The entire specimen is submitted in one cassette. / JENNIFER:marlo 10/12/18 TC:2 CPT: 10322, 99064 x2
--- NOTE | 2018-10-12 12:09 | PCM.OPRPT ---
Report of Operation Date of Procedure: 10/12/18 Pre-Operative Diagnosis: 1. 1.5 cm infected soft tissue mass left chin. 2. Smoker. Post-Operative Diagnosis: Same. Surgery/Procedure Performed:: Surgical preparation left chin with incision and drainage and excisional debridement 1.5 cm infected soft tissue mass abscess (2 cm2). Description of Surgical Findings:: 22 year old female who presents for evaluation of her left chin infection. She was hospitalized on September 17, 2018 for facial cellulitis and sepsis. At that time she states she popped a zit which led to the infection and hospitalization. CT Neck showed soft tissue edema and no evidence of abscess and cervical adenopathy, possibly reactive. She was treated with Unasyn and Vancomycin and discharged home on Augmentin. She finished the antibiotics, and her redness and swelling returned. She went to the ED on 09/29/18 and she was restarted on Augmentin. Patient was informed of the risks and complications of the procedure including alternatives to surgery. These were discussed with the patient personally. Patient voices understanding and wishes to proceed. Some of the risks and complications were included in a form from the [place] [employer]. Encouraged patient to stop smoking as it may have deleterious effects on wound healing. Size of defect left chin - 2 x 1 x 0.6 cm. metal mockup maker: None Type of Anesthesia:: General Specimen's removed: 1. Infected soft tissue mass abscess left chin to Pathology and Microbiology. 2. MRSA Wound DNA by PCR.. Drains: None. Estimated Blood Loss (mL): 5 ml. Description of Procedure: Patient was taken to OR in supine position and was placed under general anesthesia. The face was prepped and draped in the usual fashion. SCD's were placed for DVT prophylaxis. Perioperative antibiotics were given intravenously. Using xylocaine with epinephrine, the infected area left chin was infiltrated. After waiting 5 minutes for the anesthetic to take effect, I proceeded with surgical preparation of the left chin with incision and drainage of the infected soft tissue abscess. Small amount of pus was seen. A lot of fat necrosis was seen with indurated scar tissue. The fat necrosis and indurated scar tissue was excised and debrided which was adherent to the underlying musculature (mentalis, depressor anguli victor hugo, and depressor labii inferioris muscles). No exposed bone was seen. The infected soft tissue was sent to Pathology for analysis to rule out carcinoma and to Microbiology for culture. MRSA Wound DNA by PCR was also sent. The wound was irrigated with saline. Hemostasis was obtained with electrocautery. The size of the defect after incision and drainage and excisional debridement was 2 x 1 x 0.6 cm. The wound was then dressed with Aquacel Silver compression dressing which was sutured with 4-0 Nylon tie over stent suture dressing. A small 2x2 gauze was also applied over the Silver dressing. Patient tolerated the procedure well and was sent to PACU in satisfactory condition. Patient will be sent home on antibiotics and pain medication. She will keep her head elevated during the initial postop period. She will also be on a lifting restriction. Patient will followup on Monday for a Silver dressing change and to instruct the patient on the dressing changes. Also will discuss the Pathology report and the Microbiology report. A positive culture may necessitate antibiotic modification. Grafts/Implants Used: None. - Complications None. - Admit VTE Documentation VTE Present on Admission: No VTE Mechan Device Prophylaxis: SCD's VTE Pharm Prophylaxis ordered?: No Code Visit Surgery Charges CPT - 06820 ICD-10 - R22.0, L02.01, L03.211, S01.80xA, F17.200 36435 R22.0, L02.01, L03.211, F17.200
--- NOTE | 2018-10-12 12:20 | PCM.DC ---
You will use the following diet at home:: No restrictions, Other - encourage nutritional supplementation with protein to help the healing process. Discharge Activity: May not drive while taking narcotic pain medications., May Shower - from the neck down. May get the left chin wet in the shower after the first dressing change in the office on monday10/15/18. May shower in (days): 1 - from the neck down only. may wash face gently in the sink. May resume sexual activity in: 10-14 days Ice area for (Minutes): 5 - as needed for facial swelling. Weight Bearing Status: Weight bearing as tolerated Lifting Restrictions: 20 lbs. Keep extremity elevated above heart level: - - elevate head. Call your doctor if your incision/area has: Continuous Slow Oozing, Sudden Increased Bleeding, Increased Pain/ Swelling, Increased Redness, Foul Smelling Discharge, Swelling at the incision site Call your doctor if you observe: Fever of 101 or Higher, Coldness, Increased Pain, Shortness of breath, Chest pain, Calf discomfort, Uncontrolled pain Suture Line Care: - - daily silver dressing changes. will change operative dressing in office monday10/15/18. Change Dressing in (Days):: 3 - will change silver dressing in office on monday10/15/18. Cleanse incision/area with: - - may get left chin wound wet in the shower after the first dressing change in the office. Allergies/Adverse Reactions: Allergies azithromycin [From Zithromax] Allergy (Verified 10/10/18 08:57) Unknown diphenhydramine HCl [From Benadryl] Allergy (Verified 10/10/18 08:57) Unknown Medications to take at Discharge Lorazepam [Ativan] 0.5 mg PO TID PRN #10 tab 09/22/18 Clindamycin HCl [Cleocin] 300 mg PO TID #30 cap 10/12/18 Oxycodone HCl/Acetaminophen [Percocet 5/325] 1 - 2 tab PO 4X/DAY PRN PRN 5 Days #40 tab 10/12/18 The following prescriptions were given: Oxycodone HCl/Acetaminophen [Percocet 5/325] 1 - 2 tab PO 4X/DAY PRN PRN 5 Days #40 tab PRN Reason: Pain Clindamycin HCl [Cleocin] 300 mg PO TID #30 cap Primary Care Physician: Josiah Abdi III, MD [Primary Care Provider] - Test Results: Test results from this visit will be discussed in further detail at your follow-up appointment, if applicable. Please Follow Up With: Leonard Clayton MD When: monday10/15/18. call [phone] for appt. Proposed Discharge Date: 10/12/18
--- NOTE | 2018-10-12 12:24 | DCINST_ITS ---
You will use the following diet at home:: No restrictions, Other - encourage nutritional supplementation with protein to help the healing process. Discharge Activity: May not drive while taking narcotic pain medications., May Shower - from the neck down. May get the left chin wet in the shower after the first dressing change in the office on monday10/15/18. May shower in (days): 1 - from the neck down only. may wash face gently in the sink. May resume sexual activity in: 10-14 days Ice area for (Minutes): 5 - as needed for facial swelling. Weight Bearing Status: Weight bearing as tolerated Lifting Restrictions: 20 lbs. Keep extremity elevated above heart level: - - elevate head. Call your doctor if your incision/area has: Continuous Slow Oozing, Sudden Increased Bleeding, Increased Pain/ Swelling, Increased Redness, Foul Smelling Discharge, Swelling at the incision site Call your doctor if you observe: Fever of 101 or Higher, Coldness, Increased Pain, Shortness of breath, Chest pain, Calf discomfort, Uncontrolled pain Suture Line Care: - - daily silver dressing changes. will change operative dressing in office monday10/15/18. Change Dressing in (Days):: 3 - will change silver dressing in office on monday10/15/18. Cleanse incision/area with: - - may get left chin wound wet in the shower after the first dressing change in the office. Allergies/Adverse Reactions: Allergies azithromycin [From Zithromax] Allergy (Verified 10/10/18 08:57) Unknown diphenhydramine HCl [From Benadryl] Allergy (Verified 10/10/18 08:57) Unknown Medications to take at Discharge Lorazepam [Ativan] 0.5 mg PO TID PRN #10 tab 09/22/18 Clindamycin HCl [Cleocin] 300 mg PO TID #30 cap 10/12/18 Oxycodone HCl/Acetaminophen [Percocet 5/325] 1 - 2 tab PO 4X/DAY PRN PRN 5 Days #40 tab 10/12/18 The following prescriptions were given: Oxycodone HCl/Acetaminophen [Percocet 5/325] 1 - 2 tab PO 4X/DAY PRN PRN 5 Days #40 tab PRN Reason: Pain Clindamycin HCl [Cleocin] 300 mg PO TID #30 cap Primary Care Physician: Josiah Abdi III, MD [Primary Care Provider] - Test Results: Test results from this visit will be discussed in further detail at your follow- up appointment, if applicable. Please Follow Up With: Leonard Clayotn MD When: monday10/15/18. call [phone] for appt. Proposed Discharge Date: 10/12/18
[2018-10-12 12:25] VITALS: BP 107/72; BP 111/75; PULSE 90; RESP 16; TEMP 36.4; O2SAT 100
[2018-10-12 12:30] VITALS: BP 107/72; BP 111/75; PULSE 80; RESP 16; O2SAT 100
[2018-10-12 12:45] VITALS: BP 107/72; BP 115/82; PULSE 63; RESP 16; O2SAT 99
[2018-10-12 12:59] VITALS: BP 107/69; BP 107/72; PULSE 67; RESP 16; TEMP 36.8; O2SAT 98
[2018-10-12 13:35] VITALS: BP 107/72
[2018-10-12 15:42] LABS: M R Staph aureus DNA By PCR Negative (Negative); Probe Check PASS; Specimen Processing Control PASS; Staph aureus DNA By PCR NEGATIVE (Negative)
== END 2018-10-12 13:55 | disposition home or self-care (01) ==
LOC: SDC 09:36 → AC 09:37
PROVIDERS: Family Provider Family Medicine; PCP Family Medicine; Referring Provider Surgery; Visit Provider Surgery
PROC: (CPT 10061; principal; 2018-10-12 11:15)
DX: L02.01 Cutaneous abscess of face (principal); F32.9 Major depressive disorder, single episode, unspecified; F41.9 Anxiety disorder, unspecified; F17.210 Nicotine dependence, cigarettes, uncomplicated; Z79.899 Other long term (current) drug therapy
CPT/HCPCS: 10061; 87070; 87075; 87102; 87205; 87206; 87640; 88304; 88305; 88312; J7120; J2405

== ENCOUNTER 2021-11-09 07:10 | Emergency (ER) | payer MEDICAID, SELFPAY ==
[2021-11-09 07:11] VITALS: BP 125/74; PULSE 87; RESP 16; TEMP 36.6; O2SAT 99; BMI 23.6
--- NOTE | 2021-11-09 07:20 | EX.ED.DYSGE1 ---
HPI History of Present Illness Chief Complaint: Nausea/Vomiting Detail of Chief Complaint: Nausea and lightheadedness Informant: patient Narrative Narrative: Patient presents to the emergency department with complaint of nausea and feeling lightheaded today. Patient states that she developed an illness 2 days ago which she thought was a stomach bug. Patient had frequent vomiting and diarrhea associated with it. She denies any abdominal pain. She denies eating any undercooked foods or suspicious foods. She denies recent travel. Currently she states the vomiting and diarrhea is better but today she was nauseated and felt lightheaded and had some blurry vision so she comes in for evaluation. She tells me she is urinating normally. She is not had any fevers. She had COVID-19 early in the year. She denies cough or sore throat or body aches. Patient denies any sick contacts. Patient denies urinary symptoms. PFSH [facility] Medical History (Updated 11/09/21 @ 08:[address] 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, 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) Smoking Status: Current every day smoker tobacco type: cigarettes alcohol intake: never substance use type: does not use additional social history: DOES NOT USE ASPIRIN DOES USE IBUPROFEN ROS ROS ED ROS Narrative Lightheaded Constitutional Constitutional ED: Reports systems reviewed and no addt'l complaints, except as documented; Denies body ache(s), change in weight or chills Eyes Eyes: Denies acute decrease in peripheral vision, change in vision, double vision or loss of vision ENT ENT ED: Reports none; Denies ear pain, lip swelling, loss taste/smell, neck pain, otalgia or sore throat Cardiovascular Cardiovascular: Reports none; Denies abdominal pain, chest pain with activity, leg edema, lightheadedness, palpitations, rapid heart rate or syncope Respiratory/Chest Respiratory/Chest: Reports none; Denies change in mental status, dry cough, dyspnea, hemoptysis, shortness of breath at rest or shortness of breath with exertion Gastrointestinal Gastrointestinal: Reports none and nausea; Denies abdominal pain, change in stool character, diarrhea, hematemesis, hematochezia, melena, rectal bleeding or vomiting Genitourinary Genitourinary ED: Reports none; Denies abdominal discomfort, anuria, dysuria, genital pain or polyuria Musculoskeletal Musculoskeletal: Reports none; Denies arthralgias, back pain, difficulty walking, extremity pain, muscle weakness or myalgias Integumentary Reports none; Denies abscess or rash Neurologic Neurologic: Reports none; Denies abnormal gait, confusion, focal weakness, frequent falls, headache(s), loss of vision, numbness, paresthesias, radicular pain, vertigo or weakness Psychiatric Psychiatric: Reports systems reviewed and no addt'l complaints, except as documented and none; Denies behavioral changes, confusion, difficulty concentrating, hallucinations, suicidal ideation, tactile hallucinations or visual hallucinations Endocrine Endocrinology: Denies none, cold intolerance, excessive sweating, fatigue or heat intolerance Hematologic/Lymphatic Hematologic/Lymphatic: Reports none; Denies anemia, easy bleeding or easy bruising Allergic/Immunologic Allergic/Immunologic ED: Denies as per HPI, none, lip swelling, mouth swelling, throat swelling, tongue swelling or hives EXAM Physical Exam Const Vital Signs: 11/09/21 07:11 Temperature 97.9 F Temperature Source Temporal Pulse Rate 87 Respiratory Rate 16 Blood Pressure 125/74 H Blood Pressure Mean 91 Pulse Ox 99 Oxygen Delivery Method Room Air Positive well nourished and well developed General Appearance ED: well developed and NAD HEENT Reports TM's clear and moist mucous membranes normocephalic and atraumatic; Negative for trauma or tenderness Tympanic Membrane ED: Yes TM's clear Eyes PERRL and EOMs intact bilaterally General Eye ED: Negative for pale conjunctiva or scleral icterus Neck no lymphadenopathy, supple and no JVD General: Negative for tenderness Chest Wall inspection of chest normal and palpation of chest normal Chest: Negative for tenderness Resp normal respiratory effort and clear to auscultation bilaterally Effort and Inspection: Negative for respiratory distress or pain with movement Auscultation: Negative for rhonchi, wheezes or diminished lung sounds Cardio regular rate, regular rhythm, S1 normal heart sound, S2 normal heart sound and no murmurs Peripheral Pulses: pulses 2+ throughout GI normal to inspection, nondistended, normoactive bowel sounds, soft to palpation, non-tender, non-distended and no masses Back/Spine no CVA tenderness and no thoracic nor lumbar tenderness Extremity normal to inspection General Extremety ED: Negative for edema General Extremity: Negative for edema Neuro oriented x3, CN's II-XII intact bilaterally, no sensory deficits noted and gait normal Sensorium / Orientation: awake, alert, oriented to person, oriented to place and oriented to time Motor Exam: strength 5/5 throughout and strength abnormal Psych mental status grossly normal Skin no rashes or lesions noted and no wounds MDM MDM MDM Narrative Medical decision making narrative: IV line established on arrival. Patient received a liter normal same fluid bolus. Patient was given potassium chloride 40 mEq p.o. She felt improved after fluids and Zofran. Orthostatic vital signs were performed and were normal. Patient will be given a prescription for Zofran and advised to follow-up with primary care physician in 3 to 5 days as needed. Patient to return if persistent vomiting, diarrhea, abdominal pain, dehydration, or condition worsen anyway. I suspect likely she has a viral gastroenteritis. Lab Data Attestation: I reviewed the patient's lab results. Labs: Laboratory Results - last 24 hr 11/09/21 11/09/21 07:34 07:34 WBC 5.9 RBC 4.84 Hgb 14.2 Hct 42.3 MCV 87.4 MCH 29.3 MCHC 33.6 RDW Std Deviation 45.1 H RDW Coeff of [place] 13.9 Plt Count 178 MPV 11.4 Immature Gran % (Auto) 0.300 Neut % (Auto) 74.1 H Lymph % (Auto) 15.0 L [place] % (Auto) 8.9 Eos % (Auto) 1.4 Baso % (Auto) 0.3 Absolute Neuts (auto) 4.4 Absolute Lymphs (auto) 0.88 Nucleated RBC % 0 Sodium 140 Potassium 3.4 L Chloride 111 H Carbon Dioxide 24.0 Anion Gap 5 BUN 9 Creatinine 0.74 Estim Creat Clear Calc 115.20 Est GFR (MDRD) Af Amer 120 Est GFR (MDRD) Non-Af 99 BUN/Creatinine Ratio 12.1 Glucose 88 Calcium 8.8 Discharge Plan Triage Chief Complaint: Nausea/Vomiting ED Provider: Madhavi Parsons Dx/Rx/DC Orders Clinical Impression: Viral gastroenteritis Instructions: ED Gastroenteritis, Viral (Adult) Prescriptions: New ondansetron [ondansetron] 4 MG tablet 4 mg PO Q8H PRN PRN (Reason: Nausea) Qty: 10 RF: 0 No Action NK RF: 0 Primary Care Provider: Care Physician,No Primary Referrals: Gee Swift MD [NON-STAFF] - 3-5 Days Care Physician,No Primary [Primary Care Provider] - Disposition Disposition: Home, Self Care
[2021-11-09] MEDS: Ondansetron 4 MG/2 ML Vial IV (07:32)
[2021-11-09] MEDS: 0.9% Normal Saline 1,000 ML 1000 ML IV (07:32)
[2021-11-09 07:44] LABS: Absolute Lymphocyte Count 0.88 X10^3/uL (0.83-4.51); Absolute Neutrophil Count 4.4 X10^3/uL (2.0-7.7); Basophil# 0.02 X10^3/uL; Basophil% 0.3 % (0-1); Eosinophil# 0.08 X10^3/uL; Eosinophils% 1.4 % (0-5); Hematocrit 42.3 % (37-47); Hemoglobin 14.2 g/dL (12.0-15.0); Lymphocyte # 0.88 X10^3/ul (0.83-4.51); Mean Corp Hgb Conc 33.6 g/dL (32-36); Mean Corpuscular Hgb 29.3 pg (27.0-32.0); Mean Corpuscular Volume 87.4 fL (81-99); Mean Platelet Vol. 11.4 fl (6.2-12.0); Monocyte# 0.52 X10^3/uL; Monocyte% 8.9 % (0-10); NRBC Flagged by Analyzer 0 % (0-5); Neutrophil # 4.35 X10^3/uL (2.7-7.7); Neutrophil % 74.1 % (47-70); Platelet Count 178 K/mm3 (150-450); RBC Distribution Width CV 13.9 % (11.6-14.6); RBC Distribution Width SD 45.1 fl (35.1-43.9); Red Blood Count 4.84 M/mm3 (4.2-5.4); White Blood Count 5.9 K/mm3 (4.4-11.0)
[2021-11-09 07:59] LABS: Anion Gap 5 (5-15); BUN 9 mg/dL (7-18); BUN/Creat Ratio 12.1 RATIO (10-20); Calcium,Total 8.8 mg/dL (8.5-10.1); Chloride 111 mmol/L (98-107); Creatinine, Serum 0.74 mg/dL (0.55-1.02); EST Glomerular Filtration Rate 99 mL/min (>60); Est Glom Filt Rate - Afr Amer 120 mL/min (>60); Glucose 88 mg/dL (74-106); Potassium 3.4 mmol/L (3.5-5.1); Sodium Level 140 mmol/L (136-145)
[2021-11-09] MEDS: Potassium Chloride Oral Tablet 20 MEQ 40 MEQ PO (08:26)
[2021-11-09 08:27] VITALS: BP 105/68; BP 109/72; BP 117/68; PULSE 61; PULSE 67; PULSE 74
[2021-11-09] MEDS: Ketorolac 30 MG/ML Syringe IV (09:08)
[2021-11-09 09:59] VITALS: BP 106/61; PULSE 68; O2SAT 100
== END 2021-11-09 10:00 | disposition home or self-care (01) ==
PROVIDERS: Emergency Provider Emergency Medicine; Visit Provider Emergency Medicine
DX: A08.4 Viral intestinal infection, unspecified (principal); R42 Dizziness and giddiness; Z86.16 Personal history of COVID-19
CPT/HCPCS: 80048; 85025; 96361; 96374; 96375; 99284; J7030; J2405

== ENCOUNTER → 2022-08-08 | Outpatient (CLI) | payer MEDICAID, SELFPAY ==
[2022-08-21 12:35] LABS: HPV Reflexed? NOT INDICATED
== END | disposition home or self-care (01) ==
LOC: LABSPEC 16:05
PROVIDERS: Referring Provider Nurse Practitioner Women's Health; Visit Provider Nurse Practitioner Women's Health
DX: Z12.4 Encounter for screening for malignant neoplasm of cervix (principal)
CPT/HCPCS: 88175; G0145

== ENCOUNTER 2022-11-22 07:14 | Emergency (ER) | payer MEDICAID, SELFPAY ==
[2022-11-22 07:15] VITALS: BP 118/75; PULSE 98; RESP 16; TEMP 36.9; O2SAT 98; BMI 24.3
--- NOTE | 2022-11-22 07:39 | EDS_ITS ---
HPI HPI - GI History of Present Illness Chief Complaint: Nausea/Vomiting/Diarrhea Informant: patient Abdominal Pain/Flank Pain Onset: Days (3) Context: Gradual Onset Timing: Continuous Quality: Aching Location: RLQ and LLQ Worsened by: Nothing Relieved by: Nothing Nausea/Vomiting/Emesis GI Symptom: Positive for Nausea and Vomiting Onset: Days (3) Quality: Positive for Nonbilious; Negative for Blood streaks, Coffee ground or Hematemesis Diarrhea/Melena/Hematochezia GI Symptom: Positive for Diarrhea; Negative for Melena or Hematochezia Onset: Days (3) Stool Quality: Positive for Watery Associated Symptoms Associated Symptoms: Negative for Dysuria, Frequency or Hematuria LMP: Approximately 1 month ago Narrative Narrative: Patient presents with nausea, vomiting, and diarrhea for the past 3 days. Patient states she has been unable to keep anything down. Patient denies any hematemesis or coffee-ground emesis. Patient denies any melena or hematochezia. Patient states her diarrhea is watery. Patient admits to some mild lower abdominal pain. Patient describes it as aching. Patient states it has been constant. Patient states nothing makes it better nothing makes it worse. Patient denies any urinary complaints. Patient states her last menstrual period was approximately 1 month ago. PFSH PFS Medical History Anxiety and depression Cancer of spinal cord Home Medications ondansetron 4 mg disintegrating tablet 4 mg PO Q8H PRN PRN Nausea #10 tabs 11/22/22 [Rx Last Taken Unknown] Allergy/AdvReac Type Severity Reaction Status Date / Time azithromycin [From Zithromax] Allergy Unknown Verified 11/22/22 07:14 diphenhydramine HCl Allergy Unknown Verified 11/22/22 07:14 [From Benadryl] Family History Mother Diabetes Grandmother Heart disease Surgical History H/O bilateral salpingectomy History of spinal surgery Social History Smoking Status: Current every day smoker tobacco type: cigarettes alcohol intake: current details: occasionally substance use type: does not use caffeine: Yes what type of physical activity do you participate in: none seatbelt use: always do you feel safe at home: Yes additional social history: Single-[address] Thru ROS ROS ED Constitutional Constitutional ED: Denies chills or fever(s) Eyes Eyes: Denies blurry vision or change in vision ENT ENT ED: Denies rhinorrhea or sore throat Cardiovascular Cardiovascular: Denies chest pain or palpitations Respiratory/Chest Respiratory/Chest: Denies cough or dyspnea Gastrointestinal Gastrointestinal: Reports abdominal pain, diarrhea, nausea and vomiting; Denies melena Genitourinary Genitourinary ED: Denies dysuria or hematuria Musculoskeletal Musculoskeletal: Denies back pain or neck pain Integumentary Denies abscess or rash Neurologic Neurologic: Denies headache(s) or weakness Allergic/Immunologic Allergic/Immunologic ED: Denies mouth swelling or urticaria EXAM Physical Exam Const Vital Signs: 11/22/22 07:15 Temperature 98.4 F Temperature Source Temporal Pulse Rate 98 Respiratory Rate 16 Blood Pressure 118/75 Blood Pressure Mean 89 Pulse Ox 98 Oxygen Delivery Method Room Air Positive well nourished and well developed General Appearance ED: well developed and NAD HEENT Reports moist mucous membranes Neck supple and no JVD Resp normal respiratory effort and clear to auscultation bilaterally Cardio regular rate, regular rhythm and no murmurs GI normal to inspection, nondistended, normoactive bowel sounds Palpation: soft and tender LLQ, RLQ and suprapubic; Negative for guarding or rebound tenderness present Extremity normal to inspection General Extremety ED: Negative for edema or tenderness General Extremity: Negative for edema Neuro oriented x3, CN's II-XII intact bilaterally, moves all extremities and no sensory deficits noted Sensorium / Orientation: alert Motor Exam: strength 5/5 throughout Psych mental status grossly normal Skin no rashes or lesions noted MDM MDM MDM Narrative Medical decision making narrative: Differential diagnosis includes gastroenteritis, urinary tract infection, colitis, diverticulitis, ovarian cyst, and ectopic . CBC will be obtained to assess for leukocytosis and anemia. Basic metabolic profile will be obtained to assess for electrolyte abnormality and renal function. Urinalysis will be obtained to assess for urinary tract infection. Serum hCG will be obtained to assess for . Stool will be sent for ova and parasites and enteric pathogens to assess for bacterial gastroenteritis. Lab Data Attestation: I reviewed the patient's lab results. Lab results narrative: CBC was reviewed and was within normal limits. Basic metabolic profile was reviewed. There is a mild hypokalemia of 3.2. Serum hCG was reviewed and was negative. Urinalysis was reviewed. There is no evidence of urinary tract infection or hematuria. Labs: Laboratory Results - last 24 hr 11/22/22 11/22/22 11/22/22 08:20 08:20 08:35 WBC 5.7 RBC 5.31 Hgb 15.2 H Hct 45.8 MCV 86.3 MCH 28.6 MCHC 33.2 RDW Std Deviation 42.3 RDW Coeff of [place] 13.4 Plt Count 158 MPV 11.2 Immature Gran % (Auto) 0.400 Neut % (Auto) 82.4 H Lymph % (Auto) 9.8 L [place] % (Auto) 6.5 Eos % (Auto) 0.5 Baso % (Auto) 0.4 Absolute Neuts (auto) 4.7 Absolute Lymphs (auto) 0.56 L Nucleated RBC % 0 Differential Comment SCANNED Sodium 137 Potassium 3.2 L Chloride 108 H Carbon Dioxide 23.0 Anion Gap 6 BUN 10 Creatinine 0.71 Estim Creat Clear Calc 117.94 Est GFR (MDRD) Af Amer 125 Est GFR (MDRD) Non-Af 103 BUN/Creatinine Ratio 14.0 Glucose 95 Calcium 8.7 Serum , Qual NEGATIVE Urine Color Urine Clarity Urine pH Ur Specific [place] Urine Protein Urine Glucose (UA) Urine Ketones Urine Occult Blood Urine Nitrite Urine Bilirubin Urine Urobilinogen Ur Leukocyte Esterase Urine RBC Urine WBC Ur Squamous Epith Cells Urine Bacteria Urine Mucus 11/22/22 09:18 WBC RBC Hgb Hct MCV MCH MCHC RDW Std Deviation RDW Coeff of [place] Plt Count MPV Immature Gran % (Auto) Neut % (Auto) Lymph % (Auto) [place] % (Auto) Eos % (Auto) Baso % (Auto) Absolute Neuts (auto) Absolute Lymphs (auto) Nucleated RBC % Differential Comment Sodium Potassium Chloride Carbon Dioxide Anion Gap BUN Creatinine Estim Creat Clear Calc Est GFR (MDRD) Af Amer Est GFR (MDRD) Non-Af BUN/Creatinine Ratio Glucose Calcium Serum , Qual Urine Color Yellow Urine Clarity Clear Urine pH 6.0 Ur Specific [place] 1.020 Urine Protein 15 H Urine Glucose (UA) Normal Urine Ketones 15 H Urine Occult Blood 10 H Urine Nitrite Negative Urine Bilirubin Negative Urine Urobilinogen Normal Ur Leukocyte Esterase 100 H Urine RBC 0-5 SEEN Urine WBC 0-5 SEEN Ur Squamous Epith Cells 0-5 SEEN Urine Bacteria 1+ Urine Mucus 0 SEEN Treatment and Re-Evaluation :: Patient was given IV fluids, morphine, and Zofran. Patient was given a dose of oral potassium here. Patient is able to tolerate that and keep it down. Patient was instructed to drink small amounts of liquids more frequently. Patient was instructed to advance her diet as tolerated. Patient was given a prescription for Zofran. Patient was instructed to return if worse in any way. Patient was instructed to follow-up with her primary care physician in 5 to 7 days. Patient was advised that her stool culture should be returned by that time. Patient understood and was agreeable with the plan. All questions were answered. Discharge Plan Triage Chief Complaint: Nausea/Vomiting/Diarrhea ED Provider: Brooks Perales Dx/Rx/DC Orders Clinical Impression: Nausea, vomiting, and diarrhea, Hypokalemia, Nicotine abuse Instructions: ED Vomiting and Diarrhea ... Prescriptions: New ondansetron [ondansetron] 4 mg tablet,disintegrating 4 mg PO Q8H PRN PRN (Reason: Nausea) Qty: 10 0RF Primary Care Provider: Care Physician,No Primary Referrals: Care Physician,No Primary [Primary Care Provider] - Disposition Disposition: Home, Self Care
[2022-11-22] MEDS: Ondansetron 4 MG/2 ML Vial IV (08:20)
[2022-11-22] MEDS: Morphine 4 MG/ML Syringe IV (08:21)
[2022-11-22] MEDS: 0.9% Normal Saline 1,000 ML 1000 ML IV (08:21)
[2022-11-22 08:32] LABS: Absolute Lymphocyte Count 0.56 X10^3/uL (0.83-4.51); Absolute Neutrophil Count 4.7 X10^3/uL (2.0-7.7); Basophil# 0.02 X10^3/uL; Basophil% 0.4 % (0-1); Eosinophil# 0.03 X10^3/uL; Eosinophils% 0.5 % (0-5); Hematocrit 45.8 % (37-47); Hemoglobin 15.2 g/dL (12.0-15.0); Lymphocyte # 0.56 X10^3/ul (0.83-4.51); Lymphocyte % 9.8 % (19-41); Mean Corp Hgb Conc 33.2 g/dL (32-36); Mean Corpuscular Hgb 28.6 pg (27.0-32.0); Mean Corpuscular Volume 86.3 fL (81-99); Mean Platelet Vol. 11.2 fl (6.2-12.0); Monocyte# 0.37 X10^3/uL; Monocyte% 6.5 % (0-10); NRBC Flagged by Analyzer 0 % (0-5); Neutrophil # 4.71 X10^3/uL (2.7-7.7); Neutrophil % 82.4 % (47-70); POSITIVE DIFFERENTIAL YES; Platelet Count 158 K/mm3 (150-450); RBC Distribution Width CV 13.4 % (11.6-14.6); RBC Distribution Width SD 42.3 fl (35.1-43.9); Red Blood Count 5.31 M/mm3 (4.2-5.4); White Blood Count 5.7 K/mm3 (4.4-11.0)
[2022-11-22 08:33] LABS: Differential Indicated SCAN CRITERIA MET
[2022-11-22 08:44] LABS: Anion Gap 6 (5-15); BUN 10 mg/dL (7-18); Calcium,Total 8.7 mg/dL (8.5-10.1); Chloride 108 mmol/L (98-107); Creatinine, Serum 0.71 mg/dL (0.55-1.02); EST Glomerular Filtration Rate 103 mL/min (>60); Est Glom Filt Rate - Afr Amer 125 mL/min (>60); Estimated Creatinine Clearance 117.94 ml/min; Glucose 95 mg/dL (74-106); Potassium 3.2 mmol/L (3.5-5.1); Sodium Level 137 mmol/L (136-145)
[2022-11-22 08:57] LABS: Differential Comment SCANNED
[2022-11-22 09:12] LABS: Internal QC Validated? YES +Cl - CLEAR BKGD; Pregnancy, Serum, hCG Quali. NEGATIVE Negative
[2022-11-22 09:23] LABS: Mucous, Urine 0 SEEN /hpf (<or=2+)
[2022-11-22 09:28] LABS: Color, Urine Yellow (Yellow); Glucose, Dipstick Normal (Normal); Ketone-Dipstick 15 mg/dl (Negative); Leukocyte Esterase-Dipstick 100 /ul (Negative); Nitrite-Dipstick Negative (Negative); Occult Blood-Urine 10 /ul (Negative); Protein-Dipstick 15 mg/dl (Negative); Urine Bilirubin Dipstick Negative (Negative); Urine Clarity Clear (Clear); Urine Urobilinogen Normal (Normal)
[2022-11-22 09:34] LABS: White Blood Cells 0-5 SEEN /hpf (0-5)
[2022-11-22 09:35] LABS: Bacteria 1+ /hpf (None Seen); Red Blood Cells-Urine 0-5 SEEN /hpf (0-5); Squamous Epithelial Cells - UA 0-5 SEEN /hpf (5-10)
[2022-11-22] MEDS: Potassium Chloride Oral Tablet 20 MEQ 40 MEQ PO (10:20)
--- NOTE | 2022-11-22 13:28 | ED.RN ---
THIS RN CALLED PT TO NOTIFY OF ROTAVIRUS. NOT TREATMENT DIFFERENCE PER DR ANDERSON
--- NOTE | 2022-11-22 16:48 | ED.RN ---
PT CALLED BACK, NOTIFIED OF POSITIVE ROTAVIRUS RESULT AND GAVE INSTRUCTIONS TO CONTINUE CURRENT TREATMENT. PT VOICES UNDERSTANDING.
== END 2022-11-22 10:23 | disposition home or self-care (01) ==
PROVIDERS: Emergency Provider Emergency Medicine; Visit Provider Emergency Medicine
DX: R11.2 Nausea with vomiting, unspecified (principal); R19.7 Diarrhea, unspecified; R10.30 Lower abdominal pain, unspecified; E87.6 Hypokalemia; F17.210 Nicotine dependence, cigarettes, uncomplicated
CPT/HCPCS: 80048; 81001; 84703; 85025; 87177; 87209; 87493; 87506; 96361; 96374; 96375; 99283; A4216; J2405

== ENCOUNTER 2023-02-07 12:05 | Emergency (ER) | payer MEDICAID, SELFPAY ==
[2023-02-07 12:06] VITALS: BP 127/78; PULSE 107; RESP 14; TEMP 36.6; O2SAT 97; BMI 28.1
--- NOTE | 2023-02-07 12:15 | EDS_ITS ---
HPI History of Present Illness Chief Complaint: Bite Detail of Chief Complaint: Cat bites and scratches Informant: patient Narrative Narrative: Patient presents to the emergency department after being bitten and scratched by her cat on the upper and lower extremities. The cat is known and belongs to the patient. This is a house cat. The cat typically does not go outside. The cat has not been acting ill at all. The cat has been neutered but has not had any vaccinations. PFSH PFS Medical History Anxiety and depression Cancer of spinal cord Home Medications ondansetron 4 mg disintegrating tablet 4 mg PO Q8H PRN PRN Nausea #10 tabs 11/22/22 [Rx Last Taken Unknown] amoxicillin 875 mg-potassium clavulanate 125 mg tablet 875 mg PO Q12H #20 TABLETS 02/07/23 [Rx Last Taken Unknown] Allergy/AdvReac Type Severity Reaction Status Date / Time azithromycin [From Zithromax] Allergy Unknown Verified 02/07/23 12:05 diphenhydramine HCl Allergy Unknown Verified 02/07/23 12:05 [From Benadryl] Family History Mother Diabetes Grandmother Heart disease Surgical History H/O bilateral salpingectomy History of spinal surgery Social History Smoking Status: Current every day smoker tobacco type: cigarettes alcohol intake: current details: occasionally substance use type: does not use caffeine: Yes what type of physical activity do you participate in: none seatbelt use: always do you feel safe at home: Yes additional social history: Single-[address] Thru ROS ROS ED Review of Systems ROS Unobtainable: other Constitutional Constitutional ED: Reports lethargy; Denies chills, fever(s), sweats or weight loss Eyes Eyes: Denies blurry vision, change in vision or diplopia ENT ENT ED: Denies rhinorrhea or sore throat Cardiovascular Cardiovascular: Denies chest pain, orthopnea or racing heartbeat Respiratory/Chest Respiratory/Chest: Denies cough, dyspnea, dyspnea on exertion, orthopnea or sputum Gastrointestinal Gastrointestinal: Denies abdominal pain, diarrhea, nausea or vomiting Genitourinary Genitourinary ED: Denies dysuria, hematuria or urinary frequency Musculoskeletal Musculoskeletal: Denies arthralgias, back pain, myalgias or neck pain Integumentary Reports other Details: Bite and scratch wounds to upper and lower extremities ; Denies abscess, Abrasions or rash Neurologic Neurologic: Denies headache(s) or weakness Psychiatric Psychiatric: Denies anxiety, depression or suicidal thoughts Endocrine Endocrinology: Denies polydipsia, polyphagia or polyuria Hematologic/Lymphatic Hematologic/Lymphatic: Denies easy bleeding, easy bruising or lymphadenopathy Allergic/Immunologic Allergic/Immunologic ED: Denies mouth swelling, tongue swelling or urticaria EXAM Physical Exam Const Vital Signs: 02/07/23 12:06 Temperature 98 F Temperature Source Temporal Pulse Rate 107 H Respiratory Rate 14 Blood Pressure 127/78 H Blood Pressure Mean 94 Pulse Ox 97 Oxygen Delivery Method Room Air Positive well nourished and well developed General Appearance ED: well developed and NAD HEENT Reports TM's clear and moist mucous membranes normocephalic and atraumatic; Negative for trauma or tenderness Tympanic Membrane ED: Yes TM's clear Eyes PERRL and EOMs intact bilaterally General Eye ED: Negative for pale conjunctiva or scleral icterus Neck no lymphadenopathy, supple and no JVD General: Negative for tenderness Chest Wall inspection of chest normal and palpation of chest normal Chest: Negative for tenderness Resp normal respiratory effort and clear to auscultation bilaterally Effort and Inspection: Negative for respiratory distress or pain with movement Auscultation: Negative for rhonchi, wheezes or diminished lung sounds Cardio regular rate, regular rhythm, S1 normal heart sound, S2 normal heart sound and n o murmurs Peripheral Pulses: pulses 2+ throughout GI normal to inspection, nondistended, normoactive bowel sounds, soft to palpation, non-tender, non-distended and no masses Back/Spine no CVA tenderness and no thoracic nor lumbar tenderness Extremity Extremity Narrative: Patient with multiple scratches and bite wounds to the upper and lower extremities from the elbows to the hands bilaterally and from the knees down to the feet bilaterally. General Extremety ED: Negative for edema General Extremity: Negative for edema Neuro oriented x3, CN's II-XII intact bilaterally, no sensory deficits noted and gait normal Sensorium / Orientation: awake, alert, oriented to person, oriented to place and oriented to time Motor Exam: strength 5/5 throughout and strength abnormal Psych mental status grossly normal Skin no rashes or lesions noted and no wounds MDM MDM MDM Narrative Medical decision making narrative: Patient presents with bite and scratch wounds from her own cat that is an indoor cat. The cat can be observed. She will be given tetanus and will be started on Augmentin. I do not think she needs rabies vaccination and immunoglobulin. They are comfortable with plan. Discharge Plan Triage Chief Complaint: Bite ED Provider: Madhavi Parsons Dx/Rx/DC Orders Clinical Impression: Cat bite Instructions: ED Cat Bite Prescriptions: New amoxicillin-pot clavulanate [amoxicillin-pot clavulanate] 875-125 mg tablet 875 mg PO Q12H Qty: 20 0RF No Action ondansetron [ondansetron] 4 mg tablet,disintegrating 4 mg PO Q8H PRN PRN (Reason: Nausea) Qty: 10 0RF Primary Care Provider: Care Physician,No Primary Referrals: Morgan Kuo MD [Med Staff - Active Staff] - 3-5 Days Care Physician,No Primary [Primary Care Provider] - Disposition Disposition: Home, Self Care
[2023-02-07 12:30] VITALS: BP 126/74; PULSE 84; RESP 16; TEMP 36.2; O2SAT 98
[2023-02-07] MEDS: Amox/Clavulanate 875 MG Tablet PO (13:00)
[2023-02-07] MEDS: Diphth,Pertuss(Acell),Tet Vac 0.5 ML Vial IM (13:00)
== END 2023-02-07 13:05 | disposition home or self-care (01) ==
PROVIDERS: Emergency Provider Emergency Medicine; Referring Provider Emergency Medicine; Visit Provider Emergency Medicine
DX: S81.851A Open bite, right lower leg, initial encounter (principal); F17.210 Nicotine dependence, cigarettes, uncomplicated; W55.01XA Bitten by cat, initial encounter; S81.852A Open bite, left lower leg, initial encounter; S51.851A Open bite of right forearm, initial encounter; S51.852A Open bite of left forearm, initial encounter; S61.451A Open bite of right hand, initial encounter; S61.452A Open bite of left hand, initial encounter; Z23 Encounter for immunization
CPT/HCPCS: 90715; 99284

== ENCOUNTER 2023-04-11 11:32 | Emergency (ER) | payer MEDICAID, SELFPAY ==
[2023-04-11 11:33] VITALS: BP 133/82; PULSE 80; RESP 18; TEMP 36.1; O2SAT 100; BMI 27.3
--- NOTE | 2023-04-11 12:12 | EDS_ITS ---
HPI History of Present Illness Chief Complaint: Back Detail of Chief Complaint: 23-year-old male with right low back pain after carrying 2 by fours Informant: patient and family Onset/Context/Timing Onset: Today and Hours Context: Sudden Onset Injury: lifting and bending Timing: Continuous Quality: Dull and Aching Current Severity: Moderate Maximum Severity: Moderate Worsened by: improves with Movement and Bending Relieved by: Remaining Still Associated Symptoms Associated Symptoms: Negative for Numbness, Tingling, Radiation to Right Leg, Radiation to Left Leg, Fever, Abdominal Pain, Dysuria, Unable to Ambulate, Unable to Transfer, Urinary Retention, Urinary Incontinence, Constipation or Fecal Incontinence Narrative Narrative: 27-year-old female history of prior back surgery x2 the initial one is 15 years old for 8 spinal cord cancer that has completely resolved. She also had to have a second back surgery for bone spurs. Currently is building a house. She was lifting and carrying 2 by fours and felt pain in her lower back. Denies any numbness or weakness to her lower legs. Is never had any disc problems. This occurred today about an hour prior to arrival. Prior similar symptoms: Yes Recent Illness/Hospitalization: No PFSH PFSH Medical History Anxiety and depression Cancer of spinal cord Home Medications ondansetron 4 mg disintegrating tablet 4 mg PO Q8H PRN PRN Nausea #10 tabs 11/22/22 [Rx Last Taken Unknown] amoxicillin 875 mg-potassium clavulanate 125 mg tablet 875 mg (0.875 x 875-125 mg) PO Q12H #20 TABLETS 02/07/23 [Rx Last Taken Unknown] metaxalone 800 mg tablet 800 mg PO TID 7 days #21 tabs 04/11/23 [Rx Last Taken Unknown] Allergy/AdvReac Type Severity Reaction Status Date / Time azithromycin [From Zithromax] Allergy Unknown Verified 04/11/23 11:35 diphenhydramine HCl Allergy Unknown Verified 04/11/23 11:35 [From Benadryl] Family History Mother Diabetes Grandmother Heart disease Surgical History H/O bilateral salpingectomy History of spinal surgery Social History Smoking Status: Current every day smoker tobacco type: cigarettes alcohol intake: current details: occasionally substance use type: does not use caffeine: Yes what type of physical activity do you participate in: none seatbelt use: always do you feel safe at home: Yes additional social history: Single-[address] Thru ROS ROS ED ROS Narrative Low back pain. No radiation pattern Review of Systems ROS Unobtainable: Denies due to encephalopathy Constitutional Constitutional ED: Denies chills or fever(s) Eyes Eyes: Denies blurry vision ENT ENT ED: Denies ear pain Cardiovascular Cardiovascular: Denies chest pain Respiratory/Chest Respiratory/Chest: Denies dyspnea Gastrointestinal Gastrointestinal: Denies abdominal pain Genitourinary Genitourinary ED: Denies dysuria or hematuria Musculoskeletal Musculoskeletal: Denies arthralgias Integumentary Denies abscess Neurologic Neurologic: Denies headache(s) Psychiatric Psychiatric: Denies anxiety or depression Endocrine Endocrinology: Denies cold intolerance Hematologic/Lymphatic Hematologic/Lymphatic: Denies easy bleeding or easy bruising Allergic/Immunologic Allergic/Immunologic ED: Denies mouth swelling or tongue swelling EXAM Physical Exam Narrative Exam Narrative: 18-year-old female no acute distress. Vital signs stable afebrile. HEENT exam unremarkable. Moist mucous membranes. Neck nontender. Lungs clear to auscultation bilaterally. Heart regular rate and rhythm no murmur. Chest wall nontender. Abdomen soft nontender. Moving all 4 extremities. Normal range of motion. 5/[address] strength. Dorsi plantarflexion intact. No cauda equina. No saddle anesthesia. Normal medial thigh sensation. Negative straight leg raise bilaterally. Back there is no spine tenderness. She has a well-healed prior spinal surgery from the lower thoracic the lumbar spine. Patient does have paralumbar soft tissue tenderness consistent with myofascial strain. There is no ecchymosis or bruising. No redness or warmth. Neurologic exam is normal. No focal motor weakness or numbness. Const Vital Signs: 04/11/23 11:33 Temperature 97.0 F L Temperature Source Temporal Pulse Rate 80 Respiratory Rate 18 Blood Pressure 133/82 H Blood Pressure Mean 99 Pulse Ox 100 Oxygen Delivery Method Room Air Positive well nourished and well developed; Negative for obese, cachectic, contractures or unkempt General Appearance ED: well developed and NAD; Negative for unkempt, cachectic, contractures or pallor Nutritional Appearance: Negative for cachectic or obese HEENT Reports moist mucous membranes Negative for trauma or tenderness Eyes PERRL and EOMs intact bilaterally Neck no lymphadenopathy, supple and no JVD General: Negative for tenderness Thyroid: Negative for other Resp normal respiratory effort and clear to auscultation bilaterally Effort and Inspection: Negative for pain with movement Auscultation: Negative for rales, rhonchi or wheezes Cardio regular rate, regular rhythm, S1 normal heart sound, S2 normal heart sound and no murmurs Palpation: Negative for palpable S3 Rate: Negative for bradycardia or tachycardic Rhythm: Negative for abnormal rhythm Bruits: Negative for other GI normal to inspection, nondistended, normoactive bowel sounds, soft to palpation, non-tender, non-distended and no masses Inspection: Negative for abdominal distention Auscultation: Negative for hyperactive bowel sounds Palpation: Negative for tender or guarding Bladder / Kidney Exam: No other Back/Spine normal to inspection; Negative for no thoracic nor lumbar tenderness Back/Spine Narrative: Tenderness to the musculature of the paralumbar spine. No ecchymosis or bruising. Well-healed prior spinal surgical scar. No bony tenderness. General Back: Negative for CVA tenderness Cervical Spine: Negative for cervical spine tenderness Thoracic Spine / Upper Back: paraspinal muscle tenderness Extremity normal to inspection and no clubbing, cyanosis or edema General Extremety ED: Negative for edema or tenderness General Extremity: Negative for edema Neuro oriented x3 and no sensory deficits noted Sensorium / Orientation: alert; Negative for confused, lethargic or stuporous Sensory Exam: No other Motor Exam: strength 5/5 throughout; Negative for strength abnormal Psych mental status grossly normal Appearance: Negative for unkempt Attitude: No agitated Mood & Affect: Negative for depressed, sad or tearful Skin no rashes or lesions noted and no wounds General Skin Exam: Negative for jaundice or pallor Lesions: No lesion noted Rashes: No rashes noted Trauma: Negative for abrasion or puncture Wounds: Negative for wounds noted MDM MDM MDM Narrative Medical decision making narrative: 27-year-old female with low back pain after lifting and carrying 2 by fours. Exam is consistent with lumbar strain. There is no signs of radiculopathy. There is no leg weakness or numbness. There is no cauda equina. Her prior spine surgical scars are well-healed. She will be treated with ibuprofen and Tylenol for pain and inflammation. Skelaxin as a muscle relaxant. Follow-up if not improving. She does not need any imaging because she did not fall and there is no need for an MRI at this time. History & Record Review Discussion w/independent historian: Patient and Family Additional record(s) reviewed:: Prior inpatient record, Prior outpatient record and Prior ED visit Discharge Plan Triage Chief Complaint: Back ED Provider: Renzo Parsons Dx/Rx/DC Orders Clinical Impression: History of back surgery, Acute lumbar myofascial strain Instructions: ED Back Sprain/Strain Prescriptions: New metaxalone 800 mg tablet 800 mg PO TID 7 Days Qty: 21 0RF No Action ondansetron [ondansetron] 4 mg tablet,disintegrating 4 mg PO Q8H PRN PRN (Reason: Nausea) Qty: 10 0RF amoxicillin-pot clavulanate [amoxicillin-pot clavulanate] 875-125 mg tablet 875 mg PO Q12H Qty: 20 0RF Primary Care Provider: Care Physician,No Primary Referrals: Cristi Curtis MD [Med Staff - Director Of Social Media Marketing] - 1 Week if not improving Care Physician,No Primary [Primary Care Provider] - Activity Restrictions/Additional Instructions: This appears to be a strain of the muscles along your lower lumbar spine. Do not need any x-rays or MRI. Motrin or ibuprofen for pain and inflammation. Tylenol for pain. Hot shower, warm bath, and oral pull and massage. Help relax the muscles. Skelaxin as a muscle relaxant and take 1 pill 3 times a day. It should start progressively improving in 3 to 4 days. Follow-up if not improving or return if a lot worse. Disposition Disposition: Home, Self Care
[2023-04-11] MEDS: Metaxalone 800 MG Tablet PO (12:39)
== END 2023-04-11 12:40 | disposition home or self-care (01) ==
PROVIDERS: Emergency Provider Emergency Medicine; Visit Provider Emergency Medicine
DX: S39.012A Strain of muscle, fascia and tendon of lower back, initial encounter (principal); X50.0XXA Overexertion from strenuous movement or load, initial encounter; Y93.H3 Activity, building and construction; F17.210 Nicotine dependence, cigarettes, uncomplicated; Z85.848 Personal history of malignant neoplasm of other parts of nervous tissue
CPT/HCPCS: 99282

== ENCOUNTER 2023-05-01 06:22 | Emergency (ER) | payer MEDICAID, SELFPAY ==
[2023-05-01 06:23] VITALS: BP 133/86; PULSE 105; RESP 16; TEMP 36.6; O2SAT 99; BMI 27.1
--- NOTE | 2023-05-01 07:17 | EX.ED.DYSGE1 ---
HPI History of Present Illness Chief Complaint: General Illness Informant: patient Onset/Context/Timing Onset: Yesterday Context: Sudden Onset Timing: Continuous Quality: Dull Location: Chest Worsened by: Exertion Relieved by: Nothing Narrative Narrative: Patient presents with with shortness of breath that began yesterday. Patient states her breathing is worse with any exertion. Patient states she feels like she is out of breath after walking several feet. Patient admits to some dull pain in her chest. Patient states this has been constant since yesterday. Patient states nothing seems to help with it. Patient admits to some subjective fevers and chills. Patient admits to some nausea and dry heaves. Patient also admits to a headache. Patient states she had a recent corneal abrasion and is on a antibiotic ophthalmic ointment. PFSH [facility] Medical History Anxiety and depression Cancer of spinal cord Home Medications NK 05/01/23 [History Last Taken Unknown] Allergy/AdvReac Type Severity Reaction Status Date / Time azithromycin [From Zithromax] Allergy Unknown Verified 05/01/23 06:22 diphenhydramine HCl Allergy Unknown Verified 05/01/23 06:22 [From Benadryl] Family History Mother Diabetes Grandmother Heart disease Surgical History H/O bilateral salpingectomy History of spinal surgery Social History Smoking Status: Current every day smoker tobacco type: cigarettes alcohol intake: current details: occasionally substance use type: does not use caffeine: Yes what type of physical activity do you participate in: none seatbelt use: always do you feel safe at home: Yes additional social history: Single-[address] Thru ROS [facility] ED Constitutional Constitutional ED: Reports chills, fever(s) and subjective Eyes Eyes: Denies blurry vision or change in vision ENT ENT ED: Denies rhinorrhea or sore throat Cardiovascular Cardiovascular: Reports chest pain; Denies palpitations Respiratory/Chest Respiratory/Chest: Reports dyspnea; Denies cough Gastrointestinal Gastrointestinal: Reports nausea; Denies vomiting Genitourinary Genitourinary ED: Denies dysuria or hematuria Musculoskeletal Musculoskeletal: Denies back pain or neck pain Integumentary Denies abscess or rash Neurologic Neurologic: Reports headache(s); Denies weakness Allergic/Immunologic Allergic/Immunologic ED: Denies mouth swelling or urticaria EXAM Physical Exam Const Vital Signs: 05/01/23 06:23 05/01/23 07:22 05/01/23 07:39 Temperature 97.8 F Temperature Source Temporal Pulse Rate 105 H 70 Respiratory Rate 16 16 Respiratory Pattern Normal Blood Pressure 133/86 H Blood Pressure Mean 101 Pulse Ox 99 Oxygen Delivery Method Room Air Positive well nourished and well developed General Appearance ED: well developed and NAD HEENT Reports moist mucous membranes Eyes PERRL and EOMs intact bilaterally Neck supple and no JVD Resp normal respiratory effort and clear to auscultation bilaterally Cardio regular rate, regular rhythm and no murmurs GI normal to inspection, nondistended, normoactive bowel sounds and non-tender Palpation: soft Extremity normal to inspection General Extremety ED: Negative for edema or tenderness General Extremity: Negative for edema Neuro oriented x3, CN's II-XII intact bilaterally and no sensory deficits noted Sensorium / Orientation: alert Motor Exam: strength 5/5 throughout Psych mental status grossly normal Skin no rashes or lesions noted MDM MDM MDM Narrative Medical decision making narrative: Differential diagnosis includes pneumonia, pneumothorax, pulmonary embolism, cardiac dysrhythmia, viral illness, and anxiety. Chest x-ray will be obtained to assess for pneumonia and pneumothorax. EKG will be obtained to assess for cardiac dysrhythmia and cardiac ischemia. CBC will be obtained to assess for leukocytosis and anemia. Basic metabolic profile will be obtained to assess for electrolyte abnormality and renal function. D-dimer will be obtained to assess for pulmonary embolism. COVID-19 rapid antigen will be obtained to assess for COVID-19 infection. Influenza A and influenza B antigens will be obtained to assess for influenza infection. Lab Data Attestation: I reviewed the patient's lab results. Lab results narrative: CBC was reviewed and was within normal limits. Basic metabolic profile was reviewed and was essentially within normal limits. D-dimer was reviewed and was elevated at 1.32. COVID-19 rapid antigen was reviewed and was negative. Influenza A and influenza B antigens were reviewed and were negative. Labs: Laboratory Results - last 24 hr 05/01/23 07:40 WBC 7.7 RBC 5.22 Hgb 15.1 H Hct 46.4 MCV 88.9 MCH 28.9 MCHC 32.5 RDW Std Deviation 44.6 H RDW Coeff of [place] 13.7 Plt Count 211 MPV 11.3 Immature Gran % (Auto) 0.400 Neut % (Auto) 78.0 H Lymph % (Auto) 15.3 L [place] % (Auto) 5.3 Eos % (Auto) 0.5 Baso % (Auto) 0.5 Absolute Neuts (auto) 6.0 Absolute Lymphs (auto) 1.18 Nucleated RBC % 0 D-Dimer Quant (PE/DVT) 1.32 H* Sodium 139 Potassium 3.5 Chloride 108 H Carbon Dioxide 23.0 Anion Gap 8 BUN 13 Creatinine 0.78 Estim Creat Clear Calc 107.35 Est GFR (MDRD) Af Amer 111 Est GFR (MDRD) Non-Af 92 BUN/Creatinine Ratio 16.6 Glucose 77 Calcium 9.1 Radiography Chest X-Ray - ED: 2 View, Read by ED Physician, Read by Radiologist and No Acute Disease CTA PE Study: No Evidence of PE and No Evidence of Dissection Diagnostic Testing: Clinical Impression(s) from Imaging Studies Chest X-Ray 05/01/23 08:08 IMPRESSION: Normal x-ray examination of the chest. Electronically Signed: Tao Dodge MD at 8:33 EDT Reading Location ID and State: [address] [place] [address] , Service support , Chest CTA 05/01/23 08:28 IMPRESSION: Negative CTA chest examination, without a demonstrated pulmonary embolism or arterial dissection. Electronically Signed: Tao Dodge MD at 10:08 EDT , PA and lateral chest x-ray was obtained. There are 2 views. On my independent interpretation, lung colon are clear. There is normal cardiac silhouette. Bony thorax is normal. There is no acute process noted. Radiologist also interpreted the x-ray and agrees. Because of the elevated D-dimer, CTA of the chest was obtained. There is no pulmonary embolism or arterial dissection. There is no acute abnormality noted. This was interpreted by the radiologist and was also independently reviewed by myself. EKG Initial EKG: Attestation: I personally reviewed and interpreted this EKG as follows: Interpretation: Sinus Rhythm (67) and No Acute Injury Pattern Comments: EKG was obtained. On my independent interpretation, it showed a normal sinus rhythm with a rate of 67. UT interval is slightly shortened at 94 ms, QRS interval normal at 88 ms, and QTc intervals is normal at 452 ms. [place] was normal at 42. There are no acute ST or T wave changes. Prior: Unchanged (09/22/2018) Treatment and Re-Evaluation :: Patient was given a DuoNeb aerosol here. Patient was given IV fluids. Patient was feeling better on reevaluation. Patient was advised of her findings. Patient was advised that this is most likely a viral upper respiratory infection. Patient was instructed to follow-up with her primary care physician in 5 to 7 days. Patient was instructed return if worse in any way. Patient understood and was agreeable with the plan. All questions were answered. Discharge Plan Triage Chief Complaint: General Illness ED Provider: Brooks Perales Dx/Rx/DC Orders Clinical Impression: Nicotine abuse, Viral URI Instructions: ED URI, Viral, No Abx (Adult) Prescriptions: No Action NK Stand Alone Forms: ED Work / School Excuse Primary Care Provider: Care Physician,No Primary Referrals: Brooks Thapa MD [Med Staff - [employer]] - 5-7 Days Care Physician,No Primary [Primary Care Provider] - Disposition Disposition: Home, Self Care
--- NOTE | 2023-05-01 07:22 | EKG12_ITS ---
Test Reason : GENERAL Blood Pressure : / mmHG Vent. Rate : 067 BPM Atrial Rate : 067 BPM P-R Int : 094 ms QRS Dur : 088 ms QT Int : 428 ms P-R-T Axes : 053 042 032 degrees QTc Int : 452 ms Sinus rhythm with sinus arrhythmia with short TX Nonspecific ST abnormality Abnormal ECG Confirmed by FLORENCE ROWE, MAGGI ([id number]), script editor SLAVA ARNETT ([id number]) on 05/04/2023 1:47:50 PM Referred By: Confirmed By:MAGGI HENRIQUEZ MD
[2023-05-01 07:39] VITALS: PULSE 70; RESP 16
[2023-05-01] MEDS: Ipratropium/Albuterol Sulfate 3 ML AMPUL.NEB INHALATION (07:39)
[2023-05-01] MEDS: 0.9% Normal Saline (1000mL) 1,000 ML 1000 ML IV (07:42)
[2023-05-01 07:52] LABS: Absolute Lymphocyte Count 1.18 X10^3/uL (0.83-4.51); Basophil# 0.04 X10^3/uL; Basophil% 0.5 % (0-1); Eosinophil# 0.04 X10^3/uL; Eosinophils% 0.5 % (0-5); Hematocrit 46.4 % (37-47); Hemoglobin 15.1 g/dL (12.0-15.0); Lymphocyte # 1.18 X10^3/ul (0.83-4.51); Lymphocyte % 15.3 % (19-41); Mean Corp Hgb Conc 32.5 g/dL (32-36); Mean Corpuscular Hgb 28.9 pg (27.0-32.0); Mean Corpuscular Volume 88.9 fL (81-99); Mean Platelet Vol. 11.3 fl (6.2-12.0); Monocyte# 0.41 X10^3/uL; Monocyte% 5.3 % (0-10); NRBC Flagged by Analyzer 0 % (0-5); Neutrophil # 6.03 X10^3/uL (2.7-7.7); Platelet Count 211 K/mm3 (150-450); RBC Distribution Width CV 13.7 % (11.6-14.6); RBC Distribution Width SD 44.6 fl (35.1-43.9); Red Blood Count 5.22 M/mm3 (4.2-5.4); White Blood Count 7.7 K/mm3 (4.4-11.0)
--- NOTE | 2023-05-01 08:08 | RAD_ITS ---
STUDY: X-RAY CHEST REASON FOR EXAM: Female, 27 years old. chest pain TECHNIQUE: PA and lateral views of the chest. COMPARISON: September 22, 2018 FINDINGS: The lungs are clear and expanded. There is no demonstrated pleural abnormality. Normal size heart. Normal mediastinum and howard. Normal visualized pulmonary arteries. Normal visualized aortic arch and descending thoracic aorta. Normal visualized thoracic spine. Normal visualized ribs, clavicles, and shoulders. There is no demonstrated abnormality of the visualized soft tissue structures of the upper abdomen. RAD/Chest PA and Lateral IMPRESSION: Normal x-ray examination of the chest. Electronically Signed: Tao Dodge MD at 8:33 EDT ,
[2023-05-01 08:09] LABS: Anion Gap 8 (5-15); BUN 13 mg/dL (7-18); BUN/Creat Ratio 16.6 RATIO (10-20); Calcium,Total 9.1 mg/dL (8.5-10.1); Chloride 108 mmol/L (98-107); Creatinine, Serum 0.78 mg/dL (0.55-1.02); EST Glomerular Filtration Rate 92 mL/min (>60); Est Glom Filt Rate - Afr Amer 111 mL/min (>60); Estimated Creatinine Clearance 107.35 ml/min; Glucose 77 mg/dL (74-106); Potassium 3.5 mmol/L (3.5-5.1); Sodium Level 139 mmol/L (136-145)
[2023-05-01 08:25] LABS: D-Dimer Quantitative (DVT/PE) 1.32 FEU/ug/m (0.27-0.49)
--- NOTE | 2023-05-01 08:28 | CT_ITS ---
STUDY: CTA CHEST REASON FOR EXAM: Female, 27 years old. Elevated D-dimer RADIATION DOSAGE (If Supplied By Facility): CTDIvol = ( 11.02 ) mGy, DLP = ( 439.54 ) mGycm TECHNIQUE: The examination was performed with the intravenous administration of IV 100mL [id number]-[id number]. Post-processing of the angiographic images was performed, with multiplanar reformation and 3D reconstruction. Individualized dose optimization techniques were used for this CT. COMPARISON: CTA of the chest dated September 22, 2018 FINDINGS: No consolidation or pulmonary edema or pleural effusion is present. Normal enhancement of the main pulmonary artery and right and left pulmonary arteries. Normal enhancement of the bilateral peripheral pulmonary arteries. There is no demonstrated pulmonary embolism. Normal thoracic aorta and visualized great vessels. There is no demonstrated aortic dissection. Normal heart and pericardium. There are no demonstrated calcifications of the coronary arteries. Normal mediastinum. Normal hilar regions. Normal visualized trachea and bronchi. The lungs are well expanded. Normal pulmonary parenchyma. Normal pleura. Normal chest wall structures. Normal osseous structures. Normal visualized upper abdomen. CT/CTA Chest W/WO Contrast IMPRESSION: Negative CTA chest examination, without a demonstrated pulmonary embolism or arterial dissection. Electronically Signed: Tao Dodge MD at 10:08 EDT ,
[2023-05-01 10:51] VITALS: BP 103/67; PULSE 71; RESP 18; O2SAT 98
== END 2023-05-01 10:51 | disposition home or self-care (01) ==
PROVIDERS: Emergency Provider Emergency Medicine; Visit Provider Emergency Medicine
DX: J06.9 Acute upper respiratory infection, unspecified (principal); R79.89 Other specified abnormal findings of blood chemistry; R11.2 Nausea with vomiting, unspecified; R06.02 Shortness of breath; R07.9 Chest pain, unspecified; Z20.822 Contact with and (suspected) exposure to COVID-19; F17.210 Nicotine dependence, cigarettes, uncomplicated
CPT/HCPCS: 71046; 71275; 80048; 85025; 85379; 87428; 93005; 96360; 99283; J7030; Q9967; A4216

== ENCOUNTER 2023-10-05 09:56 | Emergency (ER) | payer MEDICAID, SELFPAY ==
[2023-10-05 09:56] VITALS: BP 111/75; PULSE 77; RESP 18; TEMP 36.4; O2SAT 100; BMI 23.7
--- NOTE | 2023-10-05 10:17 | EX.ED.DYSGE1 ---
HPI <Tiffanie Topete RN - Last Filed: 10/05/23 11:00> History of Present Illness Chief Complaint: GI Bleed Informant: patient Onset/Context/Timing Onset: Today Current Severity: Mild Maximum Severity: Mild Associated Symptoms Associated Symptoms: Lower back pain Narrative Narrative: Patient presents to the ED for bright red rectal bleeding associated with bowel movement. Patient reports this occurred 5 times this morning. Reports bright red blood in toilet and surrounding stool. Describes stool as soft and brown. Denies constipation or diarrhea. Denies history of hemorrhoids. Denies nausea and vomiting. Denies dizziness or lightheadedness. Reports some lower back cramping. Rates as 3 out of 10. Has history of chronic low back pain normally rates 1 out of 10. Patient reports last menstrual period began 09/29/2023 and ended 10/03/2023. Of note patient reports history of spinal cancer at 15 years old with radiation and no recurrence. Denies family history of colon cancer. Denies recent alcohol use. Reports marijuana use. Prior similar symptoms: No Recent Illness/Hospitalization: No PFSH <Tiffanie Topete RN - Last Filed: 10/05/23 11:00> PFSH Medical History Anxiety and depression Cancer of spinal cord Home Medications NK 05/01/23 [History Last Taken Unknown] Allergy/AdvReac Type Severity Reaction Status Date / Time azithromycin [From Zithromax] Allergy Unknown Verified 10/05/23 09:58 diphenhydramine HCl Allergy Unknown Verified 10/05/23 09:58 [From Benadryl] Family History Mother Diabetes Grandmother Heart disease Surgical History H/O bilateral salpingectomy History of spinal surgery Social History Smoking Status: Current every day smoker tobacco type: cigarettes alcohol intake: current details: occasionally substance use type: does not use caffeine: Yes what type of physical activity do you participate in: none seatbelt use: always do you feel safe at home: Yes additional social history: Single-[employer] [employer] ROS <Tiffanie Topete RN - Last Filed: 10/05/23 11:00> ROS ED Constitutional Constitutional ED: Denies chills, fever(s), sweats or weight loss Cardiovascular Cardiovascular: Denies chest pain or palpitations Respiratory/Chest Respiratory/Chest: Denies cough or dyspnea Gastrointestinal Gastrointestinal: Reports melena; Denies abdominal pain, constipation, diarrhea, nausea or vomiting Genitourinary Genitourinary ED: Reports LMP (females 10-50) Details: Comment: (09/29/2023); Denies dysuria or hematuria Musculoskeletal Musculoskeletal: Reports back pain; Denies arthralgias or myalgias Neurologic Neurologic: Denies weakness EXAM <Tiffanie Topete RN - Last Filed: 10/05/23 11:00> Physical Exam Const Vital Signs: 10/05/23 09:56 Temperature 97.6 F L Temperature Source Temporal Pulse Rate 77 Respiratory Rate 18 Blood Pressure 111/75 Blood Pressure Mean 87 Pulse Ox 100 Oxygen Delivery Method Room Air Positive well nourished and well developed General Appearance ED: well developed and NAD HEENT Reports moist mucous membranes Eyes PERRL Chest Wall inspection of chest normal and palpation of chest normal Resp normal respiratory effort and clear to auscultation bilaterally Cardio regular rate, regular rhythm, S1 normal heart sound and S2 normal heart sound GI normal to inspection, nondistended, normoactive bowel sounds and non-tender Palpation: soft Narrative: Denies dysuria or hematuria Back/Spine no CVA tenderness Extremity normal to inspection Neuro oriented x3 Sensorium / Orientation: alert Motor Exam: strength 5/5 throughout Psych mental status grossly normal Skin no rashes or lesions noted <Dr. Renzo Parsons MD - Last Filed: 10/05/23 10:46> Physical Exam Const Vital Signs: 10/05/23 09:56 Temperature 97.6 F L Temperature Source Temporal Pulse Rate 77 Respiratory Rate 18 Blood Pressure 111/75 Blood Pressure Mean 87 Pulse Ox 100 Oxygen Delivery Method Room Air MDM <Tiffanie Topete RN - Last Filed: 10/05/23 11:00> MDM MDM Narrative Medical decision making narrative: Labwork obtained to evaluate for leukocytosis, anemia, and electrolyte derangement. I have personally performed a face to face assessment of the patient and have reviewed the KALI Note. I performed a substantive portion of the visit including all aspects of the following. My raya findings include: History is [27-year-old female no past medical history. Today has had 5 small episodes of rectal bleeding. No melanotic stool. No pain. No fever. No prior history. On no blood thinners or any other medication. No bruising or nosebleeds. No history of prior colonoscopy or any type of anal instrumentation. Denies any other complaints.] Exam is [well-appearing 27-year-old female. Vital signs stable afebrile. HEENT exam normal. Lungs clear. Heart regular rhythm rate about 75 no murmur. Abdomen soft nontender. Back unremarkable. Moving all 4 extremities. No edema. Normal strength. Skin no rashes. No petechiae or purpura. No bruising. Rectal exam done patient's mom present in the room external exam normal with no external hemorrhoids. No blood. Rectal exam minimal stool no blood no melena. I do not appreciate any masses in her rectum nor was she having any pain.] Medical Decision Making [CBC. Differential would include internal hemorrhoids concerns, follow-up, versus other causes of GI bleed. Screening labs those were okay outpatient follow-up for colonoscopy today.] Other additions or changes: [None] Lab Data Attestation: I reviewed the patient's lab results. Labs: Laboratory Results - last 24 hr 10/05/23 10:36 WBC 5.2 RBC 4.67 Hgb 13.6 Hct 40.5 MCV 86.7 MCH 29.1 MCHC 33.6 RDW Std Deviation 44.4 H RDW Coeff of Kirby 14.1 Plt Count 198 MPV 11.2 Immature Gran % (Auto) 0.200 Neut % (Auto) 65.8 Lymph % (Auto) 22.8 Crane % (Auto) 8.1 Eos % (Auto) 2.7 Baso % (Auto) 0.4 Absolute Neuts (auto) 3.4 Absolute Lymphs (auto) 1.18 Nucleated RBC % 0 Differential Diagnosis Abdominal Pain: Bowel obstruction and UTI Management Discussion w/another healthcare provider: Other (Dr. Parsons, ED provider) Treatment and Re-Evaluation :: CBC shows a normal white count of 5.2, hemoglobin 13.6 with hematocrit 40.5. Chemistries are normal except for a slightly elevated chloride at 112. On repeat exam, patient appears to be feeling well with no recurrent episodes of rectal bleeding. Lab results shared with patient and mother. Discussed plan to discharge home with follow-up with general surgery in 1 week and to return for worsening symptoms. Patient agreeable. <Dr. Renzo Parsons MD - Last Filed: 10/05/23 10:46> [facility] Narrative Medical decision making narrative: I have personally performed a face to face assessment of the patient and have reviewed the KALI Note. I performed a substantive portion of the visit including all aspects of the following. My raya findings include: History is [27-year-old female no past medical history. Today has had 5 small episodes of rectal bleeding. No melanotic stool. No pain. No fever. No prior history. On no blood thinners or any other medication. No bruising or nosebleeds. No history of prior colonoscopy or any type of anal instrumentation. Denies any other complaints.] Exam is [well-appearing 27-year-old female. Vital signs stable afebrile. HEENT exam normal. Lungs clear. Heart regular rhythm rate about 75 no murmur. Abdomen soft nontender. Back unremarkable. Moving all 4 extremities. No edema. Normal strength. Skin no rashes. No petechiae or purpura. No bruising. Rectal exam done patient's mom present in the room external exam normal with no external hemorrhoids. No blood. Rectal exam minimal stool no blood no melena. I do not appreciate any masses in her rectum nor was she having any pain.] Medical Decision Making [CBC. Differential would include internal hemorrhoids concerns, follow-up, versus other causes of GI bleed. Screening labs those were okay outpatient follow-up for colonoscopy today.] Other additions or changes: [None] History & Record Review Discussion w/independent historian: Patient and Family Lab Data Attestation: I reviewed the patient's lab results. Lab results narrative: CBC normal. White count of 5. H&H 13.6 and 40. Platelets 198. Labs: Laboratory Results - last 24 hr 10/05/23 10:36 WBC 5.2 RBC 4.67 Hgb 13.6 Hct 40.5 MCV 86.7 MCH 29.1 MCHC 33.6 RDW Std Deviation 44.4 H RDW Coeff of Kirby 14.1 Plt Count 198 MPV 11.2 Immature Gran % (Auto) 0.200 Neut % (Auto) 65.8 Lymph % (Auto) 22.8 Crane % (Auto) 8.1 Eos % (Auto) 2.7 Baso % (Auto) 0.4 Absolute Neuts (auto) 3.4 Absolute Lymphs (auto) 1.18 Nucleated RBC % 0 Discharge Plan Triage Chief Complaint: GI Bleed ED Provider: Renzo Parsons Dx/Rx/DC Orders Clinical Impression: Rectal bleeding Instructions: ED Lower GI Bleeding (Stable) Prescriptions: No Action NK Primary Care Provider: Care Physician,No Primary Referrals: Care Physician,No Primary [Primary Care Provider] - Maia Long MD [Med Staff - Active Staff] - Activity Restrictions/Additional Instructions: Follow-up with Dr. Aftab weiss in 1 week. Return for worsening bleeding, dizzy, lightheadedness. Disposition Disposition: Home, Self Care
[2023-10-05 10:43] LABS: Absolute Lymphocyte Count 1.18 X10^3/uL (0.83-4.51); Absolute Neutrophil Count 3.4 X10^3/uL (2.0-7.7); Basophil# 0.02 X10^3/uL; Basophil% 0.4 % (0-1); Eosinophil# 0.14 X10^3/uL; Eosinophils% 2.7 % (0-5); Hematocrit 40.5 % (37-47); Hemoglobin 13.6 g/dL (12.0-15.0); Lymphocyte # 1.18 X10^3/ul (0.83-4.51); Lymphocyte % 22.8 % (19-41); Mean Corp Hgb Conc 33.6 g/dL (32-36); Mean Corpuscular Hgb 29.1 pg (27.0-32.0); Mean Corpuscular Volume 86.7 fL (81-99); Mean Platelet Vol. 11.2 fl (6.2-12.0); Monocyte# 0.42 X10^3/uL; Monocyte% 8.1 % (0-10); NRBC Flagged by Analyzer 0 % (0-5); Neutrophil # 3.41 X10^3/uL (2.7-7.7); Neutrophil % 65.8 % (47-70); Platelet Count 198 K/mm3 (150-450); RBC Distribution Width CV 14.1 % (11.6-14.6); RBC Distribution Width SD 44.4 fl (35.1-43.9); Red Blood Count 4.67 M/mm3 (4.2-5.4); White Blood Count 5.2 K/mm3 (4.4-11.0)
[2023-10-05 10:57] LABS: Anion Gap 1 (5-15); BUN 7 mg/dL (7-18); BUN/Creat Ratio 11.7 RATIO (10-20); Calcium,Total 9.2 mg/dL (8.5-10.1); Chloride 112 mmol/L (98-107); EST Glomerular Filtration Rate 125 mL/min (>60); Est Glom Filt Rate - Afr Amer 152 mL/min (>60); Estimated Creatinine Clearance 139.56 ml/min; Glucose 87 mg/dL (74-106); Potassium 3.7 mmol/L (3.5-5.1); Sodium Level 139 mmol/L (136-145)
[2023-10-05 11:25] VITALS: BP 124/78; PULSE 76; RESP 16; TEMP 36.4; O2SAT 99
--- OUTSIDE RECORDS SUMMARY | 2023-10-05 12:48 | XMS RPT_ITS | CCD ---
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 Role Phone Unavailable Primary Care Provider Unavailabl e Allergies Allergy Classification Reported Allergen(s) Allergy Type Date of Onset Reaction(s) Facility (5 sources) Acetaminophen; Translations: [ACETAMINOPHEN] Drug Allergy 6 Unknown [facility] (5 sources) Acetaminophen / Chlorpheniramine / Dextromethorphan / Pseudoephedrine; Translations: [KFO-LSSHOCQSY-EV-AC ETAMINOPHEN] Drug Allergy 5 Intolerance [facility] (5 sources) Azithromycin; Translations: [AZITHROMYCIN] Drug Allergy 1 Other: See Comments [facility] Work Phone: (5 sources) diphenhydrAMINE; Translations: [DIPHENHYDRAMINE HCL] Drug Allergy 3 Other: See Comments [facility] Work Phone: Medications Current Medications Medication Drug Class(es) Dates Sig (Normalized) Sig (Original) predniSONE 20 mg oral tablet (5 sources) Start: 08-02-2022 End: 08-08-2022 take 2 tablets by mouth once daily predniSONE (DELTASONE) 20 mg tablet Take 2 tablets by mouth once daily for 5 days. 10 tablet 0 08/03/2022 08/08/2022 Active Problems Active Problems Problem Classification Problem Date Documented Da te Episodic/Chronic Anxiety disorders (4 sources) Anxiety; Translations: [Anxiety disorder, unspecified] Onset: 09-05-2014 09-05-2014 Chronic Other complications of (4 sources) Maternal obesity complicating , childbirth and the puerperium, antepartum; Translations: [Obesity complicating , unspecified trimester] Onset: 10-13-2015 10-13-2015 Chronic Other upper respiratory infections (1 source) Sore throat symptom; Translations: [Acute pharyngitis, unspecified] Episodic Substance-related disorders (4 sources) Tobacco user; Translations: [Nicotine dependence, unspecified, uncomplicated] Onset: 07-28-2008 08-16-2021 Chronic Past or Other Problems Problem Classification Problem Date Documented Date Episodic/Chronic Deficiency and other anemia (4 sources) Iron deficiency anemia secondary to inadequate dietary iron intake; Translations: [Other iron deficiency anemias] Onset: 02-16-2016 02-16-2016 Episodic Diabetes or abnormal glucose tolerance complicating ; childbirth; or the puerperium (4 sources) Abnormal glucose level; Translations: [Abnormal glucose complicating ] Onset: 10-16-2015 08-16-2021 Episodic Other connective tissue disease (4 sources) Digital mucous cyst of left hand; Translations: [Ganglion, left hand] Onset: 09-25-2017 11-16-2017 Episodic Residual codes; unclassified (4 sources) H/O Spinal surgery; Translations: [Other specified postprocedural states] Onset: 10-13-2015 08-16-2021 Episodic Results Test Name Value Interpretation Reference Range Facil ity Vital Signs Date Time Vital Sign Value Performing Clinician Avi grossman 08-02-2022 13:31-0500 Body temperature 97.39 [degF] Holly Valle APRN.CNP Work Phone: [facility] 08-02-2022 13:31-0500 Diastolic blood pressure 68 mm[Hg] Holly Valle APRN.CNP Work Phone: [facility] 08-02-2022 13:31-0500 Heart rate 106 /min Holly Valle APRN.CNP Work Phone: [facility] 08-02-2022 13:31-0500 Respiratory rate 16 /min Holly Valle APRN.CNP Work Phone: [facility] 08-02-2022 13:31-0500 SaO2% (BldA) [Mass fraction] 98 % Holly Valle APRN.CNP Work Phone: [facility] 08-02-2022 13:31-0500 Systolic blood pressure 122 mm[Hg] Holly Valle APRN.OPTICIAN Work Phone: [facility] Encounters Encounter Date Encounter Type Care Provider Facility Start: 04-29-2023 End: 04-29-2023 ambulatory Facility:[facility] Start: 08-03-2022 Refill Holly saleh APRN.OPTICIAN Work Phone: [facility] Procedures Date Procedure Procedure Detail Performing Clinician Start: 08-02-2022 STREP A MOLECULAR (POC) Holly Valle APRN.OPTICIAN Work Phone: Plan of Treatment Date Care Activity Detail Author Start: 02-16-2026 Urine microalbumin profile DTAP,TDAP,TD (9 - Td or Tdap) [facility] Start: 04-21-2022 Influenza vaccination INFLUENZA (#1) [facility] Start: 08-21-2021 DEPRESSION ASSESSMENT DEPRESSION ASS ESSMENT [facility] Start: 05-21-2018 PAP TESTING PAP TESTING [facility] Start: 09-29-2015 PNEUMOCOCCAL (2 - PCV) PNEUMOCOCCAL (2 - PCV) [facility] Start: 05-13-1994 COVID-19 VACCINE (#1) COVID-19 VACCI NE (#1) [facility] Immunizations Immunization Date Immunization Notes Care Provider Wes cisse 06-06-2017 influenza, injectabl e, quadrivalent, contains preservative Holly Valle APRN.OPTICIAN Work Phone: [facility] 02-17-2016 tetanus toxoid, redu juan diphtheria toxoid, and acellular pertussis vaccine, adsorbed Holly Valle APRN.OPTICIAN Work Phone: [facility] Work Phone: 09-29-2014 influenza, seasonal, injectable Holly Valle APRN.OPTICIAN Work Phone: [facility] 09-29-2014 pneumococcal polysaccharide vaccine, 23 valent Holly Valle APRN.OPTICIAN Work Phone: [facility] 12-12-2013 tetanus toxoid, redu juan diphtheria toxoid, and acellular pertussis vaccine, adsorbed Holly Valle APRN.OPTICIAN Work Phone: [facility] 07-23-2013 influenza virus vacc ine, unspecified formulation Holly Valle APRN.[facility] Work Phone: [facility] Work Phone: 07-03-2010 human papilloma viru s vaccine, quadrivalent Holly Valle APRN.OPTICIAN Work Phone: [facility] 03-03-2010 human papilloma viru s vaccine, quadrivalent Holly Valle APRN.OPTICIAN Work Phone: [facility] Work Phone: 01-02-2010 human papilloma viru s vaccine, quadrivalent Holly Valle APRN.[facility] Work Phone: [facility] Work Phone: 01-02-2010 meningococcal polysaccharide vaccine (MPSV4) Holly Valle APRN.[facility] Work Phone: [facility] Work Phone: 01-02-2010 tetanus toxoid, redu juan diphtheria toxoid, and acellular pertussis vaccine, adsorbed Holly Valle APRN.[facility] Work Phone: [facility] Work Phone: 12-09-1998 diphtheria, tetanus toxoids and acellular pertussis vaccine Holly Valle APRN.[facility] Work Phone: [facility] Work Phone: 12-09-1998 measles, mumps and rubella virus vaccine Holly Valle APRN.OPTICIAN Work Phone: [facility] Work Phone: 12-09-1998 poliovirus vaccine, inactivated Holly Valle APRN.[facility] Work Phone: [facility] Work Phone: 09-21-1997 Chicken Pox (disease) Angelica Valle APRN.OPTICIAN Work Phone: [facility] Work Phone: 05-09-1995 DTP-Haemophilus influenzae type b conjugate vaccine Holly Valle APRN.OPTICIAN Work Phone: [facility] Work Phone: 05-09-1995 poliovirus vaccine, inactivated Holly Valle APRN.[facility] Work Phone: [facility] Work Phone: 02-06-1995 haemophilus influenz ae type b vaccine, HbOC conjugate Holly Valle APRN.[facility] Work Phone: [facility] Work Phone: 02-06-1995 measles, mumps and rubella virus vaccine Hollykate Valle APRN.[facility] Work Phone: [facility] Work Phone: 05-18-1994 DTP-Haemophilus influenzae type b conjugate vaccine Holly Valle APRN.[facility] Work Phone: [facility] Work Phone: 05-18-1994 hepatitis B vaccine, pediatric or pediatric/adolescent dosage Holly Valle APRN.[facility] Work Phone: [facility] Work Phone: 03-15-1994 DTP-Haemophilus influenzae type b conjugate vaccine Holly Valle APRN.[facility] Work Phone: [facility] Work Phone: 03-15-1994 poliovirus vaccine, inactivated Holly Valle APRN.[facility] Work Phone: [facility] Work Phone: 01-18-1994 DTP-Haemophilus influenzae type b conjugate vaccine Holly Valle APRN.OPTICIAN Work Phone: [facility] Work Phone: 01-18-1994 hepatitis B vaccine, pediatric or pediatric/adolescent dosage Holly Valle APRN.[facility] Work Phone: [facility] Work Phone: 01-18-1994 poliovirus vaccine, inactivated Holly Valle APRN.[facility] Work Phone: [facility] Work Phone: 1993 hepatitis B vaccine, pediatric or pediatric/adolescent dosage Holly Valle APRN.OPTICIAN Work Phone: [facility] Work Phone: Payers Date Payer Category Payer [facility] [place] [facility] MEDICA[facility] [id number] 2016-Present [phone] [address] [place] [address] Medicaid [id number] 2016 Medicaid [id number] Social History Date Type Detail Facility Start: [facility] Start: 02-20-2009 History of tobacco use Cigarette Smo ker [facility] Start: 08-02-2022 Cigarettes smoked cu rrent (pack per day) - Reported 0.3 [facility] Start: 08-02-2022 Tobacco use and exposure Smoke less tobacco non-user [facility] Start: 08-02-2022 Alcohol intake Current drinke r of alcohol (finding) [facility] Start: 08-03-2016 Alcohol Comment rare [facility] Start: 1995 Sex Assigned At Not on file [facility] Progress note 04-29-2023 Note Date & Type Note Facility 04-29-2023 Note HNO ID: [id number] Author: Azalea Bartholomew APRN.OPTICIAN Service: ? Author Type: Nurse Practitioner Type: Progress Notes Filed: 04/29/2023 3:32 PM Note Text: Subjective Eye Problem Pertinent negatives include no chills, fever, headaches or rash. Kevin Sarah is a 27 year old female who presents with right eye irritation. She feels like something is in her eye since last night. She denies visual changes but does have trouble keeping her eye open. She has used some OTC eye numbing drops. Review of Systems Constitutional: Negative for chills and fever. HENT: Negative. Eyes: Positive for photophobia, pain and redness. Negative for blurred vision, double vision and discharge. Skin: Negative for itching and rash. Neurological: Negative for headaches. BP 112/62 Pulse 80 Temp 36.7 ?C (98.1 ?F) Resp 16 Wt 78.9 kg (174 lb) LMP (LMP Unknown) SpO2 98% BMI 26.46 kg/m? 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 FAMILY HISTORY Problem Relation Age of Onset Diabetes Mother gestational other (hypoglycemia) Father Heart Maternal Grandmother Hypertension Maternal Grandmother Diabetes Paternal Grandfather Diabetes Other mggf other (rheumatoid arthritis) Other mggm around 1974 Social History Tobacco Use Smoking status: Every Day Packs/day: 0.30 Years: 5.00 Additional pack years: 0.00 Total pack years: 1.50 Types: Cigarettes Start date: 02/20/2009 Smokeless tobacco: Never Substance Use Topics Alcohol use: Yes Comment: rare Drug use: No Objective Physical Exam Vitals and nursing note reviewed. Constitutional: Appearance: Normal appearance. Eyes: General: Lids are normal. Lids are everted, no foreign bodies appreciated. Vision grossly intact. Right eye: No foreign body, discharge or hordeolum. Extraocular Movements: Right eye: Normal extraocular motion. Conjunctiva/sclera: Right eye: Right conjunctiva is injected. No chemosis, exudate or hemorrhage. Pupils: Pupils are equal, round, and reactive to light. Right eye: Pupil is round, reactive and not sluggish. Corneal abrasion and fluorescein uptake present. Viv exam negative. Skin: General: Skin is warm and dry. Findings: No erythema or rash. Neurological: Mental Status: She is alert. 1 drop of tetracaine instilled into eye. Fluorescein stain instilled into eye and examined under black light. Corneal abrasion identified at 11:00 position. Patient tolerated procedure well. ASSESSMENT/PLAN: 1. Abrasion of right cornea, initial encounter - ICD9: 918.1, ICD10: S05.01XA - ERYTHROMYCIN 5 MG/GRAM (0.5 %) EYE OINTMENT - Follow-up with your eye doctor Monday for recheck. - Discussed red flags and need for immediate medical evaluation if any occur. - Discussed supportive care treatment with fluids, rest and analgesia. - Discussed expected course of illness Azalea Bartholomew APRN.CNP [facility] Note 08-03-2022 Telephone Encounter - Holly Valle APRN.CASSIE - 08/03/2022 12:22 PM ESTTelephone Encounter - Tamia Napoles LPN - 08/03/2022 10:07 AM EST Note Date & Type Note Facility 08-03-2022 Miscellaneous Notes Formattin g of this note might be different from the original. Sent new script Patient phones requesting refills as follows: Requested Prescriptions Pending Prescriptions Disp Refills predniSONE (DELTASONE) 20 mg tablet [Pharmacy Med Name: PREDNISONE 20 MG TABLET] 1 tablet 0 Sig: TAKE 2 TABLETS BY MOUTH EVERY DAY Please review and advise. Tamia Napoles LPN documented in this encounter [facility] Progress note 08-02-2022 Note Date & Type Note Facility 08-02-2022 Note HNO ID: [id number] Author: Holly Valle APRN.CASSIE Service: ? Author Type: Nurse Practitioner Type: Progress Notes Filed: 08/02/2022 1:53 PM Note Text: CC: Patient presents with: Pain, Throat: Pt reported pain rated 8, redness, tongue irritation, x1 wk. HPI: Kevin Sarah is a 26 year old female who presents to the office with complaint of sore throat and irritated bumps on tongue for a week. Symptoms are staying the same. Associated symptoms includes sore throat. Denies fever, ear pain, nausea, vomiting , and diarrhea. Treatments tried include nothing so far. with no relief of symptoms. Sick contacts: unknown. History of asthma, frequent episodes of bronchitis, chronic bronchitis, bronchiectasis or COPD: No Smoker: No Seasonal/environmental allergies: No The ROS is otherwise negative. The patient's pmh, medications, allergies, and past visits are reviewed. PHYSICAL EXAM: BP 122/68 Pulse 106 Temp 36.3 ?C (97.4 ?F) Resp 16 LMP (LMP Unknown) SpO2 98% General appearance: alert, cooperative, pleasant, in no acute distress Head: Normocephalic Eyes: EOM's intact, conjunctiva pink and moist, no icterus, sclera white, non-injected Ears: Right ear: External ear/canal- Normal, TM - clear with good landmarks. Left ear: External ear/canal- Normal, TM - clear with good landmarks Oropharynx:moderate erythema, without exudates present Heart: Negative. RRR without obvious murmur, gallop, or rubs. No ectopy. 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 FAMILY HISTORY Problem Relation Age of Onset Diabetes Mother gestational other (hypoglycemia) Father Heart Maternal Grandmother Hypertension Maternal Grandmother Diabetes Paternal Grandfather Diabetes Other mggf other (rheumatoid arthritis) Other mggm around 1974 Social History Tobacco Use Smoking status: Every Day Packs/day: 0.30 Years: 5.00 Pack years: 1.50 Types: Cigarettes Start date: 02/20/2009 Smokeless tobacco: Never Substance Use Topics Alcohol use: Yes Comment: rare Drug use: No ASSESSMENT/PLAN: 1. Sore throat - ICD9: 462, ICD10: J02.9 - STREP A MOLECULAR (POC) - negative Prednisone daily for 5 days. Prescription instructions reviewed with patient as applicable. Potential red flag symptoms discussed with the patient. Reviewed appropriate action plan to take if red flag symptoms occur. Patient agreeable to treatment plan. Holly Valle APRN.CASSIE [facility] Instructions 08-02-2022 Patient Instructions Note Date & Type Note Facility 08-02-2022 Instructions Holly Valle APRN.CASSIE - 08/02/2022 1:51 PM EST Images from the original note were not included. Sore Throat (Pharyngitis) What is a sore throat? When your child complains that his throat is sore, it is usually a symptom of an illness, such as a cold. When you look at the throat with a light, it will be bright red. Children too young to talk may have a sore throat if they refuse to eat or begin to cry during feedings. What is the cause? Most sore throats are caused by viruses and are part of a cold. About 10% of sore throats are caused by strep bacteria. Tonsillitis (temporary swelling and redness of the tonsils) usually occurs with any throat infection, viral or bacterial. Swollen tonsils do not have any special meaning. Children who sleep with their mouths open often wake up in the morning with a dry mouth and sore throat. It feels better within an hour of having something to drink. Use a humidifier to help prevent this problem. Children with a postnasal drip from draining sinuses often have a sore throat from the secretions or from clearing their throat often. How long does it last? Sore throats caused by viral illnesses usually last 4 or 5 days. A sore throat caused by Strep will start feeling better soon after being treated with penicillin or other antibiotics. After a child has been taking medicine for strep for 24 hours, strep is no longer contagious. Your child can then return to day care or school if his fever is gone and he's feeling better. Your child must take all of the antibiotic even if he is feeling better. If your child doesn't take all of the medicine, the sore throat could come back. Why do a throat culture? A throat culture or rapid strep test is the only way to know whether a sore throat is caused by strep bacteria or a virus. Without treatment, a strep throat has a small risk for acute rheumatic fever. Rheumatic fever is a complication of strep infections that can lead to permanent damage to the valves of the heart. The throat culture is not urgent, however, since treating a strep infection within 7 days of when it begins can prevent rheumatic fever. A throat culture is not necessary if your child's sore throat is part of a cold AND the main symptom is croup, hoarseness, or a cough, unless the sore throat lasts more than 5 days. Rapid strep tests are helpful only when their results are positive. If they are negative, a throat culture should be done to steel pickler the 10% of strep infections that the rapid tests miss. Avoid rapid strep tests performed in shopping malls or at home because they tend to be inaccurate. How can I take care of my child? Throat pain relief Children over age 1 can sip warm chicken broth or apple juice. Children over age 4 can suck on hard candy (butterscotch seems to be a soothing flavor) or lollipops. Children over 8 years old can also gargle with warm salt water (1/4 teaspoon of salt per glass). Diet A sore throat can make some foods hard to swallow. Provide your child with a diet of soft foods for a few days if he prefers it. Cold drinks and milkshakes are especially good. Do not give your child salty or spicy foods or citrus fruits. Fever and pain relief Give your child acetaminophen (Tylenol) or ibuprofen (Advil) for the sore throat or for a fever over 102 F (39 C). Common mistakes in treating sore throat Avoid expensive throat sprays or throat lozenges. Not only are they no more effective than hard candy, but many also contain an ingredient (benzocaine) that may cause an allergic reaction. Do not use leftover antibiotics from siblings or friends. Leftover antibiotics should be thrown out because they deteriorate faster than other drugs. Also, antibiotics help only strep throats. They have no effect on viruses, and they can cause harm. They also make it difficult to find out what is wrong if your child becomes sicker. Don't allow anyone to smoke around children. When should I call my child's healthcare provider? Call IMMEDIATELY if: Your child is drooling or having great difficulty swallowing. Your child is having trouble breathing. Your child is acting very sick. Call during office hours: To make an appointment for a throat culture for any other child who has had a sore throat for more than 48 hours (especially if the child also has a fever without any symptoms of a cold). Published by [employer]. This content is reviewed periodically and is subject to change as new health information becomes available. The information is intended to inform and educate and is not a replacement for medical evaluation, advice, diagnosis or treatment by a healthcare professional. Written by Giacomo Robb M.D., author of Your Child's Health, [employer]. Copyright 2007 [employer] and/or one of its subsidiaries. All Rights Reserved. Copyright [employer] 2008 Pediatric Advisor documented in this encounter [facility] History of Present illness Narrative 08-02-2022 Holly Valle APRN.OPTICIAN - 08/02/2022 1:40 PM EST Note Date & Type Note Facility 08-02-2022 History of Presen t illness Narrative CC: Patient presents with: Pain, Throat: Pt reported pain rated 8, redness, tongue irritation, x1 wk. HPI: Kevin Sarah is a 26 year old female who presents to the office with complaint of sore throat and irritated bumps on tongue for a week. Symptoms are staying the same. Associated symptoms includes sore throat. Denies fever, ear pain, nausea, vomiting , and diarrhea. Treatments tried include nothing so far. with no relief of symptoms. Sick contacts: unknown. History of asthma, frequent episodes of bronchitis, chronic bronchitis, bronchiectasis or COPD: No Smoker: No Seasonal/environmental allergies: No The ROS is otherwise negative. The patient's pmh, medications, allergies, and past visits are reviewed. PHYSICAL EXAM: BP 122/68 Pulse 106 Temp 36.3 C (97.4 F) Resp 16 LMP (LMP Unknown) SpO2 98% General appearance: alert, cooperative, pleasant, in no acute distress Head: Normocephalic Eyes: EOM's intact, conjunctiva pink and moist, no icterus, sclera white, non-injected Ears: Right ear: External ear/canal- Normal, TM - clear with good landmarks. Left ear: External ear/canal- Normal, TM - clear with good landmarks Oropharynx:moderate erythema, without exudates present Heart: Negative. RRR without obvious murmur, gallop, or rubs. No ectopy. 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 FAMILY HISTORY Problem Relation Age of Onset Diabetes Mother gestational other (hypoglycemia) Father Heart Maternal Grandmother Hypertension Maternal Grandmother Diabetes Paternal Grandfather Diabetes Other mggf other (rheumatoid arthritis) Other mggm around 1974 Social History Tobacco Use Smoking status: Every Day Packs/day: 0.30 Years: 5.00 Pack years: 1.50 Types: Cigarettes Start date: 02/20/2009 Smokeless tobacco: Never Substance Use Topics Alcohol use: Yes Comment: rare Drug use: No ASSESSMENT/PLAN: 1. Sore throat - ICD9: 462, ICD10: J02.9 - STREP A MOLECULAR (POC) - negative Prednisone daily for 5 days. Prescription instructions reviewed with patient as applicable. Potential red flag symptoms discussed with the patient. Reviewed appropriate action plan to take if red flag symptoms occur. Patient agreeable to treatment plan. Holly Valle APRN.OPTICIAN documented in this encounter [facility] History of Past illness Narrative 10-13-2015 Note Date & Type Note Facility documented as of this encounter (statuses as of 08/02/2022) [facility] History of Past illness Narrative 10-13-2015 Note Date & Type Note Facility documented as of this encounter (statuses as of 08/02/2022) [facility] History of Past illness Narrative 10-13-2015 Note Date & Type Note Facility documented as of this encounter (statuses as of 08/03/2022) [facility] Evaluation note Note Date & Type Note Facility documented in this encounter [facility] Summary Purpose Family History No Family History Records Found Advance Directives No Advanced Directives Records Found Additional Source Comments Source Comments (unrecognize d section and content) In the event this informatio n is protected by the Federal Confidentiality of Alcohol and Drug Abuse Patient Records regulations: The Federal rules restrict any use of the information to criminally investigate or prosecute any alcohol or drug abuse patient.[facility] event this information is protected by the Federal Confidentiality of Alcohol and Drug Abuse Patient Records regulations: The Federal rules restrict any use of the information to criminally investigate or prosecute any alcohol or drug abuse patient.[facility] the event this information is protected by the Federal Confidentiality of Alcohol and Drug Abuse Patient Records regulations: The Federal rules restrict any use of the information to criminally investigate or prosecute any alcohol or drug abuse patient.[facility] the event this information is protected by the Federal Confidentiality of Alcohol and Drug Abuse Patient Records regulations: The Federal rules restrict any use of the information to criminally investigate or prosecute any alcohol or drug abuse patient.[facility] Reason for Visit (unrecogniz ed section and content) Reason Comments Med Change Request INFORMATION SOURCE (unrecogn ized section and content) FOR RECORDS PERTAINING TO PATIENTS WHO ARE OR HAVE BEEN ENROLLED IN A CHEMICAL DEPENDENCY/SUBSTANCEABUSE PROGRAM, SOME INFORMATION MAY BE OMITTED. This clinical summary was aggregated from multiple sources. Caution should be exercised in using it in the provision of clinical care. This summary normalizes information from multiple sources, and as a consequence, information in this document may materially change the coding, format and clinical context of patient data. In addition, data may be omitted in some cases. CLINICAL DECISIONS SHOULD BE BASED ON THE PRIMARY CLINICAL RECORDS. [employer] [facility]. provides no warranty or guarantee of the accuracy or completeness of information in this document.
== END 2023-10-05 11:26 | disposition home or self-care (01) ==
PROVIDERS: Emergency Provider Emergency Medicine; Visit Provider Emergency Medicine
DX: K62.5 Hemorrhage of anus and rectum (principal); M54.50 Low back pain, unspecified; F17.210 Nicotine dependence, cigarettes, uncomplicated
CPT/HCPCS: 80048; 85025; 99283